=== PATIENT | female | born 1960 | race Caucasian/White ===

== ENCOUNTER 2019-09-04 10:34 | Outpatient (CLI) | payer BC, SELFPAY ==
--- NOTE | 2019-09-04 | XR_ITS ---
WS: [id number] Left foot, 3 views, 09/04/2019 Clinical Data: FOOT PAIN Comparison: None. Findings: No fractures or dislocations are seen. No bone destruction or erosion is noted. The joint spaces and soft tissues are normal. There is a small Achilles spur. XR/XR foot LT min 3V* [id number] Impression: Negative left foot.
--- NOTE | 2019-09-04 10:41 | XR_ITS ---
WS: [id number] Right foot, 3 views, 09/04/2019 Clinical Data: foot pain Comparison: None. Findings: No fractures or dislocations are seen. No bone destruction or erosion is noted. The joint spaces and soft tissues are normal. There is a small Achilles spur and a small plantar spur. XR/XR foot RT min 3V* [id number] Impression: Negative right foot.
== END 2019-09-04 10:35 | disposition home or self-care (01) ==
LOC: RAD 10:37
PROVIDERS: Family Provider Internal Medicine; Visit Provider Podiatrist Foot & Ankle Surgery
DX: M79.671 Pain in right foot (principal); M79.672 Pain in left foot
CPT/HCPCS: 73630

== ENCOUNTER 2020-10-01 15:03 | Outpatient (CLI) | payer OTHER, SELFPAY | END 2020-10-01 15:04 | disposition home or self-care (01) | LOC: SPT 15:04 | PROVIDERS: PCP Nurse Practitioner Family; Visit Provider Podiatrist Foot & Ankle Surgery | DX: Z46.89 Encounter for fitting and adjustment of other specified devices (principal); M72.2 Plantar fascial fibromatosis | CPT/HCPCS: 97760; L4397 ==

== ENCOUNTER 2020-12-31 10:45 | Observation (INO) | payer OTHER, SELFPAY ==
[2020-12-31] VITALS (9 sets, daily range): BP systolic 134–167; BP diastolic 78–106; PULSE 60–98; RESP 16–25; TEMP 36.4–36.7; O2SAT 90–97; BMI 32.8
--- NOTE | 2020-12-31 | CT_ITS ---
WS: [id number] CT HEAD NONCONTRAST HISTORY: STROKE ALERT TECHNIQUE: Contiguous axial imaging performed through the brain in 2.5 mm imaging. Bone and soft tiss ue windows. Sagittal and coronal reformats reviewed. All CT scans at [facility] use at least one of these dose optimization techniques: automated exposure control; mA and/or kV adjustment per pa tient size (includes targeted exams where dose is matched to clinical indication); or iterative recon struction. DLP: 895.01 mGy-cm. COMPARISON: None available. No acute intracranial hemorrhage, midline shift or mass effect. Very mild atrophy. There are several small lacunar infarcts within the basal ganglia. The largest may be a perivascular space along the inferior LEFT basal ganglia. No acute area of sulcal effacement. M ild chronic microvascular ischemic disease. Ventricles: Normal size with no hydrocephalus. No inferior displacement of the cerebellar tonsils. Paranasal sinuses: As visualized are clear. Mastoid air cells: Well pneumatized. Calvarium and scalp: Skull is intact with no soft tissue edema or swelling. CT/CT head wo con* [id number] IMPRESSION: 1. No acute intracranial hemorrhage or edema. 2. Bilateral, multiple small lacunar infarcts in the basal ganglia. Notified Roderick Magaña DO at 12/31/2020 10:59 AM.
--- NOTE | 2020-12-31 11:00 | ECG_ITS ---
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 Measurements Intervals Mcintosh Rate: 88 P: 33 CA: 158 QRS: 31 QRSD: 79 T: 55 QT: 368 QTc: 446 Interpretive Statements SINUS RHYTHM No previous ECG available for comparison Electronically Signed On 01-01-2021 7:31:28 CUT OFF SAWYER by Megan Clements M.D. [email or web address]
--- NOTE | 2020-12-31 11:02 | ED_ITS ---
HPI - Neuro Symptoms/Deficit General: Chief Complaint: Neuro Symptoms/Deficit Stated Complaint: STROKE ALERT/ R SIDE WEAKNESS Time Seen by Provider: 12/31/20 11:00 History of Present Illness: HPI Narrative: Ms. Ramirez is a 60-year-old lady with history of hypertension and depression who presents to the emergency department due to strokelike symptoms. Patient reports being at her baseline health and was starting to get ready feeling normal this morning when at about 930 she was standing in the bathroom had acute onset of bilateral foot numbness and weakness. She reports having difficulty walking at that time and managed to stumble towards her bed. There is no fall or head strike. She subsequently had right-sided numbness and weakness. Symptoms persisted until arrival at the emergency department. She denies similar episodes in the past. No history of neck or back injury. Overall the intensity symptoms was moderate to severe. The course is now improved with near complete resolution other than mild difference in sensory that she still reports on the right lower extremity. No other specific exacerbating relieving factors identified. Review of Systems General: Reports: 10 or more systems reviewed and unremarkable except in HPI and below PFSH ED PFSH: Medical History (Updated 01/02/21 @ 00:00 by ) Depression Heavy cigarette smoker Hypertension NSAID long-term use Surgical History History of bilateral ligation of fallopian tubes Family History Brother , At 48-49 of [place] CAD (coronary artery disease) Social History Smoking and tobacco status: current every day smoker cigarettes Packs smoked per day: 2 Alcohol intake: current Alcohol intake frequency: holidays/special occasions only Lives independently: Yes Household members: spouse Marital status: Current occupational status: employed 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 No acute distress. Eyes - PERRL, no conjunctival injection ENMT - Atraumatic external nose and ears. Moist mucous membranes NECK - supple. trachea midline CARDIOVASCULAR - regular rate and rhythm. RESPIRATORY -clear to auscultation bilaterally. ABDOMEN/GI - Nontender/Nondistended. MSK - Extremities without obvious deformity or tenderness to palpation SKIN - Warm, Dry NEURO - NIHSS 0. Course ED course: - Patient was seen and evaluated by me at bedside prior to my evaluation Dr. Christine with the neurology service per stroke activation protocol. NIHSS [address], improving to 0 upon recheck. - Patient placed on cardiac monitors, IV access obtained - Initial evaluation notable for no acute distress, nontoxic appearance. NIHSS upon my arrival 0 - Labs notable for no leukocytosis, elevated hemoglobin with unclear baseline. No acute metabolic abnormalities to explain patient's symptoms. No evidence of urinary tract infection. UDS positive for amphetamines however I think patient is extremely unlikely to have used amphetamines, more likely given pretest probability of false positive for cross-reactivity from venlafaxine though this is more typical of PCP positive. - Imaging notable for no acute stroke or severe vascular compromise - Upon serial reexamination after treatment the patient was similar without recurrence of symptoms, she still does note mild subjective sensory difference in the lower right extremity - Based on patient history, evaluation, labs, and imaging as interpreted the most likely cause of the patient's condition is strokelike episode concerning for TIA - The results of ED evaluation were discussed with the patient including plan for admission due to requirement for level of care not available if discharged to prevent significant worsening/deterioration. -Based on neurology service recommendations and ABCD2 score patient requires inpatient risk factor modification and additional evaluation - Patient was admitted without further deterioration or significant events. Vital Signs: Vital signs: Vital Signs Temperature 98.5 F 01/01/21 12:19 Pulse Rate 88 01/01/21 12:19 Respiratory Rate 14 01/01/21 12:19 Blood Pressure 138/70 01/01/21 12:19 Pulse Oximetry 98 01/01/21 12:19 MDM - Neuro Symptoms/Deficit Medical Records: Attestation: I reviewed the patient's medical records. Lab Data: Attestation: I reviewed the patient's lab results. Labs: Lab Results 12/31/20 12/31/20 12/31/20 11:06 11:06 11:06 WBC 7.2 10^3/uL 10^3/ uL (4.0-10.0) RBC 5.61 10^6/uL H 10 ^6/uL (4.1-5.3) Hgb 16.9 g/dL H g/dL (11.5-15.3) Hct 49.3 % H % (37.0-47.0) MCV 87.9 fl fl (81-99) MCH 30.1 pg pg (28.0-34.0) MCHC 34.3 g/dL g/dL (30.0-36.0) RDW 12.8 % % (12.1-15.1) Plt Count 333 10^3/cmm 10^3 /cmm (130-400) MPV 11.0 fL H fL (7.4-10.4) Neut % (Auto) 62.7 % % Lymph % (Auto) 26.3 % % [place] % (Auto) 6.5 % % Eos % (Auto) 2.8 % % Baso % (Auto) 0.7 % % Neut # (Auto) 4.52 10^3/uL 10^3 /uL (1.8-7.7) Lymph # (Auto) 1.9 10^3/uL 10^3/ uL (0.8-4.8) [place] # (Auto) 0.5 10^3/uL 10^3/ uL (0.2-0.9) Eos # (Auto) 0.2 10^3/uL 10^3/ uL (0.0-0.8) Baso # (Auto) 0.1 10^3/uL 10^3/ uL (0.0-0.1) Nucleated RBC % (a uto) 0 % % Nucleated RBCs # 0.0 /100WBC /100W BC PT 12.00 SECONDS L S ECONDS (12.1-14.9) INR 0.86 (0.8-1.2) APTT 27.6 SECONDS SECO NDS (23.9-36.7) Sodium 138 mmol/L mmol/L (136-145) Potassium 4.1 mmol/L mmol/L (3.5-5.1) Chloride 100 mmol/L mmol/L (98-107) Carbon Dioxide 24 mmol/L mmol/L (22-29) Anion Gap 18.1 (5-19) BUN 13 mg/dL mg/dL (6-20) Creatinine 0.6 mg/dL mg/dL (0.5-0.9) GFR Calculation 102.7 mL/min mL/m in (90-130) Glucose 130 mg/dL H mg/dL (65-115) POC Glucose Estimat Average Gl ucose Hemoglobin A1c Calculated Osmolal ity 288 mOsm/kg mOsm/ kg (285-295) Calcium 9.5 mg/dL mg/dL (8.5-10.5) Total Bilirubin 0.5 mg/dL mg/dL (0.15-1.2) AST 42 U/L H U/L (0-32) ALT 71 U/L H U/L (0-33) Alkaline Phosphata se 123 IU/L H IU/L (35-105) Troponin T Baselin e Troponin T 120 Min [place] Delta Troponin T Total Protein 6.9 g/dL g/dL (6.6-8.7) Albumin 4.7 g/dL g/dL (3.5-5.2) Globulin 2.2 g/dL g/dL (1.3-4.6) Triglycerides Cholesterol LDL Cholesterol, C alc Total VLDL Cholest nicolasa HDL Cholesterol Cholesterol/HDL Ra charli Urine Color Urine Appearance Urine pH Ur Specific Gravit y Urine Protein Urine Glucose (UA) Urine Ketones Urine Blood Urine Nitrate Urine Bilirubin Urine Urobilinogen Ur Leukocyte Emy ase Urine Opiates Scre en Ur Barbiturates Sc reen Ur Phencyclidine S crn Ur Amphetamines Sc reen U Benzodiazepines Scrn Urine Cocaine Scre en U Marijuana (THC) Screen 12/31/20 12/31/20 12/31/20 11:06 11:06 11:06 WBC RBC Hgb Hct MCV MCH MCHC RDW Plt Count MPV Neut % (Auto) Lymph % (Auto) [place] % (Auto) Eos % (Auto) Baso % (Auto) Neut # (Auto) Lymph # (Auto) [place] # (Auto) Eos # (Auto) Baso # (Auto) Nucleated RBC % (a uto) Nucleated RBCs # PT INR APTT Sodium Potassium Chloride Carbon Dioxide Anion Gap BUN Creatinine GFR Calculation Glucose POC Glucose Estimat Average Gl ucose 108 Hemoglobin A1c 5.4 % % (4.0-6.0) Calculated Osmolal ity Calcium Total Bilirubin AST ALT Alkaline Phosphata se Troponin T Baselin e 11 ng/L H ng/L (0-10) Troponin T 120 Min [place] Delta Troponin T Total Protein Albumin Globulin Triglycerides 108 mg/dL mg/dL (0-150) Cholesterol 209 mg/dL H mg/dL (0-200) LDL Cholesterol, C alc 128 mg/dL mg/dL (50-129) Total VLDL Cholest nicolasa 22 mg/dL mg/dL (0-30) HDL Cholesterol 59 mg/dL L mg/dL (60-100) Cholesterol/HDL Ra charli 3.54 mg/dL mg/dL (0.0-4.40) Urine Color Urine Appearance Urine pH Ur Specific Gravit y Urine Protein Urine Glucose (UA) Urine Ketones Urine Blood Urine Nitrate Urine Bilirubin Urine Urobilinogen Ur Leukocyte Emy ase Urine Opiates Scre en Ur Barbiturates Sc reen Ur Phencyclidine S crn Ur Amphetamines Sc reen U Benzodiazepines Scrn Urine Cocaine Scre en U Marijuana (THC) Screen 12/31/20 12/31/20 12/31/20 11:11 12:10 12:10 WBC RBC Hgb Hct MCV MCH MCHC RDW Plt Count MPV Neut % (Auto) Lymph % (Auto) [place] % (Auto) Eos % (Auto) Baso % (Auto) Neut # (Auto) Lymph # (Auto) [place] # (Auto) Eos # (Auto) Baso # (Auto) Nucleated RBC % (a uto) Nucleated RBCs # PT INR APTT Sodium Potassium Chloride Carbon Dioxide Anion Gap BUN Creatinine GFR Calculation Glucose POC Glucose 138 mg/dL H mg/dL (70-110) Estimat Average Gl ucose Hemoglobin A1c Calculated Osmolal ity Calcium Total Bilirubin AST ALT Alkaline Phosphata se Troponin T Baselin e Troponin T 120 Min [place] Delta Troponin T Total Protein Albumin Globulin Triglycerides Cholesterol LDL Cholesterol, C alc Total VLDL Cholest nicolasa HDL Cholesterol Cholesterol/HDL Ra charli Urine Color Yellow (Yellow) Urine Appearance Clear (CLEAR) Urine pH 7 (5-7) Ur Specific Gravit y 1.000 L (1.005-1.030) Urine Protein Neg (Negative) Urine Glucose (UA) Norm (Normal) Urine Ketones Negative (Negative) Urine Blood Neg (Negative) Urine Nitrate Negative (Negative) Urine Bilirubin Neg (Negative) Urine Urobilinogen Norm mg/dL mg/dL (Negative) Ur Leukocyte Emy ase Negative (Negative) Urine Opiates Scre en Negative ng/mL ng /mL (Negative) Ur Barbiturates Sc reen Negative ng/mL ng /mL (Negative) Ur Phencyclidine S crn Negative ng/mL ng /mL (Negative) Ur Amphetamines Sc reen Positive ng/mL H ng/mL (Negative) U Benzodiazepines Scrn Negative ng/mL ng /mL (Negative) Urine Cocaine Scre en Negative ng/mL ng /mL (Negative) U Marijuana (THC) Screen Negative ng/mL ng /mL (Negative) 12/31/20 13:06 WBC RBC Hgb Hct MCV MCH MCHC RDW Plt Count MPV Neut % (Auto) Lymph % (Auto) [place] % (Auto) Eos % (Auto) Baso % (Auto) Neut # (Auto) Lymph # (Auto) [place] # (Auto) Eos # (Auto) Baso # (Auto) Nucleated RBC % (a uto) Nucleated RBCs # PT INR APTT Sodium Potassium Chloride Carbon Dioxide Anion Gap BUN Creatinine GFR Calculation Glucose POC Glucose Estimat Average Gl ucose Hemoglobin A1c Calculated Osmolal ity Calcium Total Bilirubin AST ALT Alkaline Phosphata se Troponin T Baselin e Troponin T 120 Min [place] 10.41 ng/L H ng/L (0-10) Delta Troponin T -0.59 ABS# L ABS# (0-10) Total Protein Albumin Globulin Triglycerides Cholesterol LDL Cholesterol, C alc Total VLDL Cholest nicolasa HDL Cholesterol Cholesterol/HDL Ra charli Urine Color Urine Appearance Urine pH Ur Specific Gravit y Urine Protein Urine Glucose (UA) Urine Ketones Urine Blood Urine Nitrate Urine Bilirubin Urine Urobilinogen Ur Leukocyte Emy ase Urine Opiates Scre en Ur Barbiturates Sc reen Ur Phencyclidine S crn Ur Amphetamines Sc reen U Benzodiazepines Scrn Urine Cocaine Scre en U Marijuana (THC) Screen EKG Data^: EKG 1: Attestation: I personally reviewed and interpreted this EKG as follows: EKG interpretation date: 12/31/20 EKG interpretation time: 11:38 Interpretation: Twelve-lead EKG shows a regular rhythm at a rate of 88. PA interval 158, QRS duration 79, QTc 414. Normal axis. Interpretation: Sinus rhythm. Discharge Plan Discharge Admit Provider: Chucky Sorto Clinical Impression: TIA (transient ischemic attack) Condition: Stable Discharge Orders: Discharge Order (Routine); Ordered 01/01/21 Ordered By: Chucky Sorto Discharge Diet: Cardiac Discharge Activity: Increase activity as tolerated and As per PT/OT instructions Coding Level of Care Code ED Communication Coordinator for Chg Fwd
--- NOTE | 2020-12-31 11:06 | CT_ITS ---
WS: [id number] CT ANGIOGRAM CEREBRAL AND CAROTID ARTERIES HISTORY: stroke like symptoms-resolved TECHNIQUE: CT angiogram is performed of the carotid and cerebral arteries. During arterial injection imaging is obtained from the skull vertex to the aortic arch in 1.25 mm imaging. Coronal and sagittal reformats are submitted. Additional multi planar reformats of the carotid and cerebral arteries are submitted, MIP imaging also reviewed. NASCET criteria utilized. [facility] CT [facility] at least one of these dose optimization techniques: automated exposure control; mA and/or kV adjust ment per patient size (includes targeted exams where dose is matched to clinical indication); or iter ative reconstruction. CONTRAST: Omnipaque 350; 95 mL IV. DLP: 5192.63 mGy.cm COMPARISON: None available. Carotid Angiogram: Right carotid: Common carotid artery: Arises normally from the innominate artery. No significant plaque or stenosis. Internal carotid artery: No plaque or stenosis. External carotid artery: Patent. Left carotid: Common carotid artery: Mild intimal thickening throughout. No stenosis. Internal carotid artery: Focal soft plaque and intimal thickening involving the proximal ICA. 50% blanco nosis at the proximal ICA. External carotid artery: Patent. Right vertebral artery: Small caliber but patent. Left vertebral artery: Small amount of intimal thickening and calcification proximally. No stenosis. Subclavian arteries: No stenosis or significant abnormality. Upper thorax: Normal. Thyroid gland: 8 mm RIGHT thyroid nodule. Osseous structures: Slight reversal normal cervical lordosis centered at C5-6. CEREBRAL ANGIOGRAM: Intracranial vertebral arteries: Dominant LEFT vertebral artery. No occlusions. Basilar artery: No significant stenosis or occlusion. No aneurysm. Intracranial Internal carotid arteries: Mild atherosclerotic plaque through the cavernous portions of the intracranial carotid arteries. Slightly greater plaque distribution on the LEFT. Middle cerebral arteries: Normal. Anterior cerebral arteries and ACOM: Normal. Posterior cerebral arteries and PCOM's: Normal. Dural venous sinuses are normally enhancing. Mastoid air cells: Normal. Paranasal sinuses: Normal. Calvarium: Normal. CT/CT angio headneck* [id number] IMPRESSION: 1. LEFT proximal ICA stenosis 50% predominantly due to soft plaque. No stenosi s on the RIGHT. 2. Mild atherosclerotic plaque within the cavernous portions of the intracrani al carotid arteries.
[2020-12-31 11:16] LABS: Glucose Point of Care 138 mg/dL (70-110)
[2020-12-31 11:20] LABS: Basophils # 0.1 10^3/uL (0.0-0.1); Basophils % 0.7 %; Eosinophils # 0.2 10^3/uL (0.0-0.8); Eosinophils % 2.8 %; Hematocrit 49.3 % (37.0-47.0); Hemoglobin 16.9 g/dL (11.5-15.3); Lymphocytes # 1.9 10^3/uL (0.8-4.8); Lymphocytes % 26.3 %; Mean Corpuscular HGB Conc 34.3 g/dL (30.0-36.0); Mean Corpuscular Hemoglobin 30.1 pg (28.0-34.0); Mean Corpuscular Volume 87.9 fl (81-99); Monocytes # 0.5 10^3/uL (0.2-0.9); Monocytes % 6.5 %; Neutrophils # 4.52 10^3/uL (1.8-7.7); Neutrophils % 62.7 %; Nucleated Red Blood Cells % 0 %; Platelet Count 333 10^3/cmm (130-400); Red Blood Count 5.61 10^6/uL (4.1-5.3); Red Cell Distribution Width 12.8 % (12.1-15.1); White Blood Count 7.2 10^3/uL (4.0-10.0)
[2020-12-31 11:41] LABS: INR 0.86 (0.8-1.2)
[2020-12-31 11:42] LABS: Partial Thromboplastin Time 27.6 SECONDS (23.9-36.7)
[2020-12-31 11:43] LABS: Troponin(5th) Baseline 11 ng/L (0-10)
[2020-12-31 11:45] LABS: Alanine Aminotransferase 71 U/L (0-33); Albumin Level 4.7 g/dL (3.5-5.2); Alkaline Phosphatase 123 IU/L (35-105); Anion Gap 18.1 (5-19); Aspartate Amino Transferase 42 U/L (0-32); Blood Urea Nitrogen 13 mg/dL (6-20); Calcium 9.5 mg/dL (8.5-10.5); Carbon Dioxide 24 mmol/L (22-29); Chloride 100 mmol/L (98-107); Globulin 2.2 g/dL (1.3-4.6); Glomerular Filtration Rate 102.7 mL/min (90-130); Glucose 130 mg/dL (65-115); Osmolality Calculated 288 mOsm/kg (285-295); Potassium 4.1 mmol/L (3.5-5.1); Sodium 138 mmol/L (136-145); Total Bilirubin 0.5 mg/dL (0.15-1.2); Total Protein 6.9 g/dL (6.6-8.7)
[2020-12-31] MEDS: iohexol 350 mg/mL 100 mL Btl IV (11:53)
[2020-12-31 12:32] LABS: Add Urine Microscopic? NO; Charge for UA Resulting for Rev
--- NOTE | 2020-12-31 12:39 | XRR_ITS ---
PROCEDURE INFORMATION: Exam: XR Chest Exam date and time: 12/31/2020 12:39 PM Age: 60 years old Clinical indication: Other: Strokelike symptoms; Bilat foot numbness/weakness; Patient HX: Strokelike symptoms with bilat foot numbness and weakness; Right side numbness/weakness; Additional info: Stroke like symptoms TECHNIQUE: Imaging protocol: XR of the chest. Views: 1 view. COMPARISON: CR Chest 2 views* [id number] 07/24/2016 12:18 PM FINDINGS: Lungs: Unremarkable. No consolidation. Pleural spaces: Unremarkable. No pleural effusion. No pneumothorax. Heart/Mediastinum: Unremarkable. No cardiomegaly. Bones/joints: Unremarkable. XR/XR chest 1V portable [id number] IMPRESSION: No acute findings. Radiation Dose CTDIVOL = (mGy): DLP = (mGy-cm)
[2020-12-31 12:42] LABS: Bilirubin Urine Neg (Negative); Blood Urine Neg (Negative); Glucose Urine UA Norm (Normal); Ketones Urine Negative (Negative); Leukocyte Esterase Urine Negative (Negative); Nitrate Urine Negative (Negative); Protein Urine Neg (Negative); Urine Appearance Clear (CLEAR); Urine Color Yellow (Yellow); Urobilinogen Urine Norm (Negative); pH Urine 7 (5-7)
--- NOTE | 2020-12-31 12:42 | PM.SAN ---
Stroke Alert Activation ED Arrival Date: 12/31/20 ED Arrival Time: 11:00 ED Physican at Bedside: 11:15 Last Known Normal/at Baseline: 1-2 hours ago Other Last Known Well Infomation: I was called stat for stroke at 1019. I called the emergency department and spoke with personnel who reported EMS was in route with the patient experiencing symptoms and signs of stroke and likely a TPA candidate. Personnel in the emergency department began preparing for TPA administration. I heard the [facility] [place] and proceeded to the emergency department, arriving in CAT scan as the patient did. I reviewed her CAT scan of the head on the monitor and noticed that she had bilateral lacunar infarcts and no acute changes. Her Lukens appeared to be remote. I accompanied the patient back to the emergency department and performed NIH stroke scale. The nurses were preparing to give TPA because the patient's NIH stroke scale score was 5 based on nursing assessment as she had rolled through the door. By the time I repeated her NIH stroke scale as we were preparing to give TPA her signs and symptoms had completely resolved. She was able to stand at the bedside. There was no drift. Her sensory exam was symmetric. Eye movements were full. Based on the history I suspect posterior circulation TIA. The patient said that at 930 this morning she was getting dressed when suddenly her legs felt so weak that they would not hold her up. She staggered to the bed and was just able to get on the bed for for her legs completely gave out. Both legs felt numb and then her right side was numb. Her talked with her and he did not notice any slurring of speech or speech hesitation. She did not experience diplopia. When she arrived in [facility] via [facility] ambulance the nurse performed a rapid NIH stroke scale on the way to CAT scan and gave her 5 for right-sided weakness and numbness arm and leg. Stroke Alert Activated by: [facility] Stroke Alert Activation Time: 10:19 Stroke MD @ Bedside Time: 10:19 NIH Stroke Scale Time: 11:00 NIH stroke score NIHSS: Level Of Consciousness - 1a: 0 Level Of Consciousness Questions - 1b: Both Correct Level Of Consciousness Commands - 1c: Both Correct Best Gaze - 2: Normal Visual Watts - 3: No Visual Loss Facial Palsy - 4: Normal Motor Arm Right - 5: No Drift Motor Arm Left - 5: No Drift Motor Leg Right - 6: No Drift Motor Leg Left - 6: No Drift Limb Ataxia - 7: Absent Sensory - 8: Normal Best Language - 9: No Aphasia Dysarthia - 10: Normal Extinction And Inattention - 11: 0 Score: Total Score: 0 Stroke Alert Data/Treatment Time to CT of Head: 11:00 CT Results Time: 11:05 CT Impression: Several small old lacunar infarcts bilaterally Stroke Risk Factors: hypertension, obesity and smoker tPA Contraindication: tPA Contraindication: Treatment not indcated tPA Admin Prior to Arrival: No Patient & Family Educated on: Cause of Stroke, Risk Factors and Treament Plan Other Patient & Family Education: I talked with the patient and her about the reasons not to give TPA since her signs and symptoms have resolved. I made sure she could walk. I performed a thorough neurologic exam and talked with the patient about the plan. I talked with Dr. Burciaga, who took over the patient's care, and with Dr. Magaña who saw the patient on entrance. Standardized Stroke Orders Used: Yes Other Information: CT angiogram 1. LEFT proximal ICA stenosis 50% predominantly due to soft plaque. No stenosis on the RIGHT. 2. Mild atherosclerotic plaque within the cavernous portions of the intracranial carotid arteries. Dictated By:Vandana Munroe DOSigned By:Vandana Munroe DOSigned Date/Time:12/31/20 Critical Care Time Critical Care Time: 30 - 74 mins A&P Assessment and plan (1) TIA (transient ischemic attack): TIA, possibly posterior circulation. Her symptoms resolved at the time we were going to give her TPA. She has nonsignificant left carotid stenosis in the distribution of her weakness but surgical approach is not recommended. She probably needs to come in for observation, echocardiogram and to initiate antiplatelet therapy and antilipid therapy. Status: Acute Coding Level of Care Code Acute Radio Station Operator for Maddie Cade Diagnoses TIA (transient ischemic attack) G45.9
[2020-12-31 12:46] LABS: Amphetamines Screen Urine Positive (Negative); Barbiturates Screen Urine Negative (Negative); Benzodiazepines Screen Urine Negative (Negative); Cocaine Screen Urine Negative (Negative); Opiate Screen Urine Negative (Negative); PCP Screen Urine Negative (Negative); THC Screen Urine Negative (Negative)
[2020-12-31 13:43] LABS: Troponin 5 2HR 10.41 ng/L (0-10)
[2020-12-31 13:50] LABS: Troponin 5 2HR Delta -0.59 ABS# (0-10)
--- NOTE | 2020-12-31 14:58 | P.HP_ITS ---
Providers/Chief Complaint Admitting Physician: Chucky Sorto Primary Care Provider: ANNA Tellez Chief Complaint: STROKE ALERT/ R SIDE WEAKNESS History of Present Illness Pleasant 60-year-old lady current smoker, smoking 2 packs/day, with history of HTN, who also takes Aleve at home, family history of coronary disease with brother passing away of PR at age 48-49, having recovered from COVID-19 infection about a month ago, has been intermittently staying with her mother due to his mother's advanced age, this morning around 9:30 AM while at her mother's place noticed right side upper and lower extremity weakness, tingling, felt that she was going to fall down, so as but she could walk to the bed, reached for the phone, her states that she perhaps did not entirely sounds like her usual self on the phone when she had called him for help. No facial droop was noticed. She denied vision deficits when trying to dial the phone. Denied other symptoms. In ER she was assessed for possible CVA, CT of the head did not reveal any bleeding, revealed bilateral multiple small lacunar infarcts in basal ganglia. She was assessed by neurology as part of stroke code. Her deficits were rapidly improving, with near resolution of right-sided weakness, resolution of paresthesia. No other additional symptoms. She was not found to be candidate for TPA. CTA head and neck revealed left proximal ICA stenosis 50% predominantly due to soft plaque, no stenosis on the right. Mild atherosclerotic plaque within the cavernous portions of intracranial carotid arteries. Review of Systems Const: Denies: fever(s), chills, body aches or malaise Eyes: Denies: change in vision or eye redness ENMT: Denies: throat pain, oral sores or ear or mastoid pain Card: Denies: chest pain, edema, pre-syncope or dyspnea on exertion Resp: Denies: dyspnea, productive cough, change in phlegm color or hemoptysis GI: Denies: abdominal pain, nausea, vomiting, diarrhea, constipation, hematochezia or melena : Denies: flank pain, urinary frequency or hematuria Musc: Denies: back pain, joint swelling or joint redness Skin/Breast: Denies: rash, sores or new lesions Neuro: Reports: weakness in extremities; Denies: headache(s), numbness in extremities, dizziness, confusion or seizure- like activity Endo: Denies: polyuria or polydipsia Doyle/Lymph: Denies: easy bleeding or purpura All/Imm: Denies: urticaria, throat swelling or tongue swelling Medications/Allergies Home Medications Medication Instructions Recorded Confirmed Last Taken Type amlodipine 5 mg tablet 5 mg PO BEDTIME 09/04/19 12/31/20 12/30/20 History venlafaxine 150 mg 150 mg PO BEDTIME 09/04/19 12/31/20 12/30/20 History capsule,extended release 24 hr Night splint #1 ea 10/01/20 12/31/20 Unknown Rx naproxen sodium [Aleve] 440 mg PO BEDTIME PRN 12/31/20 12/31/20 12/30/20 History Allergies Allergy/AdvReac Type Severity Reaction Status Date / Time No Known Allergies Allergy Verified 12/31/20 12:28 PFSH Acute PFSH: Medical History (Updated 12/31/20 @ 15:07 by Chucky Sorto MD) Depression Heavy cigarette smoker Hypertension NSAID long-term use Surgical History History of bilateral ligation of fallopian tubes Family History Brother , At 48-49 of PR CAD (coronary artery disease) Social History Smoking and tobacco status: current every day smoker cigarettes Packs smoked per day: 2 Alcohol intake: current Alcohol intake frequency: holidays/special occasions only Substance/Drug Use: never Lives independently: Yes Household members: spouse Marital status: Current occupational status: employed 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 Vitals/I&O/Wt Last Vital Signs Temp 98.1 F 12/31/20 11:09 Pulse 89 12/31/20 12:42 Resp 19 H 12/31/20 12:42 BP 160/83 12/31/20 12:42 Pulse Ox 96 12/31/20 12:42 Weight last 48 hrs Weight 89.4 kg Physical Exam Narrative: EXAM NARRATIVE: Accompanied by family Const: COMMON NORMALS: no acute distress and patient oriented x3 NUTRITIONAL APPEARANCE: overweight HENMT: COMMON NORMALS: oropharynx normal Neck/C-Spine: COMMON NORMALS: no JVD Resp: COMMON NORMALS: normal respiratory effort and clear to auscultation bilaterally AUSCULTATION: clear to auscultation bilaterally Cardio: COMMON NORMALS: no JVD, regular rhythm, S1 normal heart sound present, S2 normal heart sound present and No murmurs present (Cardio) RHYTHM: regular rhythm HEART SOUNDS: S1 normal heart sound present and S2 normal heart sound present GI: COMMON NORMALS: Normal to inspection, nondistended, normoactive bowel sounds present, Soft to palpation and non-tender PALPATION: Yes Soft to palpation Extremity: COMMON NORMALS: no joint enlargement and no pedal edema Neuro: COMMON NORMALS: patient oriented x3 and moves all extremities SENSORIUM/ORIENTATION: Yes alert MENINGEAL SIGNS: Yes no meningeal signs COORDINATION/BALANCE: [id number] test normal and other (Slightly more difficulty with right side [id number]) SPEECH: speech normal SENSORY EXAM: Yes Normal double simultaneous stimulation for sensation; No sensory level loss detected MOTOR EXAM: Pronator motor function not present COORDINATION: [id number] test normal OTHER: Responding and following commands well. No trouble with horizontal tracking. Visual flores full to confrontation. Skin: COMMON NORMALS: no rashes or lesions noted GENERAL SKIN EXAM: no rashes or lesions noted Data : 12/31/20 11:06 12/31/20 11:06 A&P Assessment and plan (1) Acute CVA (cerebrovascular accident): Symptoms of right-sided weakness, right-sided paresthesia mostly resolved, but does have some residual mild coordination difficulty with right side [id number] compared to the left side. Strength, sensation symmetrical. Noted multiple prior small lacunar infarcts in basal ganglia. She denies known CVA. History of hypertension. Denies history of atrial fibrillation. Does get intermittent palpitations. Reports intermittent chest tightness. Heavy smoker. Has not been successful in quitting in the past. Reports history of hypercholesterolemia. Also reports daily NSAID use. Not a candidate for TPA. No significant obstruction noted on CTA. Aspirin, statin, monitor on telemetry, obtain TTE, monitor blood pressures. For now hold off amlodipine, permissive hypertension. PT, OT, ST evaluation. A1c, lipid profile With occasional palpitations, multiple small coronary CVA, may benefit from cardiac monitoring after discharge. Encouraged her to avoid NSAIDs. Follow-up with neurology in office. Status: Acute (2) Heavy cigarette smoker: Discussed with her importance of smoking cessation, especially with history of CAD in the family, currently CVA, other risks of cardiovascular dise ase, risk of lung disease, risk cancers. She verbalized understanding. States has not been successful so far. Continue to encourage. Nicotine replacement in case of cravings. Status: Acute (3) Angina of effort: Discussed with her concern of episodes of intermittent chest heaviness being due to possible underlying coronary disease. Again encouraged her to stop smoking. Additional assessment of cardiovascular risk factors as above. Would benefit from additional assessment by stress testing once she is out of acute episode of illness. No chest pain or pressure currently. EKG with sinus rhythm. Does report occasional palpitations. Encouraged her to avoid NSAIDs. Status: Acute Additional A&P Information Positive urine amphetamine screen: Discussed with her, she denies any amphetamine use. No history of drug use. Possibly cross reaction from venlafaxine. History of depression: Venlafaxine Attestations Medical Necessity Statement*: Place in observation for additional assessment following acute CVA Coding Level of Care Code Acute Data Analytics Architect for Maddie Cade Diagnoses Acute CVA (cerebrovascular accident) I63.9 Heavy cigarette smoker F17.210 Angina of effort I20.8
--- NOTE | 2020-12-31 15:34 | USCV_ITS ---
Lorraine Ramirez Age: 60 Gender: F : 1960 Exam Date: 12/31/2020 15:55 Ordering Phys: Chucky Sorto MD Technologist: Moan Joseph Exam Location: [facility] – [place] Indication: CVA RT SIDE BP: / HR: 93 Rhythm: Sinus Technical Quality: Adequate MEASUREMENTS (Male / Female) Normal Values 2D ECHO LV Diastolic Diameter PLAX 2.4 cm 4.2 - 5.9 / 3.9 - 5.3 cm LV Systolic Diameter PLAX 1.7 cm LV Chamber Size 3.1 cm IVS Diastolic Thickness 1.3 cm 0.6 - 1.0 / 0.6 - 0.9 cm IVS Systolic Thickness 1.4 cm LVPW Diastolic Thickness 0.9 cm 0.6 - 1.0 / 0.6 - 0.9 cm LVPW Systolic Thickness 1.5 cm RV Chamber Size 2.7 cm LVOT Diameter 2.1 cm LV Ejection Fraction 2D Teich 61.0 % LV Ejection Fraction MOD 2C 56.1 % LV Ejection Fraction 2C AL 60.1 % LA Diameter 3.4 cm LA Width 2.9 cm LA Height 2.5 cm RA Width 2.6 cm RA Height 3.0 cm Aorta at Sinotubular Diameter 2.6 cm M-MODE LV Diastolic Diameter MM 4.0 cm 4.2 - 5.9 / 3.9 - 5.3 cm LV Systolic Diameter MM 2.5 cm LV Ejection Fraction MM Teich 70.2 % IVS Diastolic Thickness MM 1.0 cm 0.6 - 1.0 / 0.6 - 0.9 cm IVS Systolic Thickness MM 1.0 cm LVPW Diastolic Thickness MM 1.3 cm 0.6 - 1.0 / 0.6 - 0.9 cm LVPW Systolic Thickness MM 1.7 cm Aortic Annulus Diameter 2.7 cm LA Ao Ratio MM 1.5 MV E Point Septal Separation 0.5 cm DOPPLER AV Peak Velocity 132.0 cm/s LVOT Peak Velocity 90.0 cm/s AV Area Cont Eq vti 2.8 cm squared AV Area Cont Eq pk 2.4 cm squared MV Area PHT 3.4 cm squared Mitral E to A Ratio 0.8 MV E' Velocity 67.0 cm/s Mitral E to LV E' Septal Ratio 11.6 TR Peak Velocity 179.2 cm/s TR Peak Gradient 12.8 mmHg TR Mean Velocity 137.4 cm/s TR Mean Gradient 8.1 mmHg TR Velocity Time Integral 41.1 cm TV Peak E Velocity 83.0 cm/s PV Peak Velocity 119.0 cm/s RV Acceleration Time 0.1 s RV Ejection Time 0.3 s RV AcT/ET 0.4 FINDINGS Left Ventricle Normal left ventricular size and systolic function, EF 61%. Mild left ventricular hypertrophy. No regional wall motion abnormalities. Grade I/IV diastolic dysfunction (abnormal relaxation filling pattern), normal to mildly elevated filling pressures. Right Ventricle The right ventricle is normal in size and function. Right Atrium The right atrium is normal in size. Left Atrium The left atrium is normal in size. Mitral Valve No gross abnormalities noted Aortic Valve No gross abnormalities noted Tricuspid Valve No gross abnormalities noted Pulmonic Valve Pulmonic valve not well visualized. Pericardium Normal pericardium without effusion. Aorta Normal ascending aorta dimension. CONCLUSIONS Normal left ventricular size and systolic function, EF 61%. Mild left ventricular hypertrophy. No regional wall motion abnormalities. Grade I/IV diastolic dysfunction (abnormal relaxation filling pattern), normal to mildly elevated filling pressures. No significant valvular abnormalities Normal cardiac chamber sizes There are no intracardiac masses. There is no pericardial effusion. No previous study is available for comparison. Dr Sima Palma MD FACC (Electronically Signed) Final Date: 31 December 2020 17:56 S
--- NOTE | 2020-12-31 15:51 | PC.NURSE ---
Patient is getting an Echo at this time.
[2020-12-31 16:19] LABS: Chol HDL Ratio 3.54 mg/dL (0.0-4.40); Cholesterol 209 mg/dL (0-200); HDL Cholesterol 59 mg/dL (60-100); LDL Cholesterol Calculated 128 mg/dL (50-129); Triglycerides 108 mg/dL (0-150); VLDL Cholestrol Calculation 22 mg/dL (0-30)
[2020-12-31 16:52] LABS: Estmated Average Glucose 108; Hemoglobin A1C 5.4 % (4.0-6.0)
[2020-12-31] MEDS: aspirin 325 mg Tablet PO (17:40)
[2020-12-31] MEDS: heparin 5,000 unit/mL INJ 1 mL 5000 UNIT SUBCUT (17:42)
[2020-12-31 18:07] LABS: Troponin 5 6HR 11.17 ng/L (0-10); Troponin 5 6HR Delta 0.17 ng/L (0-12)
[2020-12-31] MEDS: venlafaxine ER (24HR) 150 mg Capsule PO (20:47)
[2020-12-31] MEDS: atorvastatin 40 mg Tablet PO (20:47)
[2021-01-01] MEDS: heparin 5,000 unit/mL INJ 1 mL 5000 UNIT SUBCUT ×2 (01:09→07:04)
[2021-01-01] MEDS: acetaminophen 325 mg Tablet 650 MG PO (01:13)
[2021-01-01 03:29] VITALS: BP 148/83; PULSE 83; RESP 17; TEMP 36.8; O2SAT 94
[2021-01-01 05:51] LABS: Basophils % 0.6 %; Eosinophils # 0.2 10^3/uL (0.0-0.8); Eosinophils % 2.6 %; Hematocrit 45.9 % (37.0-47.0); Hemoglobin 15.5 g/dL (11.5-15.3); Lymphocytes # 1.9 10^3/uL (0.8-4.8); Lymphocytes % 27.5 %; Mean Corpuscular HGB Conc 33.8 g/dL (30.0-36.0); Mean Corpuscular Hemoglobin 29.9 pg (28.0-34.0); Mean Corpuscular Volume 88.4 fl (81-99); Mean Platelet Volume 10.8 fL (7.4-10.4); Monocytes # 0.4 10^3/uL (0.2-0.9); Monocytes % 6.3 %; Neutrophils # 4.25 10^3/uL (1.8-7.7); Neutrophils % 62.4 %; Nucleated Red Blood Cells % 0 %; Platelet Count 293 10^3/cmm (130-400); Red Blood Count 5.19 10^6/uL (4.1-5.3); Red Cell Distribution Width 12.6 % (12.1-15.1); White Blood Count 6.8 10^3/uL (4.0-10.0)
[2021-01-01 06:00] VITALS: PULSE 64
[2021-01-01 06:20] LABS: Alanine Aminotransferase 71 U/L (0-33); Albumin Level 4.2 g/dL (3.5-5.2); Alkaline Phosphatase 96 IU/L (35-105); Blood Urea Nitrogen 6 mg/dL (6-20); Calcium 9.4 mg/dL (8.5-10.5); Carbon Dioxide 25 mmol/L (22-29); Chloride 102 mmol/L (98-107); Globulin 2.6 g/dL (1.3-4.6); Glomerular Filtration Rate 126.7 mL/min (90-130); Glucose 103 mg/dL (65-115); Osmolality Calculated 282 mOsm/kg (285-295); Sodium 137 mmol/L (136-145); Thyroid Stimulating Hormone 2.09 uIU/mL (0.27-4.20); Total Bilirubin 0.5 mg/dL (0.15-1.2); Total Protein 6.8 g/dL (6.6-8.7)
[2021-01-01 06:25] LABS: Anion Gap 13.8 (5-19); Potassium 3.8 mmol/L (3.5-5.1)
[2021-01-01 06:26] LABS: Aspartate Amino Transferase 51 U/L (0-32)
[2021-01-01 08:00] VITALS: BP 138/70; PULSE 88; RESP 14; TEMP 36.4; O2SAT 98
[2021-01-01] MEDS: aspirin 325 mg Tablet PO (08:05)
--- NOTE | 2021-01-01 09:24 | PC.CHAP ---
Pastoral Care Encounter/Spiritual Assessment Type of Contact [] Declined investigator internal revenue visit [] Patient/Family/Request visit [] Outpatient visit [] Follow-up visit [] Physician referral [] Code/Alert [x] Routine visit [] Staff referral [] Actively dying [] Patient sleeping [] Family support [] [] Out of room [] Palliative care [] [] Receiving care in room [] Pre-surgical visit [] Trauma [] Long length of stay [] ICU visit [] Other: Relational/Emotional Strength [x] Patient feels connected with others/family/visitors/staff [] Distress [] Loneliness/isolation [] Abandonment Spirituality of Patient [x] Person of Ina [x] Attends Alevism of their Ina [x] Believes in Prayer [] Reads Bible or Mosque materials [] There are Spiritual issues to be addressed Organisational Psychologist Interventions [x] Prayer [x] Active listening [x] Non-anxious presence [x] Spiritual/emotional support [] Crisis/trauma care [] Spiritual counseling [] Bereavement support [] Provided bereavement packet [] Provided Bible/devotional materials [] Provided toy/stuffed animal, coloring book to patient or family member [] Provided Communion [] Anointing/[place] [] Salvation [x] Completed spiritual assessment [] Other: Impact on Illness or Injury [] Angry [] Fearful [] Anxious [] Often cries [] Exhaustion [] Unable to work [] Unable to attend taoism [] Unable to walk/stand [] Unable to read [] Unable to drive [] Unable to eat/drink [] Unable to sleep [] Unable to be with family [] Patient intubated [] Other: Summary Time inspent with patient 1
--- NOTE | 2021-01-01 10:41 | P.DS_ITS ---
Discharge Providers Date of Admission: 12/31/20 13:50 Date of Discharge: January 01, 2021 Attending Provider at Admission: Chucky Sorto Attending Provider at Discharge: Chucky Sorto Primary Care Provider: ANNA Tellez Diagnoses at Discharge Discharge Diagnosis (1) Acute CVA (cerebrovascular accident): Status: Acute (2) Heavy cigarette smoker: Status: Acute (3) Angina of effort: Status: Acute Reason for Visit Reason for Visit: STROKE ALERT/ R SIDE WEAKNESS Hospital Course Hospital Course Pleasant 60-year-old lady current smoker, smoking 2 packs/day, with history of HTN, who also takes Aleve at home, family history of coronary disease with brother passing away of [place] at age 48-49, having recovered from COVID-19 infection about a month ago, has been intermittently staying with her mother due to his mother's advanced age, while at her mother's house developed right-sided weakness, numbness, difficulty walking, perhaps some mild difficulty speaking w hen she called her on the phone, no visual deficits, was hospitalized after stroke code assessment in ER. Initial NIHSS of 5, but subsequently with rapidly resolving symptoms, with resolution of weakness on right side, numbness, with persistent mild coordination deficit with [id number] on the right side. With noted prior multiple small lacunar CVA in basal ganglia on CT head. CT angiogram head and neck with noted plaque and 50% stenosis in left internal carotid artery. She was additionally assessed by echocardiogram, monitoring hold telemetry. A1c not suggestive of diabetes. Was assessed by PT, OT, ST. Today she continues to improve. Was instructed on home exercise program. She is continued on aspirin, statin. Due to low severity CVA/high risk TIA, for the next 21 days she also is prescribed Plavix as per discussion. She is extensively counseled to quit smoking. Please assist her with this difficult task. She is asked to discontinue NSAIDs due to high risk of cardi ovascular thrombotic complications with these medications. She is asked to continue optimize other risk factors of cardiovascular disease including hypertension with close monitoring, is continued on amlodipine. Please assist her with healthy lifestyle changes. She is set up with 30-day nurse monitoring after discussion with Dr. Palma to assess for any episodes of atrial fibrillation given reports of palpitations. On presentation also noted intermittent chest heaviness with exertion which she states she has been ignoring. Reports her brother of [place] at age 49. With other risk factors she is referred also for additional assessment by stress testing. Needs to optimize risk factors as above. Nitroglycerin as prescribed. Please follow-up results of the stress test with her, consider further assessment/referral to cardiology depending on results and symptoms. On presentation urine tested positive for amphetamine, but this is thought to be possible cross reaction from one of her medications. Physical Exam Narrative: EXAM NARRATIVE: Accompanied by family Const: COMMON NORMALS: no acute distress, patient oriented x3 and alert NUTRITIONAL APPEARANCE: overweight HENMT: COMMON NORMALS: oropharynx normal Neck/C-Spine: COMMON NORMALS: no meningeal signs and no JVD Resp: COMMON NORMALS: normal respiratory effort and clear to auscultation bilaterally AUSCULTATION: clear to auscultation bilaterally Cardio: COMMON NORMALS: no JVD, regular rhythm, S1 normal heart sound present, S2 normal heart sound present and No murmurs present (Cardio) RHYTHM: regular rhythm HEART SOUNDS: S1 normal heart sound present and S2 normal heart sound present GI: COMMON NORMALS: Normal to inspection, nondistended, normoactive bowel sounds present, Soft to palpation and non-tender PALPATION: Yes Soft to palpation Extremity: COMMON NORMALS: no joint enlargement and no pedal edema Neuro: COMMON NORMALS: patient oriented x3 and moves all extremities SENSORIUM/ORIENTATION: Yes alert MENINGEAL SIGNS: Yes no meningeal signs COORDINATION/BALANCE: iwrkyx-[id number] test normal and other (Minimal residul dificulty with right side [id number]) SPEECH: speech normal SENSORY EXAM: Yes Normal double simultaneous stimulation for sensation; No sensory level loss detected MOTOR EXAM: Pronator motor function not present COORDINATION: cmhuvg-ny-[id number] test normal and other (Minimal residul dificulty with right side [id number]) OTHER: Responding and following commands well. No trouble with horizontal tracking. Visual flores full to confrontation. Skin: COMMON NORMALS: no rashes or lesions noted GENERAL SKIN EXAM: no rashes or lesions noted Discharge Data Data Completed and Pending: Completed Studies During Hospitalization Category Date Time Status CT angio headneck * [id number] Stat Cat Scan 12/31/20 11:[address] head wo con* 7 0450 Urgent Cat Scan 12/31/20 Completed XR chest 1V josiah ble [id number] Urgent Exams 12/31/20 12:39 Completed CV. echo complete * [id number] Routine Ultrasound 12/31/20 15:34 Completed Pending at discharge Category Date Time Status Complete Blood Co unt w/Auto AM LABS Lab 01/02/21 04:00 Ordered Complete Blood Co unt w/Auto AM LABS Lab 01/03/21 04:00 Ordered Comprehensive Met abolic Panel AM LA BS Lab 01/02/21 04:00 Ordered Comprehensive Met abolic Panel AM LA BS Lab 01/03/21 04:00 Ordered Labs from last 24 hours 01/01/21 01/01/21 12/31/20 04:59 04:59 17:37 WBC 6.8 RBC 5.19 Hgb 15.5 H Hct 45.9 MCV 88.4 MCH 29.9 MCHC 33.8 RDW 12.6 Plt Count 293 MPV 10.8 H Neut % (Auto) 62.4 Lymph % (Auto) 27.5 [place] % (Auto) 6.3 Eos % (Auto) 2.6 Baso % (Auto) 0.6 Neut # (Auto) 4.25 Lymph # (Auto) 1.9 [place] # (Auto) 0.4 Eos # (Auto) 0.2 Baso # (Auto) 0.0 Nucleated RBC % (a uto) 0 Nucleated RBCs # 0.0 PT INR APTT Sodium 137 Potassium 3.8 Chloride 102 Carbon Dioxide 25 Anion Gap 13.8 BUN 6 Creatinine 0.5 GFR Calculation 126.7 Glucose 103 POC Glucose Estimat Average Gl ucose Hemoglobin A1c Calculated Osmolal ity 282 L Calcium 9.4 Total Bilirubin 0.5 AST 51 H ALT 71 H Alkaline Phosphata se 96 Troponin T Baselin e Troponin T 120 Min [place] Troponin T Troponin T Hi Sens 6Hr 11.17 H Troponin T Hi Sens 6Hr Delta 0.17 Total Protein 6.8 Albumin 4.2 Globulin 2.6 Triglycerides Cholesterol LDL Cholesterol, C alc Total VLDL Cholest nicolas[place] HDL Cholesterol Cholesterol/HDL Ra charli TSH 2.09 Urine Color Urine Appearance Urine pH Ur Specific Gravit y Urine Protein Urine Glucose (UA) Urine Ketones Urine Blood Urine Nitrate Urine Bilirubin Urine Urobilinogen Ur Leukocyte Emy ase Urine Opiates Scre en Ur Barbiturates Sc reen Ur Phencyclidine S crn Ur Amphetamines Sc reen U Benzodiazepines Scrn Urine Cocaine Scre en U Marijuana (THC) Screen 12/31/20 12/31/20 12/31/20 13:06 12:10 12:10 WBC RBC Hgb Hct MCV MCH MCHC RDW Plt Count MPV Neut % (Auto) Lymph % (Auto) [place] % (Auto) Eos % (Auto) Baso % (Auto) Neut # (Auto) Lymph # (Auto) [place] # (Auto) Eos # (Auto) Baso # (Auto) Nucleated RBC % (a uto) Nucleated RBCs # PT INR APTT Sodium Potassium Chloride Carbon Dioxide Anion Gap BUN Creatinine GFR Calculation Glucose POC Glucose Estimat Average Gl ucose Hemoglobin A1c Calculated Osmolal ity Calcium Total Bilirubin AST ALT Alkaline Phosphata se Troponin T Baselin e Troponin T 120 Min [place] 10.41 H Delta Troponin T -0.59 L Troponin T Hi Sens 6Hr Troponin T Hi Sens 6Hr Delta Total Protein Albumin Globulin Triglycerides Cholesterol LDL Cholesterol, C alc Total VLDL Cholest nicolasa HDL Cholesterol Cholesterol/HDL Ra charli TSH Urine Color Yellow Urine Appearance Clear Urine pH 7 Ur Specific Gravit y 1.000 L Urine Protein Neg Urine Glucose (UA) Norm Urine Ketones Negative Urine Blood Neg Urine Nitrate Negative Urine Bilirubin Neg Urine Urobilinogen Norm Ur Leukocyte Emy ase Negative Urine Opiates Scre en Negative Ur Barbiturates Sc reen Negative Ur Phencyclidine S crn Negative Ur Amphetamines Sc reen Positive H U Benzodiazepines Scrn Negative Urine Cocaine Scre en Negative U Marijuana (THC) Screen Negative 12/31/20 12/31/20 12/31/20 11:11 11:06 11:06 WBC RBC Hgb Hct MCV MCH MCHC RDW Plt Count MPV Neut % (Auto) Lymph % (Auto) [place] % (Auto) Eos % (Auto) Baso % (Auto) Neut # (Auto) Lymph # (Auto) [place] # (Auto) Eos # (Auto) Baso # (Auto) Nucleated RBC % (a uto) Nucleated RBCs # PT INR APTT Sodium Potassium Chloride Carbon Dioxide Anion Gap BUN Creatinine GFR Calculation Glucose POC Glucose 138 H Estimat Average Gl ucose 108 Hemoglobin A1c 5.4 Calculated Osmolal ity Calcium Total Bilirubin AST ALT Alkaline Phosphata se Troponin T Baselin e Troponin T 120 Min [place] Troponin T Troponin T Hi Sens 6Hr Troponin T Hi Sens 6Hr Delta Total Protein Albumin Globulin Triglycerides 108 Cholesterol 209 H LDL Cholesterol, C alc 128 Total VLDL Cholest nicolas[place] 22 HDL Cholesterol 59 L Cholesterol/HDL Ra charli 3.54 TSH Urine Color Urine Appearance Urine pH Ur Specific Gravit y Urine Protein Urine Glucose (UA) Urine Ketones Urine Blood Urine Nitrate Urine Bilirubin Urine Urobilinogen Ur Leukocyte Emy ase Urine Opiates Scre en Ur Barbiturates Sc reen Ur Phencyclidine S crn Ur Amphetamines Sc reen U Benzodiazepines Scrn Urine Cocaine Scre en U Marijuana (THC) Screen 12/31/20 12/31/20 12/31/20 11:06 11:06 11:06 WBC RBC Hgb Hct MCV MCH MCHC RDW Plt Count MPV Neut % (Auto) Lymph % (Auto) [place] % (Auto) Eos % (Auto) Baso % (Auto) Neut # (Auto) Lymph # (Auto) [place] # (Auto) Eos # (Auto) Baso # (Auto) Nucleated RBC % (a uto) Nucleated RBCs # PT 12.00 L INR 0.86 APTT 27.6 Sodium 138 Potassium 4.1 Chloride 100 Carbon Dioxide 24 Anion Gap 18.1 BUN 13 Creatinine 0.6 GFR Calculation 102.7 Glucose 130 H POC Glucose Estimat Average Gl ucose Hemoglobin A1c Calculated Osmolal ity 288 Calcium 9.5 Total Bilirubin 0.5 AST 42 H ALT 71 H Alkaline Phosphata se 123 H Troponin T Baselin e 11 H Troponin T 120 Min [place] Troponin T Troponin T Hi Sens 6Hr Troponin T Hi Sens 6Hr Delta Total Protein 6.9 Albumin 4.7 Globulin 2.2 Triglycerides Cholesterol LDL Cholesterol, C alc Total VLDL Cholest [place] HDL Cholesterol Cholesterol/HDL Ra charli TSH Urine Color Urine Appearance Urine pH Ur Specific Gravit y Urine Protein Urine Glucose (UA) Urine Ketones Urine Blood Urine Nitrate Urine Bilirubin Urine Urobilinogen Ur Leukocyte Emy ase Urine Opiates Scre en Ur Barbiturates Sc reen Ur Phencyclidine S crn Ur Amphetamines Sc reen U Benzodiazepines Scrn Urine Cocaine Scre en U Marijuana (THC) Screen 12/31/20 11:06 WBC 7.2 RBC 5.61 H Hgb 16.9 H Hct 49.3 H MCV 87.9 MCH 30.1 MCHC 34.3 RDW 12.8 Plt Count 333 MPV 11.0 H Neut % (Auto) 62.7 Lymph % (Auto) 26.3 [place] % (Auto) 6.5 Eos % (Auto) 2.8 Baso % (Auto) 0.7 Neut # (Auto) 4.52 Lymph # (Auto) 1.9 [place] # (Auto) 0.5 Eos # (Auto) 0.2 Baso # (Auto) 0.1 Nucleated RBC % (a uto) 0 Nucleated RBCs # 0.0 PT INR APTT Sodium Potassium Chloride Carbon Dioxide Anion Gap BUN Creatinine GFR Calculation Glucose POC Glucose Estimat Average Gl ucose Hemoglobin A1c Calculated Osmolal ity Calcium Total Bilirubin AST ALT Alkaline Phosphata se Troponin T Baselin e Troponin T 120 Min [place] Troponin T Troponin T Hi Sens 6Hr Troponin T Hi Sens 6Hr [place] Total Protein Albumin Globulin Triglycerides Cholesterol LDL Cholesterol, C alc Total VLDL Cholest [place] HDL Cholesterol Cholesterol/HDL Ra charli TSH Urine Color Urine Appearance Urine pH Ur Specific Gravit y Urine Protein Urine Glucose (UA) Urine Ketones Urine Blood Urine Nitrate Urine Bilirubin Urine Urobilinogen Ur Leukocyte Emy ase Urine Opiates Scre en Ur Barbiturates Sc reen Ur Phencyclidine S crn Ur Amphetamines Sc reen U Benzodiazepines Scrn Urine Cocaine Scre en U Marijuana (THC) Screen Vitals: Last Vital Signs Temp 97.5 F L 01/01/21 08:00 Pulse 88 01/01/21 08:00 Resp 14 01/01/21 08:00 BP 138/70 01/01/21 08:00 Pulse Ox 98 01/01/21 08:00 Discharge Plan Discharge Patient Disposition: Home Condition: Stable Prescriptions: New atorvastatin 40 mg Tablet 40 mg PO BEDTIME Qty: 90 RF: 0 aspirin 81 mg capsule 81 mg PO DAILY Qty: 90 RF: 0 nitroglycerin 0.4 mg tablet, sublingual 0.4 mg sublingual Q5M PRN (Reason: chest pain) Qty: 20 RF: 0 clopidogrel 75 mg tablet 75 mg PO DAILY 21 Days Qty: 21 RF: 0 Continued amlodipine 5 mg tablet 5 mg PO BEDTIME RF: 0 venlafaxine [Effexor XR] 150 mg capsule,extended release 24hr 150 mg PO BEDTIME RF: 0 Discontinued Aleve 220 mg Tablet 440 mg PO BEDTIME PRN (Reason: Pain) RF: 0 No Action (DME) Night splint See Rx Instructions .ROUTE .MEDSUPPLY Qty: 1 RF: 0 Discharge Orders: Discharge Order (Routine); Ordered 01/01/21 Ordered By: Chucky Sorto Other Ambulatory Orders: Sestamibi Stress Test Request (Routine) Timeframe: 1 Week Facility: [facility] - Location: Cardiac Diagnostic Laboratory Ordered By: Chucky CHRISTIANSON cardiac event monitor (Routine) Timeframe: 1 Day Facility: [facility] - Location: Cardiac Diagnostic Laboratory Ordered By: Chucky Sorto Referrals: Pauly Christine MD [Physician] - 1 week Elza Black FNP [Primary Care Provider] - 4-7 days Discharge Diet: Cardiac Discharge Activity: Increase activity as tolerated and As per PT/OT instructions Patient Instructions: Nitroglycerin (By mouth), Aspirin (By mouth), Atorvastatin (By mouth), Clopidogrel (By mouth), How to Stop Smoking (GEN), Cigarette Smoking and Your Health (GEN), Ischemic Stroke (GEN), Chronic Hypertension (GEN) Activity Restrictions/Additional Instructions: Please stop smoking. Continued smoking exposes you to risk of additional stroke. You have prior strokes noted on CT of the head. Please continue to work closely with your primary doctor to help you quit smoking and optimize other risk factors of cardiovascular disease, including continued optimization of treatment of high blood pressure. Continue cluster medication, have your primary doctor monitor your cholesterol levels. Follow-up with your primary doctor regarding atherosclerotic plaque and 50% narrowing of left internal carotid artery. Please take Plavix only for 21 days in addition to aspirin, then discontinue Plavix and continue aspirin alone unless directed to do otherwise by your neurologist. Please follow-up with neurology in 1 week. Discuss the above and discuss any additional assessments that may be helpful in assessing risks of repeated stroke. Please follow-up with your primary doctor with regards to intermittent chest heaviness feeling. Follow-up with a stress test and discussed the results with your primary doctor. In case you experience the symptoms, take nitroglycerin medication, you may take it every 5 minutes up to 3 doses, but if there is no relief, please call 911. Please do not take any NSAIDs (like Aleve and other) as these may cause serious risks including increased risk of cardiovascular thrombotic events including heart attack and stroke. Discharge Attestations Time Spent in Discharge Care*: greater than 30 min Quality Metrics Clinical Quality Measures During this hospital stay, did patient experience: Stroke Contraindication to Antithrombotic: Antithrombotic prescribed Contraindication to Anticoagulation: Overlap treatment not indicated Contraindication to Statin: Statin prescribed Contraindication to tPA: Treatment not indicated Coding Level of Care Code Acute g [facility] note Diagnoses Acute CVA (cerebrovascular accident) I63.9 Heavy cigarette smoker F17.210 Angina of effort I20.8
--- NOTE | 2021-01-01 12:00 | PC.NURSE ---
IV removed intact. Patient tolerated well. Patient is A&Ox3. Respirations even and non-labored on room air. Reviewed discharge instructions with patient and spouse at this time. Patient verbalized understanding of Stroke education, Follow up appointments and hw to take new medications. Patient was wheel chaired to private car.
[2021-01-01 12:19] VITALS: BP 138/70; PULSE 88; RESP 14; TEMP 36.9; O2SAT 98
--- NOTE | 2021-01-01 12:38 | PC.OT ---
OT EVAL NOT COMPLETED PATIENT WAS DISCHARGED BEFORE EVALUATION COULD BE COMPLETED.
--- NOTE | 2021-01-23 15:30 | PC.SOCIAL ---
spoke with patient and updated her that her stress test would be 12-13 check in time of 0900 with test beginning at 1100, also that centralized scheduling would be mailing all information needed and prep for the test. check writer salesperson's number given to patient for any concerns or if she doesn't receive the information in the mail. pt verbalizes understanding and denies any questions or concerns.
--- NOTE | 2021-01-30 09:49 | PC.SOCIAL ---
pt called scenario writer and didn't receive paperwork in the mail for instructions on willy scan. scenario writer called centralized scheduling for the list of items pt needs to do prior to scan. scenario writer called and went over with patient. pt wrote down list and verbalized understanding.
== END 2021-01-01 12:00 | disposition home or self-care (01) ==
LOC: ER 13:49 → MEDSURG 14:39
PROVIDERS: Admitting Provider Internal Medicine; Emergency Provider Emergency Medicine; PCP Nurse Practitioner Family; Visit Provider Internal Medicine
DX: I63.9 Cerebral infarction, unspecified (principal); R29.702 NIHSS score 2; I20.8 Other forms of angina pectoris; I10 Essential (primary) hypertension; F32.A Depression, unspecified; F17.210 Nicotine dependence, cigarettes, uncomplicated; Z79.1 Long term (current) use of non-steroidal anti-inflammatories (NSAID); Z82.49 Family history of ischemic heart disease and other diseases of the circulatory system
CPT/HCPCS: 36415; 36416; 70450; 70496; 70498; 71045; 80053; 80061; 80306; 81003; 82962; 83036; 84443; 84484; 85025; 85610; 85730; 92523; 92610; 93005; 93306; 96360; 96372; 97161; 99285; G0378; J1644; Q9967

== ENCOUNTER 2021-02-03 08:42 | Outpatient (CLI) | payer OTHER, SELFPAY ==
[2021-02-03 08:59] VITALS: BMI 32.4
--- NOTE | 2021-02-03 09:03 | NMCV_ITS ---
NM nissa perf SPECT r/s* [id number] Lorraine Ramirez Age: 60 Gender: F : 1960 Exam Date: 02/03/2021 09:45 Ordering Phys: Chucky Sorto MD Technologist: RENETTA Browne Exam Location: [facility] Indications: Angina STRESS TEST [facility] IMAGE PROTOCOL Rest/Stress 1 Lexiscan Day Radiopharmaceutical Dose (mCi) Administration Site Administered by Rest: Tc-99m 10.6 IV RENETTA Browne Sestamibi Stress:Tc-99m 32.5 IV RENETTA Browne Sestamibi Rest: 03-Feb-2021 60 Discovery 630 Stress: 03-Feb-2021 45 Discovery 630 0.4mg Lexiscan. Images obtained in supine and prone position. SPECT RESULTS Technical Quality: Good Raw Data Analysis: Normal Image Corrections: No attenuation or motion correction applied Summed Stress Score: 0 Summed Rest Score: 3 Summed Difference Score: 0 PERFUSION FINDINGS Small area of distal inferior reduced tracer uptake noted on the rest images which improved significantly over stress images suggestive of artifact. FUNCTIONAL RESULTS (calculated via Gated SPECT) Stress Image LV EF (%): 77 Stress EDV (mL):69 TID: 1.38 Stress ESV (mL):16 Rest Image LV EF (%): 77 FUNCTIONAL FINDINGS: There is normal left ventricular systolic function. IMPRESSIONS Myocardial perfusion imaging is normal.TID ratio is elevated which could be secondary to left ventricular hypertrophy/subendocardial ischemia. EKG segment will be documented separately. Radha Chahal MD (Electronically Signed) Final Date: 03 February 2021 19:39 S
--- NOTE | 2021-02-03 09:03 | ECG_ITS ---
[facility] Test Date: 2021-02-03 Pat Name: Lorraine Ramirez Department: Room: Gender: Female Technology Strategist: Alisha CullenRaffi : 1960 Requested By: Chucky Sorto Order Number: [id number] Eber MD: Sima Palma M.D. Interpretive Statements NAME OF STUDY: LEXISCAN SESTAMIBI STRESS TEST INDICATION: Chest Pain,/SEND RESULTS TO [facility] ANN PROCEDURE: At the baseline, the EKG revealed normal sinus rhythm with normal ST Ts. the baseline blood pressure was 154/90 mm Hg with a heart rate of 85 beats/min. Lexiscan was infused over a period of 20 seconds. A total of 0.4 milligrams of Lexiscan was infused. The stress phase was continued for a total of 5 minutes. Heart rate at the end of the stress phase was 95 with a blood pressure 151/81. The EKG at the peak infusion revealed no significant changes. Sestamibi was injected 20 seconds after the Lexiscan infusion. Blood pressure at the end of the recovery phase was 157/81 with a heart rate of 95 per minute. CONCLUSION: 1. No significant EKG changes with the LexiScan infusion 2. No LexiScan induced chest pain or cardiac arrhythmia 3. Normal blood pressure and heart rate response 4. Sestamibi/sestamibi perfusion scan pending; see separate report. Electronically Signed On 02-07-2021 1:41:14 PLASTIC FIXTURE BUILDER by Sima Palma M.D. [email or web address]
[2021-02-03] MEDS: regadenoson 0.4 Mg/5 ml Syringe IVP (10:45)
[2021-02-03 10:51] VITALS: BP 157/81; PULSE 94
== END 2021-02-03 08:43 | disposition home or self-care (01) ==
PROVIDERS: PCP Nurse Practitioner Family; Visit Provider Internal Medicine
DX: I20.8 Other forms of angina pectoris (principal); F17.210 Nicotine dependence, cigarettes, uncomplicated; R07.9 Chest pain, unspecified
CPT/HCPCS: 78452; 93017; A9500; J2785

== ENCOUNTER → 2021-02-10 10:34 | Outpatient (BNVA) | payer OTHER, SELFPAY | PROVIDERS: PCP Nurse Practitioner Family; Visit Provider Internal Medicine Cardiovascular Disease | DX: Z01.818 Encounter for other preprocedural examination (principal); R94.39 Abnormal result of other cardiovascular function study; Z20.822 Contact with and (suspected) exposure to COVID-19 | CPT/HCPCS: 80048; 85025; 85610; 86850; 86900; 87635 ==

== ENCOUNTER 2021-02-13 07:38 | Day surgery (SDC) | payer OTHER, SELFPAY ==
[2021-02-13] VITALS (13 sets, daily range): BP systolic 118–160; BP diastolic 71–105; PULSE 76–99; RESP 17–20; TEMP 36.3; O2SAT 91–97
--- NOTE | 2021-02-13 07:30 | XACV_ITS ---
Ht: 165 cm Wt: 90 kg BSA: 2.06 m2 Gender: Female : 1960 Any Known Allergies: No known allergies Exam Priority: Routine Procedure(s): Procedure Description: Diagnostic procedure Procedure Description: Left Heart Catheterization Procedure Description: Left ventriculography Procedure Description: Coronary Angiography Louie CORONADO; Diagnostic Cath Status: Elective Diagnostic Findings * Coronary angiography shows right dominance. * The left main is a medium caliber vessel with no significant stenotic lesions. * The left hand descending artery is a medium caliber vessel which appears to wrap around the LV apex minimally. The mid LAD was found to have around 30 to 40% diffuse tubular narrowing. The distal LAD was found to have minimal intimal irregularities. The diagonal branches were found to be relatedly small caliber vessels with no significant stenotic lesions.. * The circumflex artery is a medium caliber nondominant vessel. It gives off a high obtuse marginal branch(intermedius artery). This vessel was found to have diffuse irregular narrowing of 30 to 40% proximally. No other significant stenotic lesions were noted. * The right coronary artery is a medium caliber dominant vessel which gives of the PDA branch very proximally, right after the sinus napoleon branch. This PDA branch was found to have 40 to 50% diffuse irregular narrowing. No significant stenotic lesions were noted. The PLV branch was found to be relatively large caliber vessel with minimal intimal irregularities. Conclusions 1. This is a 60-year-old white female with history of hypertension, dyslipidemia, carotid artery disease and recent CVA, is presenting with complaints of increasing chest pain and shortness of breath. She had a myocardial perfusion imaging which revealed elevated transient ischemic dilatation ratio. She also has a strong family history of premature atherosclerotic heart disease. In view of the ongoing symptoms, multiple risk factors, in order to further evaluate her coronary status, a cardiac catheterization was recommended. Patient underwent left heart catheterization with left and right coronary angiogram and LV angiogram today. The findings are as follows.. 2. Mild to moderate diffuse coronary artery disease involving all the 3 vessels. Normal LV ejection fraction 55%. Elevated LVEDP of 19 mmHg. Based on the angiographic findings, it was opted to treat her medically. Recommendations * Continue current medical management and risk factor modification. Diagnostic RX Recommendation: medical therapy and/or counseling LV EDP: 19 mmHg Ventriculography Ejection Fraction: 55.0 % Left Ventriculography Findings: * The LV gram was performed in the HARRIS projection. The LV cavity appeared to be normal size. There is no significant mitral valve prolapse or mitral regurgitation. No filling defects were noted. The overall LV ejection fraction was 55%. LVEDP was 19 mmHg prior to the LV angiogram. After the LV angiogram, the LVEDP was found to be 22 mmHg. Pressures Phase:Rest AO : 137 / 77 ( 97 ) @ 6:58:00 AM 160 / 77 ( 115 ) @ 7:14:00 AM 162 / 75 ( 113 ) @ 7:14:00 AM LV : 159 / 7 / 19 @ 7:13:00 AM 153 / -3 / 22 @ 7:14:00 AM 153 / -7 / 20 @ 7:14:00 AM Valves Phase:DefaultPhase AV : 0.0 @ 9:20:09 AM AV Mean Gradient: 0.0 @ 9:20:09 AM Clinical Evaluation EBL: 5mL-10mL Procedural Details Procedure Consent Obtained. Pre-Procedure Time Out. Identified patient by full name and date of as verbalized by the patient/guarantor. Does the consent match the physician's order: Yes. Accurate & Complete Informed Consent: Yes. Inpatient/Outpatient History & Physical on Chart: Yes. If H&P is completed, is and addenduem needed: No; If yes, is the addendum complete: N/A. Visualize and Verify Site with Patient/Guarantor: N/A. Relevant Radiology Images available: N/A. Pre-op teaching completed and patient verbalized understanding. The risks, benefits, and alternatives of sedation and/or procedure were discussed by physician. The patient agrees to continue. Procedure started. [facility] Clinical Fraility Score: 4: Vulnerable. 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 Chest Pain Symptom Assessment: Atypical Angina. Cardiovascular Instability: No. Correct patient, site and procedure confirmed by cath team. PERRLA. Strong, equal hand turning sander tender bilaterally. Lungs clear x 5 lobes. IV Site on Arrival: 18 gauge in the left wrist. IV Fluids: 0.9% NaCl at KVO. 0 mL infused prior to [employer]. Pre Procedural Pulses: bilateral radial was 3+. Oxygen started at 2liters/min via nasal canula. right groin was prepped with chloroprep then draped in the usual sterile fashion. right radial was prepped with chloroprep then draped in the usual sterile fashion. Baseline sample Acquired. HR: 89 BPM. Physician arrived. Equipment: 6F - Radial. Cardiac Cath Pack. ACIST Manifold Kit Model BT 2000. Heparinized Saline (2 units/mL), 1000 mL bag. Physician scrubbed in. Immediate Pre-Procedure Time Out. Correct Patient: Yes; Correct Procedure: Yes; Correct Site: Yes; Correct Patient Position: Yes; Correct Supplies: Yes; Dried Flammable Prep: Yes; Blood Products Available: N/A;. Lidocaine 1% infiltrated to the right radial. Arterial access obtained. A 5 burundian Andrzej catheter in over wire. Multiple views taken of left coronary artery. Catheter redirected to the RCA. Catheter removed over the exchange wire. A 5 burundian JR4 catheter in over wire. Multiple views taken of right coronary artery. Catheter removed over the exchange wire. Called Dr Almonte to come view images. A 5 burundian Angled Pig catheter in over wire. EDP Sample taken: LV 159/7,19; HR: 99 BPM; SpO2: 94%. LV gram performed in HARRIS @ 10 mL/second for a total of 30 mL. EDP Sample taken: LV 153/-4,22; HR: 99 BPM; SpO2: 94%. Pullback taken: LV 153/-7,20; AO 160/77(115); Mean: 0mmHg, Peak to Peak: 0mmHg, SEP: 8sec/min; HR: 99 BPM; SpO2: 92%. Catheter removed over the exchange wire. Physician scrubbed out. A TR Band was successful obtaining hemostatsis at the Right Radial artery insertion site. TR band placed. Hemostasis obtained. Post Procedure: Pulses reassessed and unchanged. PERRLA. Strong, equal hand turning sander tender bilaterally. No VTE prophylaxis required. Contrast type used: Omnipaque 300 mg/mL, 150 mL bottle. Post-op diagnosis: moderate CAD, high EDP. Complications: none. Medication's Wasted: Lidocaine 1% = 18 mL. Medication's Wasted: Nitro = 49.8 mg. Medication's Wasted: Heparin = 1000 units. Total IV fluids: 50 mL. Estimated blood loss: 5mL-10mL. Responsiveness - Normal response to verbal stimuli; alert and oriented, PERRLA. Airway - Unaffected, no intervention required; spontaneous ventilation. Circulation: W/N/L, pulses unchanged. Nausea/Vomiting: No. Procedure completed. Patient transferred by wheelchair to 1st floor. Vital chart was stopped. Access Site Site: Right Radial artery Sheath Size: 6 Fr Hemostasis Method: TR Band Hemostasis Success: Successful Procedure Medications Start: 8:52 AM Stop: 8:52 AM Medication: Versed Amount: 1 mg Route: I.V. Start: 8:52 AM Stop: 8:52 AM Medication: Fentanyl Amount: 50 mcg Route: I.V. Start: 8:55 AM Stop: 8:55 AM Medication: Verapamil Amount: 5 mg Route: I.A. Start: 8:56 AM Stop: 8:56 AM Medication: Nitrogylcerin Amount: 200 mcg Route: I.A. Start: 8:56 AM Stop: 8:56 AM Medication: Zofran (ondansetron) Amount: 4 mg Route: I.V. Start: 9:03 AM Stop: 9:03 AM Medication: Heparin Amount: 5000 units Route: I.V. Start: 9:10 AM Stop: 9:10 AM Medication: Versed Amount: 1 mg Route: I.V. Start: 9:10 AM Stop: 9:10 AM Medication: Fentanyl Amount: 50 mcg Route: I.V. I, the attending physician, have reviewed and verified all procedure medications. Yes, all medications given per verbal order History/Risk Factors Hypertension: Yes Dyslipidemia: Yes Peripheral Arterial Disease (PAD): No Myocardial Infarction (UT): No Obesity: No Renal Disease: No Prior Interventions PCI: No CABG: No Valve Surgery: No Report Signatures Finalized by Dr Sima Palma MD [facility] on 02/13/2021 08:36 PM
--- NOTE | 2021-02-13 08:34 | W.PM.OPSUD ---
Surgery/Procedure H&P Update DATE OF PROCEDURE: February 13, 2021 DATE H&P PERFORMED: 02/06/21 H&P UPDATE INFORMATION: I have reviewed H&P completed within last 30 days, I have examined patient prior to procedure and No changes to prior documentation PREOP DIAGNOSIS: ASHD PRIMARY INDICATION FOR PROCEDURE: Worsening chest pain/ Abnormal MPI PLANNED PROCEDURE: Operation Date: 02/13/21 08:30 Proposed Procedures p Cardiac Catheterization(Left) - Sima Palma MD PATIENT REASSESSED PRIOR TO SEDATION, WITH NO CHANGE NOTED: Yes PHYSICAL EXAM: alert, oriented x 3, clear to auscultation bilaterally and regular rate & rhythm AIRWAY EVAL/ANESTHESIA PLAN: normal airway, see other exam findings, ASA III, Monitored Anesthesia, Local Anesthesia, Risks, benefits & alternatives of sedation and/or procedure discussed and Patient agrees to continue as planned
--- NOTE | 2021-02-13 15:05 | PC.NURSE ---
Pt TR Band removed at approximately 1502. Pt had no swelling hematoma or bleeding noted. Pt tolerated well. Pt had no c/o pain or discomfort at the present time. No needs voiced. Call light in reach.
--- NOTE | 2021-02-13 19:07 | PC.NURSE ---
Pt arrived to room 111-2 from [employer] at approximately 0950. Pt has TR Band on right wrist no swelling hematoma or bleeding noted. Pt arrived with bruise proximal to the TR Band. Pt had no c/o pain or discomfort at the present time. No Needs voiced. Call light in reach. Will cont to monitor.
== END 2021-02-13 18:23 | disposition home or self-care (01) ==
LOC: CCL 07:39 → CSU 10:07
PROVIDERS: PCP Nurse Practitioner Family; Visit Provider Internal Medicine Cardiovascular Disease
DX: I25.10 Atherosclerotic heart disease of native coronary artery without angina pectoris (principal); I10 Essential (primary) hypertension; E78.5 Hyperlipidemia, unspecified; Z86.73 Personal history of transient ischemic attack (TIA), and cerebral infarction without residual deficits
CPT/HCPCS: 93452; C1769; C1887; C1894; J1644; J2250; J2405; J3010; J3490; J7030; Q9967

== ENCOUNTER 2021-06-23 21:09 | Emergency (ER) | payer OTHER, SELFPAY ==
[2021-06-23 21:10] VITALS: BP 180/104; PULSE 84; RESP 24; TEMP 36.7; O2SAT 98; BMI 33.3
--- NOTE | 2021-06-23 21:31 | XRR_ITS ---
PROCEDURE INFORMATION: Exam: XR Chest Exam date and time: 06/23/2021 9:52 PM Age: 61 years old Clinical indication: Chest wall pain; Additional info: Cp TECHNIQUE: Imaging protocol: XR of the chest. Views: 1 view. COMPARISON: CR XR chest 1V portable [id number] 12/31/2020 12:49 PM FINDINGS: Lungs: Unremarkable. No consolidation. Pleural spaces: Unremarkable. No pleural effusion. No pneumothorax. Heart/Mediastinum: Unremarkable. No cardiomegaly. Bones/joints: Unremarkable. XR/XR chest 1V portable [id number] IMPRESSION: No acute findings.
--- NOTE | 2021-06-23 21:32 | ECG_ITS ---
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 Measurements Intervals [place] Rate: 85 P: 56 ID: 153 QRS: 18 QRSD: 78 T: 53 QT: 346 QTc: 412 Interpretive Statements SINUS RHYTHM Compared to ECG 12/31/2020 11:35:22 No significant changes Electronically Signed On 06-24-2021 20:53:01 CDT by Gentry Almonte M.D. [id number]
[2021-06-23] MEDS: aspirin 81 mg Chew Tablet 324 MG PO (22:37)
--- NOTE | 2021-06-23 22:44 | W.ED.CHESTPA ---
HPI - Chest Pain General: Chief Complaint: Chest Pain Stated Complaint: cp Time Seen by Provider: 06/23/21 22:00 Source: patient Mode of arrival: ambulatory Limitations: no limitations History of Present Illness: 61-year-old female who states she been having chest pain over the last day. States its been going up her neck and into her chest been intermittent in nature. States is worse today. Denies any shortness of breath states she took a nitro did help her pain she has a history of stroke no history of heart disease she does have high blood pressure high cholesterol and is a smoker Associated symptoms: Deny abdominal pain, dyspnea, fever(s), nausea or vomiting Review of Systems Const: Denies: fever(s), chills, body aches or change in appetite Eyes: Denies: blurry vision or eye discomfort ENMT: Denies: throat pain or dental pain Card: Reports: chest pain Resp: Denies: dyspnea GI: Denies: abdominal pain, nausea, vomiting or diarrhea : Denies: dysuria Musc: Denies: neck pain or back pain Skin/Breast: Denies: rash Neuro: Denies: headache(s) Psych: Denies: depression Doyle/Lymph: Denies: easy bruising All/Imm: Denies: urticaria PFSH ED PFSH: Medical History CAD (coronary artery disease) Depression Heavy cigarette smoker Hypertension NSAID long-term use Surgical History History of bilateral ligation of fallopian tubes Family History Brother , At 48-49 of [place] CAD (coronary artery disease) at 52 NV Substance abuse Mother CAD (coronary artery disease), Onset Age: 60 Lung disease Father Cancer Hypertension Family/Other Diabetes Denies family history of Clotting disorder Dementia Chronic kidney disease (CKD) Suicide Anesthesia complication Bleeding disorder Stroke Social History Smoking and tobacco status: current every day smoker cigarettes Packs smoked per day: 2 Alcohol intake: current Alcohol intake frequency: holidays/special occasions only Lives independently: Yes Household members: spouse Marital status: Current occupational status: employed 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 Physical Exam Const: COMMON NORMALS: no acute distress, patient oriented x3 and healthy appearing HENMT: COMMON NORMALS: normocephalic and atraumatic HEAD & SCALP: normocephalic and atraumatic Eye: COMMON NORMALS: Equal, round and reactive pupils present and EOMs intact bilaterally PUPIL: Yes Equal, round and reactive pupils present Neck/C-Spine: COMMON NORMALS: full ROM and supple Chest: COMMONS NORMALS: normal inspection of the chest and normal palpation of entire chest wall Resp: COMMON NORMALS: normal respiratory effort, No retractions, No use of accessory muscles and clear to auscultation bilaterally AUSCULTATION: clear to auscultation bilaterally Cardio: COMMON NORMALS: regular rate, regular rhythm and No murmurs present (Cardio) RATE: regular rate RHYTHM: regular rhythm GI: COMMON NORMALS: Normal to inspection, nondistended, normoactive bowel sounds present, Soft to palpation, non-tender and no masses PALPATION: Yes Soft to palpation Extremity: COMMON NORMALS: normal to inspection and full ROM Neuro: COMMON NORMALS: patient oriented x3, moves all extremities and no focal motor deficits Psych: COMMON NORMALS: mental status grossly normal, Normal thought process present and cooperative THOUGHT PROCESS: Normal thought process present Skin: COMMON NORMALS: no rashes or lesions noted and no wounds GENERAL SKIN EXAM: no rashes or lesions noted Course Vital Signs: Vital signs: Vital Signs Temperature 98.0 F 06/23/21 21:10 Pulse Rate 77 06/24/21 01:00 Respiratory Rate 18 06/24/21 01:00 Blood Pressure 148/93 06/24/21 01:00 Pulse Oximetry 98 06/24/21 01:00 [facility] - Chest Pain Medical Decision Making Patient presents here with chest pain she feels improved she did have a cath done earlier this year she would like to go home I feel she is stable for discharge she is to 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 Lab Data : 06/23/21 22:29 06/23/21 22:29 Radiology Impressions Chest X-Ray 06/23/21 21:31 IMPRESSION: No acute findings. Laboratory Results WBC 8.3 10^3/uL (4.0-10.0) 06/23/21 22:29 RBC 5.38 10^6/uL (4.1-5.3) H 06/23/21: Hgb 16.0 g/dL (11.5-15.3) H 06/23/21: Hct 46.7 % (37.0-47.0) 06/23/21: MCV 86.8 fl (81-99) 06/23/21: MCH 29.7 pg (28.0-34.0) 06/23/21: MCHC 34.3 g/dL (30.0-36.0) 06/23/21: RDW 12.6 % (12.1-15.1) 06/23/21 Plt Count 282 10^3/cmm (130-400) 06/23/21 MPV 10.1 fL (7.4-10.4) 06/23/21: Neut % (Auto) 65.0 % 06/23/21: Lymph % (Auto) 24.8 % 06/23/21: Darke % (Auto) 7.0 % 06/23/21: Eos % (Auto) 1.9 % 06/23/21: Baso % (Auto) 0.6 % 06/23/21 Neut # (Auto) 5.38 10^3/uL (1.8-7.7) 06/23/21: Lymph # (Auto) 2.1 10^3/uL (0.8-4.8) 06/23/21 Darke # (Auto) 0.6 10^3/uL (0.2-0.9) 06/23/21 Eos # (Auto) 0.2 10^3/uL (0.0-0.8) 06/23/21 Baso # (Auto) 0.1 10^3/uL (0.0-0.1) 06/23/21 Nucleated RBC % (auto) 0 % 06/23/21 Nucleated RBCs # 0.0 /100WBC 06/23/21 Sodium 136 mmol/L (136-145) 05/02/22 22:29 Potassium 4.1 mmol/L (3.5-5.1) 06/23/21 22: Chloride 101 mmol/L (98-107) 06/23/21 22: Carbon Dioxide 23 mmol/L (22-29) 06/23/21: Anion Gap 16.1 (5-19) 06/23/21 22: BUN 14 mg/dL (6-20) 06/23/21: Creatinine 0.9 mg/dL (0.5-0.9) 06/23/21: GFR Calculation 64.1 mL/min (90-130) L 06/23/21: Glucose 102 mg/dL (65-115) 06/23/21: Calculated Osmolality 283 mOsm/kg (285-295) L 06/23/21: Calcium 9.2 mg/dL (8.5-10.5) 06/23/21: Total Bilirubin 0.3 mg/dL (0.15-1.2) 06/23/21: AST 19 U/L (0-32) 06/23/21: ALT 34 U/L (0-33) H 06/23/21: Alkaline Phosphatase 128 IU/L (35-105) H 06/23/21 22: Troponin T Baseline 10 ng/L (0-10) 06/23/21: Troponin T 120 Minute 9.64 ng/L (0-10) 06/24/21 00:10 Delta Troponin T -0.36 ABS# (0-10) L 06/24/21 00:10 Total Protein 7.0 g/dL (6.6-8.7) 06/23/21: Albumin 4.9 g/dL (3.5-5.2) 06/23/21: Globulin 2.1 g/dL (1.3-4.6) 06/23/21: EKG Data EKG 1: I personally reviewed and interpreted this EKG as follows: EKG interpretation date: 06/23/21 EKG interpretation time: 21:14 Interpretation: nsr hr [address] or t wave abnormalities qrs 78 qtc 388 Discharge Plan Discharge Patient Disposition: Home Clinical Impression: Chest pain Qualifiers: Chest pain type: unspecified Qualified Code(s): R07.9 - Chest pain, unspecified Condition: Stable Prescriptions: No Action folic acid 1 mg tablet PO 0RF cyanocobalamin (vitamin B-12) 1,000 mcg capsule 1,000 mcg PO DAILY 0RF amlodipine 5 mg tablet 5 mg PO BEDTIME 0RF venlafaxine [Effexor XR] 150 mg capsule,extended release 24hr 150 mg PO BEDTIME 0RF (DME) Night splint See Rx Instructions .ROUTE .MEDSUPPLY Qty: 1 0RF Rx Instructions: As directed bupropion HCl 200 mg tablet sustained-release 12 hr 200 mg PO BID 0RF magnesium oxide 200 mg magnesium tablet 400 mg PO DAILY 0RF clopidogrel 75 mg tablet 75 mg PO DAILY 0RF metoprolol tartrate 25 mg tablet 25 mg PO BID 30 Days Qty: 60 5RF aspirin 81 mg capsule 81 mg PO DAILY Qty: 90 0RF atorvastatin 40 mg Tablet 40 mg PO BEDTIME Qty: 90 0RF nitroglycerin 0.4 mg tablet, sublingual 0.4 mg sublingual Q5M PRN (Reason: chest pain) Qty: 20 0RF Rx Instructions: do not exceed 3 doses per episode Discharge Orders: Discharge ED (Routine); Ordered 06/24/21 Ordered By: Bobby Rios Referrals: Elza Black FNP [Primary Care Provider] - Discharge Diet: Advance as tolerated Discharge Activity: Resume usual activity Patient Instructions: Chest Pain (ED) Coding Level of Care Code ED Chassis Mechanic for Maddie Fwjanie Exam Comprehensive
[2021-06-23 22:47] LABS: Basophils # 0.1 10^3/uL (0.0-0.1); Basophils % 0.6 %; Eosinophils # 0.2 10^3/uL (0.0-0.8); Eosinophils % 1.9 %; Hematocrit 46.7 % (37.0-47.0); Lymphocytes # 2.1 10^3/uL (0.8-4.8); Lymphocytes % 24.8 %; Mean Corpuscular HGB Conc 34.3 g/dL (30.0-36.0); Mean Corpuscular Hemoglobin 29.7 pg (28.0-34.0); Mean Corpuscular Volume 86.8 fl (81-99); Mean Platelet Volume 10.1 fL (7.4-10.4); Monocytes # 0.6 10^3/uL (0.2-0.9); Neutrophils # 5.38 10^3/uL (1.8-7.7); Nucleated Red Blood Cells % 0 %; Platelet Count 282 10^3/cmm (130-400); Red Blood Count 5.38 10^6/uL (4.1-5.3); Red Cell Distribution Width 12.6 % (12.1-15.1); White Blood Count 8.3 10^3/uL (4.0-10.0)
[2021-06-23 23:14] LABS: Alanine Aminotransferase 34 U/L (0-33); Albumin Level 4.9 g/dL (3.5-5.2); Alkaline Phosphatase 128 IU/L (35-105); Anion Gap 16.1 (5-19); Aspartate Amino Transferase 19 U/L (0-32); Blood Urea Nitrogen 14 mg/dL (6-20); Calcium 9.2 mg/dL (8.5-10.5); Carbon Dioxide 23 mmol/L (22-29); Chloride 101 mmol/L (98-107); Creatinine Clr Calc Pharmacy 74.8927; Globulin 2.1 g/dL (1.3-4.6); Glomerular Filtration Rate 64.1 mL/min (90-130); Glucose 102 mg/dL (65-115); Osmolality Calculated 283 mOsm/kg (285-295); Potassium 4.1 mmol/L (3.5-5.1); Sodium 136 mmol/L (136-145); Total Bilirubin 0.3 mg/dL (0.15-1.2)
[2021-06-23 23:32] LABS: Troponin(5th) Baseline 10 ng/L (0-10)
--- NOTE | 2021-06-23 23:32 | ECG_ITS ---
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 Measurements Intervals [place] Rate: 73 P: 51 IA: 151 QRS: 18 QRSD: 82 T: 55 QT: 382 QTc: 422 Interpretive Statements SINUS RHYTHM Compared to ECG 06/23/2021 21:14:29 No significant changes Electronically Signed On 06-24-2021 20:56:04 CDT by Gentry Almonte M.D. [id number]
[2021-06-23 23:42] VITALS: BP 167/97; PULSE 76; RESP 16; O2SAT 98
[2021-06-24 00:38] LABS: Troponin 5 2HR 9.64 ng/L (0-10)
[2021-06-24 00:45] VITALS: BP 180/110; PULSE 83; RESP 19; O2SAT 98
[2021-06-24] MEDS: labetalol 5 mg/mL SDV 20mL 10 MG IVP (00:48)
[2021-06-24 01:00] VITALS: BP 148/93; PULSE 77; RESP 18; O2SAT 98
[2021-06-24 01:03] LABS: Troponin 5 2HR Delta -0.36 ABS# (0-10)
== END 2021-06-24 01:12 | disposition home or self-care (01) ==
PROVIDERS: Emergency Provider Emergency Medicine; PCP Nurse Practitioner Family
DX: R07.9 Chest pain, unspecified (principal); F17.210 Nicotine dependence, cigarettes, uncomplicated; Z79.02 Long term (current) use of antithrombotics/antiplatelets
CPT/HCPCS: 71045; 80053; 84484; 85025; 93005; 96374; 99285; J3490

== ENCOUNTER 2021-06-26 16:19 | Outpatient (CLI) | payer OTHER, SELFPAY ==
--- NOTE | 2021-06-26 16:45 | MR_ITS ---
WS: [id number] MRI RIGHT FOOT without CONTRAST. COMPARISON: Radiograph 09/04/2019 History: History of plantar fasciitis and heel pain. Multiplanar, multisequence imaging is performed without contrast. There is a small amount of edema surrounding the plantar fascia at the attachment to the calcaneus. T here is a very small calcaneal spur with adjacent edema. No retraction or full-thickness tear is iden tified. There is some very mild distortion and thickening with displacement of the medial band which may be due to scarring and fibrosis. There is a very small amount of marrow edema involving the plantar surface of the calcaneus. Otherwis e the calcaneus and the talus are negative. No osteochondral lesions at the talus. The Achilles tendo n is normal. Tendons and tendon sheaths are normal. MR/MR foot RT wo con* [id number] IMPRESSION: 1. Mild acute plantar fasciitis. 2. Mild thickening and distortion of the medial band of the plantar fascia sug gesting fibrosis and healing from an old injury. 3. Spurring small calcaneal spur.
== END 2021-06-26 16:20 | disposition home or self-care (01) ==
PROVIDERS: PCP Nurse Practitioner Family; Visit Provider Podiatrist Foot & Ankle Surgery
DX: M72.2 Plantar fascial fibromatosis (principal); M77.31 Calcaneal spur, right foot
CPT/HCPCS: 73718

== ENCOUNTER → 2021-08-26 16:40 | Outpatient (BNVA) | payer OTHER, SELFPAY | PROVIDERS: PCP Nurse Practitioner Family; Visit Provider Podiatrist Foot & Ankle Surgery | DX: L02.91 Cutaneous abscess, unspecified (principal) | CPT/HCPCS: 87070; 87075; 87205 ==

== ENCOUNTER 2021-09-15 21:10 | Inpatient (IN) | payer OTHER, SELFPAY ==
[2021-09-15 21:22] VITALS: BP 135/77; PULSE 127; RESP 17; TEMP 37.2; O2SAT 97; BMI 32.4
[2021-09-15 22:59] LABS: Basophils % 0.2 %; Eosinophils # 0.1 10^3/uL (0.0-0.8); Eosinophils % 0.4 %; Hematocrit 47.8 % (37.0-47.0); Lymphocytes # 0.9 10^3/uL (0.8-4.8); Lymphocytes % 5.2 %; Mean Corpuscular HGB Conc 33.5 g/dL (30.0-36.0); Mean Corpuscular Hemoglobin 29.3 pg (28.0-34.0); Mean Corpuscular Volume 87.5 fl (81-99); Mean Platelet Volume 10.4 fL (7.4-10.4); Monocytes # 0.9 10^3/uL (0.2-0.9); Monocytes % 5.5 %; Neutrophils # 14.85 10^3/uL (1.8-7.7); Neutrophils % 88.2 %; Nucleated Red Blood Cells % 0 %; Platelet Count 277 10^3/cmm (130-400); Red Blood Count 5.46 10^6/uL (4.1-5.3); Red Cell Distribution Width 12.5 % (12.1-15.1); White Blood Count 16.9 10^3/uL (4.0-10.0)
[2021-09-15] MEDS: sodium chloride 0.9% 1,000 ML 999 ML IV (23:00)
--- NOTE | 2021-09-15 23:12 | ED_ITS ---
HPI - General Adult General: Chief complaint: General Medical Stated complaint: Fever/High HR/N/D Time Seen by Provider: 09/15/21 22:36 Source: patient Mode of arrival: ambulatory Limitations: no limitations History of Present Illness: 61-year-old female states that she had a infection after surgery states she has been on multiple rounds of antibiotics she finished her last antibiotic roughly 5 to 6 days ago. States that since then she has developed a yeast infection along with diarrhea. States her diarrhea has been severe over the last 2 days was actually improved slightly tonight. She has had some abdominal cramping denies any worsening improving factors she has had some nausea denies any vomiting. Associated symptoms: Reports rash; Deny chest pain, dyspnea or headache(s) Review of Systems Const: Denies: fever(s), chills, body aches or change in appetite Eyes: Denies: blurry vision or eye discomfort ENMT: Denies: throat pain or dental pain Card: Denies: chest pain Resp: Denies: dyspnea GI: Reports: diarrhea : Denies: dysuria Musc: Denies: neck pain or back pain Skin/Breast: Reports: rash Neuro: Denies: headache(s) Psych: Denies: depression Doyle/Lymph: Denies: easy bruising All/Imm: Denies: urticaria PFSH ED PFSH: Medical History CAD (coronary artery disease) Depression Heavy cigarette smoker Hypertension NSAID long-term use Surgical History History of bilateral ligation of fallopian tubes Family History Brother , At 48-49 of [place] CAD (coronary artery disease) at 52 [place] Substance abuse Mother CAD (coronary artery disease), Onset Age: 60 Lung disease Father Cancer Hypertension Family/Other Diabetes Denies family history of Clotting disorder Dementia Chronic kidney disease (CKD) Suicide Anesthesia complication Bleeding disorder Stroke Social History Smoking and tobacco status: current every day smoker cigarettes Packs smoked per day: 2 Alcohol intake: current Alcohol intake frequency: holidays/special occasions only Lives independently: Yes Household members: spouse Marital status: Current occupational status: employed 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 Physical Exam Const: COMMON NORMALS: no acute distress, patient oriented x3 and healthy appearing HENMT: COMMON NORMALS: normocephalic and atraumatic HEAD & SCALP: normocephalic and atraumatic Eye: COMMON NORMALS: Equal, round and reactive pupils present and EOMs intact bilaterally PUPIL: Yes Equal, round and reactive pupils present Neck/C-Spine: COMMON NORMALS: full ROM and supple Chest: COMMONS NORMALS: normal inspection of the chest and normal palpation of entire chest wall Resp: COMMON NORMALS: normal respiratory effort, No retractions, No use of accessory muscles and clear to auscultation bilaterally AUSCULTATION: clear to auscultation bilaterally Cardio: COMMON NORMALS: regular rate, regular rhythm and No murmurs present (Cardio) RATE: regular rate RHYTHM: regular rhythm GI: COMMON NORMALS: Normal to inspection, nondistended, normoactive bowel sounds present, Soft to palpation, non-tender and no masses PALPATION: Yes Soft to palpation Extremity: COMMON NORMALS: normal to inspection and full ROM Neuro: COMMON NORMALS: patient oriented x3, moves all extremities and no focal motor deficits Psych: COMMON NORMALS: mental status grossly normal, Normal thought process present and cooperative THOUGHT PROCESS: Normal thought process present Skin: COMMON NORMALS: no rashes or lesions noted and no wounds GENERAL SKIN EXAM: no rashes or lesions noted Course Vital Signs: Vital signs: Vital Signs Temperature 98.9 F 09/15/21 21:22 Pulse Rate 127 H 09/15/21 21:22 Respiratory Rate 17 09/15/21 21:22 Blood Pressure 135/77 09/15/21 21:22 Pulse Oximetry 97 09/15/21 21:22 [facility] - General Adult Medical Decision Making Patient presents for diarrhea did test positive for C. difficile she has an elevated white count along some dehydration spoke to hospitalist will admit for observation. Patient given vancomycin p.o. here Lab Data : 09/15/21 22:52 09/15/21 22:52 Laboratory Results WBC 16.9 10^3/uL (4.0-10.0) H 09/15/21 22:52 RBC 5.46 10^6/uL (4.1-5.3) H 09/15/21 22:52 Hgb 16.0 g/dL (11.5-15.3) H 09/15/21 22:52 Hct 47.8 % (37.0-47.0) H 09/15/21 22:52 MCV 87.5 fl (81-99) 09/15/21 22:52 MCH 29.3 pg (28.0-34.0) 09/15/21 22:52 MCHC 33.5 g/dL (30.0-36.0) 09/15/21 22:52 RDW 12.5 % (12.1-15.1) 09/15/21 22:52 Plt Count 277 10^3/cmm (130-400) 09/15/21:52 MPV 10.4 fL (7.4-10.4) 09/15/21 22:52 Neut % (Auto) 88.2 % 09/15/21:52 Lymph % (Auto) 5.2 % 09/15/21 22:52 [place] % (Auto) 5.5 % 09/15/21:52 Eos % (Auto) 0.4 % 09/15/21 22:52 Baso % (Auto) 0.2 % 09/15/21:52 Neut # (Auto) 14.85 10^3/uL (1.8-7.7) H 09/15/21:52 Lymph # (Auto) 0.9 10^3/uL (0.8-4.8) 09/15/21 22:52 [place] # (Auto) 0.9 10^3/uL (0.2-0.9) 09/15/21 22:52 Eos # (Auto) 0.1 10^3/uL (0.0-0.8) 09/15/21 22:52 Baso # (Auto) 0.0 10^3/uL (0.0-0.1) 09/15/21:52 Nucleated RBC % (auto) 0 % 09/15/21: Nucleated RBCs # 0.0 /100WBC 09/15/21:52 Sodium 135 mmol/L (136-145) L 09/15/21 22:52 Potassium 3.8 mmol/L (3.5-5.1) 09/15/21 22:52 Chloride 99 mmol/L (98-107) 09/15/21 22:52 Carbon Dioxide 22 mmol/L (22-29) 09/15/21 22:52 Anion Gap 17.8 (5-19) 09/15/21 22:52 BUN 8 mg/dL (6-20) 09/15/21 22:52 Creatinine 0.7 mg/dL (0.5-0.9) 09/15/21 22:52 GFR Calculation 85.6 mL/min (90-130) L 09/15/21 22:52 Glucose 121 mg/dL (65-115) H 09/15/21 22:52 Calculated Osmolality 280 mOsm/kg (285-295) L 09/15/21 22:52 Calcium 9.9 mg/dL (8.5-10.5) 09/15/21 22:52 Total Bilirubin 1.0 mg/dL (0.15-1.2) 09/15/21 22:52 AST 16 U/L (0-32) 09/15/21 22:52 ALT 30 U/L (0-33) 09/15/21 22:52 Alkaline Phosphatase 119 IU/L (35-105) H 09/15/21 22:52 Total Protein 7.3 g/dL (6.6-8.7) 09/15/21 22:52 Albumin 4.8 g/dL (3.5-5.2) 09/15/21 22:52 Globulin 2.5 g/dL (1.3-4.6) 09/15/21 22:52 Discharge Plan Discharge Patient Disposition: Placed in Observation Admit Provider: Rosie Robledo Clinical Impression: Clostridium difficile colitis Condition: Stable Coding Level of Care Code ED Oracle Reports Developer for Chg Fwd Exam Comprehensive
[2021-09-15 23:25] LABS: Alanine Aminotransferase 30 U/L (0-33); Albumin Level 4.8 g/dL (3.5-5.2); Alkaline Phosphatase 119 IU/L (35-105); Anion Gap 17.8 (5-19); Aspartate Amino Transferase 16 U/L (0-32); Blood Urea Nitrogen 8 mg/dL (6-20); Calcium 9.9 mg/dL (8.5-10.5); Carbon Dioxide 22 mmol/L (22-29); Chloride 99 mmol/L (98-107); Globulin 2.5 g/dL (1.3-4.6); Glomerular Filtration Rate 85.6 mL/min (90-130); Glucose 121 mg/dL (65-115); Osmolality Calculated 280 mOsm/kg (285-295); Potassium 3.8 mmol/L (3.5-5.1); Sodium 135 mmol/L (136-145); Total Protein 7.3 g/dL (6.6-8.7)
[2021-09-16] VITALS (8 sets, daily range): BP systolic 108–130; BP diastolic 52–79; PULSE 65–106; RESP 16–18; TEMP 36.2–37.3; O2SAT 92–97
[2021-09-16] MEDS: fluconazole 100 mg Tablet 150 MG PO (00:22)
--- NOTE | 2021-09-16 00:49 | XRR_ITS ---
PROCEDURE INFORMATION: Exam: XR Abdomen Exam date and time: 09/16/2021 1:00 AM Age: 61 years old Clinical indication: Abdominal pain; Other: Diarrhea TECHNIQUE: Imaging protocol: Radiologic exam of the abdomen. Views: Frontal supine view of the abdomen. 1 View. COMPARISON: CR XR chest 1V portable [id number] 06/23/2021 9:52 PM FINDINGS: Gastrointestinal tract: There is a non-obstructive bowel gas pattern. There is no abnormal dilatation of bowel loops. There is no pneumatosis or mass effect. There is no organomegaly. Intraperitoneal space: No definite free air on the supine view exam. Bones/joints: There are no acute osseous abnormalities noted. Soft tissues: No radiopaque foreign body or abnormal opacity. The exam is limited due to the patient's body habitus. XR/XR KUB [id number] IMPRESSION: Unremarkable radiographic evaluation of the abdomen.
[2021-09-16] MEDS: acetaminophen 325 mg Tablet 650 MG PO (01:15)
--- NOTE | 2021-09-16 03:13 | PC.NURSE ---
Unable to verify/update home med rec at this time. Will need to contact patient's doctor in AM.
--- NOTE | 2021-09-16 04:05 | CTR_ITS ---
PROCEDURE INFORMATION: Exam: CT Abdomen And Pelvis Without Contrast Exam date and time: 09/16/2021 5:27 AM Age: 61 years old Clinical indication: Other: Evaluate for colitis, cdiff +, lower abdominal pain TECHNIQUE: Imaging protocol: Computed tomography of the abdomen and pelvis without contrast. Radiation optimization: All CT scans at this facility use at least one of these dose optimization techniques: automated exposure control; mA and/or kV adjustment per patient size (includes targeted exams where dose is matched to clinical indication); or iterative reconstruction. COMPARISON: CR (ABDOMEN, ) 09/16/2021 1:00 AM RADIATION DOSE METRICS: Total DLP (mGy-cm): 1215.03 FINDINGS: Lungs: The visualized portions of the lung bases are normal. Liver: The non-contrast enhanced liver appears unremarkable. Gallbladder and bile ducts: No calcified stones. No biliary ductal dilatation. Pancreas: The non-contrast enhanced pancreas appears grossly unremarkable. No ductal dilation. Spleen: The non-contrast enhanced spleen appears unremarkable. No splenomegaly. Adrenal glands: Unremarkable non-contrast CT appearance of the adrenals. No definte masses. Kidneys and ureters: No contour deforming masses seen on the non-contrast CT. No calcifications. No hydronephrosis or ureterectasis. Stomach and bowel: The stomach is not well distended, limiting assessment. Small hiatal hernia is seen. The noncontrast opacified small bowel loops appear unremarkable. The noncontrast opacified loops of colon show some scattered descending and sigmoid colonic diverticula, without CT evidence of diverticulitis. There is poor distension of the cecum with mild wall prominence. Mild segmental colitis cannot be excluded. The lack of orally administered contrast material limits assessment. Appendix: No CT evidence of appendicitis. Intraperitoneal space: No free air. No significant fluid collection. There are numerous benign phleboliths in the pelvis. Vasculature: No abdominal aortic aneurysm. Lymph nodes: No enlarged lymph nodes. Urinary bladder: Unremarkable as visualized. Reproductive: Enlarged heterogeneous attenuation uterus is seen. Sonography may be performed for complete assessment to exclude mass. Bones/joints: Bilateral L5 pars interarticularis defects are seen with 4 mm anterolisthesis of L5 on S1. Severe L5-S1 degenerative disc disease changes are seen with associated moderate endplate degenerative changes. Soft tissues: Small umbilical hernia is seen, containing peritoneal fat. Other findings: The PROCEDURE INFORMATION: CT/CT abdomen pelvis wo con [id number] IMPRESSION: 1. Poor distension of the cecum with mild wall prominence. Mild segmental colitis cannot be excluded. Some scattered descending and sigmoid colonic diverticula, without CT evidence of diverticulitis. The lack of orally administered contrast material limits assessment. 2. Small hiatal hernia. 3. Enlarged heterogeneous attenuation uterus seen. Sonography may be performed for complete assessment to exclude mass. 4. Bilateral L5 pars interarticularis defects with 4 mm anterolisthesis of L5 on S1. Severe L5-S1 degenerative disc disease changes are seen with associated moderate endplate degenerative changes.
--- NOTE | 2021-09-16 04:11 | P.HP_ITS ---
Providers/Chief Complaint Admitting Physician: Rosie Robledo MD Primary Care Provider: ANNA Tellez Chief Complaint: Fever/High HR/N/D History of Present Illness Lorraine Ramirez is a 61 year old female who recently had an infected foot wound for which she underwent treatment, and had 2 rounds of antibiotics with Cipro, Augmentin, clindamycin, metronidazole, completed course last week with resolution of her foot wound. She is presenting today with complaints of 10-12 episodes of diarrhea, lower abdominal pain and nausea with poor appetite. Also complains of chills, has not tested fever at home. In the ER found to have leukocytosis, tachycardia, signs of dehydration and stool positive for C. difficile. Review of Systems General: Reports: 10 or more systems reviewed and unremarkable except in HPI and below Const: Denies: fever(s), chills or body aches Eyes: Denies: change in vision, blurry vision or photophobia ENMT: Reports: hoarseness; Denies: throat pain, enlarged tonsils, odynophagia or nasal congestion Card: Denies: chest pain, palpitations, irregular heart rhythm, edema, swelling of feet/ankles, lightheadedness, pre-syncope, dyspnea on exertion or orthopnea Resp: Denies: dyspnea, productive cough, non-productive cough, wheezing, stridor, pain on inspiration, change in phlegm color, hemoptysis or chest congestion GI: Denies: abdominal pain, nausea, vomiting, hematemesis, coffee ground emesi s, dysphagia, heartburn, diarrhea, constipation, GI cramping, change in stool character, hematochezia or melena : Denies: flank pain, difficulty voiding, dysuria, urinary frequency, urinary urgency, urinary hesitancy or hematuria Musc: Denies: neck pain, back pain, extremity pain, joint swelling, joint warmth or deformity Neuro: Denies: headache(s), numbness in extremities, weakness in extremities, sensory changes, difficulty walking, frequent falls, dizziness, vertigo, behavioral changes, Slurred speech present or seizure-like activity Psych: Denies: anxiety, depression, suicidal ideation or homicidal ideation Endo: Denies: polyuria, polydipsia, tired all the time, cold intolerance or hot flashes Doyle/Lymph: Denies: easy bruising or easy bleeding Medications/Allergies Home Medications Medication Instructions Recorded Confirmed Last Taken Type amlodipine 5 mg tablet 5 mg PO BEDTIME 09/04/19 09/09/21 02/12/21 History venlafaxine 150 mg 150 mg PO BEDTIME 09/04/19 09/09/21 12/30/20 History capsule,extended release 24 hr (Effexor XR) Night splint #1 ea 10/01/20 09/09/21 Unknown Rx aspirin 81 mg capsule 81 mg PO DAILY #90 cap 01/01/21 09/09/21 02/12/21 Rx atorvastatin 40 mg tablet 40 mg PO BEDTIME #90 tab 01/01/21 09/09/21 02/12/21 Rx nitroglycerin 0.4 mg sublingual 0.4 mg SUBLINGUAL Q5M PRN #20 tab 01/01/21 Unknown Rx tablet bupropion HCl 200 mg tablet,12 hr 200 mg PO BID tab 02/06/21 09/09/21 02/12/21 History sustained-release clopidogrel 75 mg tablet 75 mg PO DAILY tab 02/06/21 09/09/21 02/12/21 History magnesium oxide 400 mg PO DAILY tab 02/06/21 09/09/21 02/12/21 History metoprolol tartrate 25 mg tablet 25 mg PO BID 30 Days #60 tab 02/06/21 09/09/21 02/12/21 Rx cyanocobalamin (vitamin B-12) 1,000 mcg PO DAILY 05/27/21 09/09/21 Unknown History 1,000 mcg capsule folic acid 1 mg tablet ea PO 05/27/21 09/09/21 Unknown History hydrocodone 10 mg-acetaminophen 1 tab PO Q6H PRN 7 Days #20 tab 07/12/21 09/09/21 Unknown Rx 325 mg tablet amoxicillin 875 mg-potassium 1 tab PO BID 7 Days #14 tab 09/03/21 09/09/21 Unknown Rx clavulanate 125 mg tablet levofloxacin 750 mg tablet 750 mg PO DAILY 7 Days #7 tab 09/03/21 09/09/21 Unknown Rx metronidazole 500 mg tablet 500 mg PO BID 7 Days #14 tab 09/03/21 09/09/21 Unknown Rx fluconazole 150 mg tablet 150 mg PO Q72H 9 Days #3 tab 09/15/21 Unknown Rx Allergies Allergy/AdvReac Type Severity Reaction Status Date / Time No Known Allergies Allergy Verified 09/09/21 15:20 PFSH Acute PFSH: Medical History CAD (coronary artery disease) Depression Heavy cigarette smoker Hypertension NSAID long-term use Surgical History History of bilateral ligation of fallopian tubes Family History Brother , At 48-49 of [place] CAD (coronary artery disease) at 52 [place] Substance abuse Mother CAD (coronary artery disease), Onset Age: 60 Lung disease Father Cancer Hypertension Family/Other Diabetes Denies family history of Clotting disorder Dementia Chronic kidney disease (CKD) Suicide Anesthesia complication Bleeding disorder Stroke Social History Smoking and tobacco status: current every day smoker cigarettes Packs smoked per day: 2 Alcohol intake: current Alcohol intake frequency: holidays/special occasions only Lives independently: Yes Household members: spouse Marital status: Current occupational status: employed 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 Vitals/I&O/Wt Last Vital Signs Temp 98.9 F 09/15/21 21:22 Pulse 106 H 09/16/21 01:48 Resp 16 09/16/21 01:28 BP 124/77 09/16/21 02:47 Pulse Ox 92 09/16/21 01:48 09/15/21 09/15/21 09/16/21 14:59 22:59 06:59 Intake Total 1000 / 1000 Balance 1000 / 1000 Weight last 48 hrs Weight 88.451 kg Physical Exam Narrative: General: No acute distress, AO x3 HEENT: PERRLA, pupils bilaterally equal and reactive, pallors not present Chest: Normal vesicular breath sounds, no added sounds, equal good air entry bilaterally CVS: S1-S2 regular, no murmurs, no tachycardia, no gallops, no rubs Abdomen: Soft, tender to palpation right lower and left lower quadrants no organomegaly, bowel sounds present Neuro: No focal deficits, no facial deformity, AO x3, power 5/5 in all limbs Data : 09/15/21 22:52 09/15/21 22:52 Other Labs: Laboratory Results WBC 16.9 10^3/uL (4.0-10.0) H 09/15/21 22:52 RBC 5.46 10^6/uL (4.1-5.3) H 09/15/21 22:52 Hgb 16.0 g/dL (11.5-15.3) H 09/15/21 22:52 Hct 47.8 % (37.0-47.0) H 09/15/21 22:52 MCV 87.5 fl (81-99) 09/15/21 22:52 MCH 29.3 pg (28.0-34.0) 09/15/21 22:52 MCHC 33.5 g/dL (30.0-36.0) 09/15/21 22:52 RDW 12.5 % (12.1-15.1) 09/15/21 22:52 Plt Count 277 10^3/cmm (130-400) 09/15/21 22:52 MPV 10.4 fL (7.4-10.4) 09/15/21 22:52 Neut % (Auto) 88.2 % 09/15/21 22:52 Lymph % (Auto) 5.2 % 09/15/21 22:52 [place] % (Auto) 5.5 % 09/15/21 22:52 Eos % (Auto) 0.4 % 09/15/21 22:52 Baso % (Auto) 0.2 % 09/15/21:52 Neut # (Auto) 14.85 10^3/uL (1.8-7.7) H 09/15/21 22:52 Lymph # (Auto) 0.9 10^3/uL (0.8-4.8) 09/15/21 22:52 [place] # (Auto) 0.9 10^3/uL (0.2-0.9) 09/15/21 22:52 Eos # (Auto) 0.1 10^3/uL (0.0-0.8) 09/15/21 22:52 Baso # (Auto) 0.0 10^3/uL (0.0-0.1) 09/15/21 22:52 Nucleated RBC % (auto) 0 % 09/15/21:52 Nucleated RBCs # 0.0 /100WBC 07/25/22 22:52 Sodium 135 mmol/L (136-145) L 09/15/21 22:52 Potassium 3.8 mmol/L (3.5-5.1) 09/15/21 22:52 Chloride 99 mmol/L (98-107) 09/15/21 22:52 Carbon Dioxide 22 mmol/L (22-29) 09/15/21 22:52 Anion Gap 17.8 (5-19) 09/15/21 22:52 BUN 8 mg/dL (6-20) 09/15/21 22:52 Creatinine 0.7 mg/dL (0.5-0.9) 09/15/21 22:52 GFR Calculation 85.6 mL/min (90-130) L 09/15/21 22:52 Glucose 121 mg/dL (65-115) H 09/15/21 22:52 Calculated Osmolality 280 mOsm/kg (285-295) L 09/15/21 22:52 Calcium 9.9 mg/dL (8.5-10.5) 09/15/21 22:52 Total Bilirubin 1.0 mg/dL (0.15-1.2) 09/15/21 22:52 AST 16 U/L (0-32) 09/15/21 22:52 ALT 30 U/L (0-33) 09/15/21 22:52 Alkaline Phosphatase 119 IU/L (35-105) H 09/15/21 22:52 Total Protein 7.3 g/dL (6.6-8.7) 09/15/21 22:52 Albumin 4.8 g/dL (3.5-5.2) 09/15/21 22:52 Globulin 2.5 g/dL (1.3-4.6) 09/15/21 22:52 Micro: Microbiology 09/15/21 22:45 C.difficile Toxin B Gene (PCR) - Final Stool Routine Collection A&P Assessment and plan (1) Clostridium difficile colitis: Recent antibiotic use now presenting with diarrhea and stool positive for C. difficile concerning for an C. difficile colitis. Start vancomycin p.o. 125 mg 4 times daily IVF normal saline at 75 cc an hour patient appears to be clinically dehydrated. Foot ulcer is healed over, no further need for antibiotic treatment for the same. Check CT abdomen pelvis given complaints of lower abdominal pain fever chills to a certain extent of colitis. Complains of acute on toilet paper after wiping, suspect this may be related to skin breakdown from multiple episodes of diarrhea, hemoglobin is stable, will monitor closely. Status: Acute Attestations Medical Necessity Statement*: Anticipate greater than 2 midnight admission for management of C. difficile colitis, IV hydration, monitor for GI bleed. Coding Level of Care Code Acute Recovery Engineer for Maddie Cade Diagnoses Clostridium difficile colitis A04.72
[2021-09-16] MEDS: dextrose 5%-sod chloride 0.9% 1,000 ML 75 ML IV ×2 (05:02→17:59)
[2021-09-16] MEDS: ondansetron 2 mg/ML SDV 2 mL 4 MG IVP (08:10)
[2021-09-16] MEDS: metoprolol tartrate 25 mg Tablet PO ×2 (08:40→17:59)
[2021-09-16] MEDS: aspirin 81 mg EC Tablet PO (08:40)
[2021-09-16] MEDS: buPROPion SR (12 HR) 100 mg Tablet 200 MG PO ×2 (08:40→17:58)
[2021-09-16] MEDS: pantoprazole DR 40 mg Tablet PO (08:41)
[2021-09-16] MEDS: clopidogrel 75 mg Tablet PO (08:41)
--- NOTE | 2021-09-16 10:36 | PC.CHAP ---
Pastoral Care Encounter/Spiritual Assessment Type of Contact [] Declined all around patternmaker visit [] Patient/Family/Request visit [] Outpatient visit [] Follow-up visit [] Physician referral [] Code/Alert [x] Routine visit [] Staff referral [] Actively dying [] Patient sleeping [] Family support [] [] Out of room [] Palliative care [] [] Receiving care in room [] Pre-surgical visit [] Trauma [] Long length of stay [] ICU visit [x] Other: covid Relational/Emotional Strength [] Patient feels connected with others/family/visitors/staff [] Distress [] Loneliness/isolation [] Abandonment Spirituality of Patient [] Person of Ina [] Attends Alevism of their Ina [] Believes in Prayer [] Reads Bible or Congregational materials [] There are Spiritual issues to be addressed Art Class Model Interventions [] Prayer [] Active listening [] Non-anxious presence [] Spiritual/emotional support [] Crisis/trauma care [] Spiritual counseling [] Bereavement support [] Provided bereavement packet [] Provided Bible/devotional materials [] Provided toy/stuffed animal, coloring book to patient or family member [] Provided Communion [] Anointing/[place] [] Salvation [x] Completed spiritual assessment [] Other: Impact on Illness or Injury [] Angry [] Fearful [] Anxious [] Often cries [] Exhaustion [] Unable to work [] Unable to attend scientology [] Unable to walk/stand [] Unable to read [] Unable to drive [] Unable to eat/drink [] Unable to sleep [] Unable to be with family [] Patient intubated [] Other: Summary Time spent with patient
--- NOTE | 2021-09-16 16:24 | P.PN_ITS ---
Subjective Subjective: Patient was seen this morning she tells me that she feels better, but continues to have diarrhea, some abdominal pain, but overall improved Vitals/I&O/Wt Last Vital Signs Temp 97.5 F L 09/16/21 12:00 Pulse 83 09/16/21 12:00 Resp 16 09/16/21 12:00 BP 114/57 09/16/21 12:00 Pulse Ox 95 09/16/21 12:00 09/16/21 09/16/21 09/16/21 06:59 14:59 22:59 Intake Total 1000 / 1000 240 / 240 Balance 1000 / 1000 240 / 240 Weight last 48 hrs Weight 88.451 kg Physical Exam Const: COMMON NORMALS: no acute distress and patient oriented x3 Neck/C-Spine: COMMON NORMALS: no JVD Resp: COMMON NORMALS: normal respiratory effort, No retractions, No use of accessory muscles and clear to auscultation bilaterally AUSCULTATION: clear to auscultation bilaterally Cardio: COMMON NORMALS: no JVD, regular rate, regular rhythm, S1 normal heart sound present and S2 normal heart sound present RATE: regular rate RHYTHM: regular rhythm HEART SOUNDS: S1 normal heart sound present and S2 normal heart sound present GI: COMMON NORMALS: Normal to inspection, nondistended, normoactive bowel soun ds present, Soft to palpation, non-tender and no bruits PALPATION: Yes Soft to palpation Extremity: COMMON NORMALS: no pedal edema Neuro: COMMON NORMALS: patient oriented x3 Psych: COMMON NORMALS: mental status grossly normal Data : 09/15/21 22:52 09/15/21 22:52 Micro: Microbiology 09/15/21 22:45 Enteric Pathogens (PCR) - Final Stool Routine Collection C.difficile Toxin B Gene (PCR) - Final A&P Assessment and plan (1) Clostridium difficile colitis: Recent antibiotic use now presenting with diarrhea and stool positive for C. difficile concerning for an C. difficile colitis. Start vancomycin p.o. 125 mg 4 times daily IVF normal saline at 75 cc an hour patient appears to be clinically dehydrated. Foot ulcer is healed over, no further need for antibiotic treatment for the same. Check CT abdomen pelvis given complaints of lower abdominal pain fever chills to a certain extent of colitis. 1. Poor distension of the cecum with mild wall prominence. Mild segmental colitis cannot be excluded. Some scattered descending and sigmoid colonic diverticula, without CT evidence of diverticulitis. The lack of orally administered contrast material limits assessment. 2. Small hiatal hernia. 3. Enlarged heterogeneous attenuation uterus seen. Sonography may be performed for complete assessment to exclude mass. 4. Bilateral L5 pars interarticularis defects with 4 mm anterolisthesis of L5 on S1. Severe L5-S1 degenerative disc disease changes are seen with associated moderate endplate degenerative changes. For uterine density, enlargement, needs to follow-up with gynecology Complains of acute on toilet paper after wiping, suspect this may be related to skin breakdown from multiple episodes of diarrhea, hemoglobin is stable, will monitor closely. Status: Acute Attestations Medical Necessity Statement*: Patient requires hospitalization for C. difficile colitis Coding Level of Care Code Acute Gas Charger for Maddie Cade Diagnoses Clostridium difficile colitis A04.72
--- NOTE | 2021-09-16 19:02 | PC.NURSE ---
Bedside Report given to Wilma Henriquez at this time.
[2021-09-16] MEDS: amlodipine 5 mg Tablet PO (19:37)
[2021-09-16] MEDS: atorvastatin 40 mg Tablet PO (19:37)
[2021-09-16] MEDS: venlafaxine ER (24HR) 150 mg Capsule PO (19:37)
[2021-09-17] VITALS: BP 103/62; PULSE 76; RESP 16; TEMP 36.9; O2SAT 96
[2021-09-17 04:00] VITALS: BP 117/71; PULSE 68; RESP 16; TEMP 36.2; O2SAT 94
[2021-09-17] MEDS: dextrose 5%-sod chloride 0.9% 1,000 ML 75 ML IV (05:29)
--- NOTE | 2021-09-17 07:10 | PC.NURSE ---
Report received from ALINA Richards.
[2021-09-17 08:00] VITALS: BP 125/74; PULSE 74; RESP 15; TEMP 36.7; O2SAT 94
[2021-09-17] MEDS: clopidogrel 75 mg Tablet PO (08:23)
[2021-09-17] MEDS: pantoprazole DR 40 mg Tablet PO (08:23)
[2021-09-17] MEDS: aspirin 81 mg EC Tablet PO (08:23)
[2021-09-17] MEDS: buPROPion SR (12 HR) 100 mg Tablet 200 MG PO (08:24)
[2021-09-17] MEDS: metoprolol tartrate 25 mg Tablet PO (08:29)
[2021-09-17 08:56] LABS: Basophils % 0.6 %; Eosinophils # 0.1 10^3/uL (0.0-0.8); Eosinophils % 1.8 %; Hematocrit 42.3 % (37.0-47.0); Hemoglobin 13.3 g/dL (11.5-15.3); Lymphocytes # 1.6 10^3/uL (0.8-4.8); Lymphocytes % 21.8 %; Mean Corpuscular HGB Conc 31.4 g/dL (30.0-36.0); Mean Corpuscular Hemoglobin 29.3 pg (28.0-34.0); Mean Corpuscular Volume 93.2 fl (81-99); Mean Platelet Volume 10.4 fL (7.4-10.4); Monocytes # 0.5 10^3/uL (0.2-0.9); Monocytes % 6.7 %; Neutrophils # 4.94 10^3/uL (1.8-7.7); Neutrophils % 68.4 %; Nucleated Red Blood Cells % 0 %; Platelet Count 225 10^3/cmm (130-400); Red Blood Count 4.54 10^6/uL (4.1-5.3); Red Cell Distribution Width 12.7 % (12.1-15.1); White Blood Count 7.2 10^3/uL (4.0-10.0)
[2021-09-17 09:21] LABS: Alanine Aminotransferase 25 U/L (0-33); Albumin Level 3.6 g/dL (3.5-5.2); Alkaline Phosphatase 81 IU/L (35-105); Anion Gap 15.7 (5-19); Aspartate Amino Transferase 25 U/L (0-32); Blood Urea Nitrogen 3 mg/dL (6-20); Calcium 8.8 mg/dL (8.5-10.5); Carbon Dioxide 21 mmol/L (22-29); Chloride 106 mmol/L (98-107); Globulin 2.5 g/dL (1.3-4.6); Glomerular Filtration Rate 85.6 mL/min (90-130); Glucose 131 mg/dL (65-115); Osmolality Calculated 286 mOsm/kg (285-295); Potassium 3.7 mmol/L (3.5-5.1); Sodium 139 mmol/L (136-145); Total Bilirubin 0.4 mg/dL (0.15-1.2); Total Protein 6.1 g/dL (6.6-8.7)
[2021-09-17 11:56] VITALS: BP 115/69; PULSE 72; RESP 15; TEMP 36.6; O2SAT 96
--- NOTE | 2021-09-17 12:22 | PM.DCS ---
Discharge Providers Date of Admission: 09/16/21 07:38 Date of Discharge: September 17, 2021 Attending Provider at Admission: Rosie Robledo MD Attending Provider at Discharge: Silas Cannon MD Primary Care Provider: ANNA Tellez Diagnoses at Discharge Discharge Diagnosis (1) Clostridium difficile colitis: Status: Acute Reason for Visit Reason for Visit: Fever/High HR/N/D Hospital Course Hospital Course This is a 61-year-old female who was recently on antibiotics for infected wound, who presents to [facility] for diarrhea Patient was admitted to [facility] for C. difficile colitis, received IV fluids, p.o. vancomycin, CT scan showed mild colitis, patient clinically improved. Discharged with instructions to slowly advance diet, continue p.o. hydration, and oral vancomycin Patient was found to have a enlarged heterogeneous attenuation uterus, needs to follow-up with gynecology as outpatient Physical Exam Const: COMMON NORMALS: no acute distress and patient oriented x3 Resp: COMMON NORMALS: normal respiratory effort, No retractions, No use of accessory muscles and clear to auscultation bilaterally AUSCULTATION: clear to auscultation bilaterally Cardio: COMMON NORMALS: regular rate, regular rhythm, S1 normal heart sound present and S2 normal heart sound present RATE: regular rate RHYTHM: regular rhythm HEART SOUNDS: S1 normal heart sound present and S2 normal heart sound present GI: COMMON NORMALS: Normal to inspection, nondistended, normoactive bowel sounds present, Soft to palpation and non-tender PALPATION: Yes Soft to palpation Extremity: COMMON NORMALS: no pedal edema Neuro: COMMON NORMALS: patient oriented x3 Psych: COMMON NORMALS: mental status grossly normal Discharge Data Studies Completed and Pending Completed Studies During Hospitalization Category Date Time Status CT abdomen pelvis con [id number] Routine Cat Scan 09/16/21 04:05 Completed XR KUB [id number] Stat Exams 09/16/21 00:49 Completed Radiology Impressions KUB X-Ray 09/16/21 00:49 IMPRESSION: Unremarkable radiographic evaluation of the abdomen. Abdomen/Pelvis CT 09/16/21 04:05 IMPRESSION: 1. Poor distension of the cecum with mild wall prominence. Mild segmental colitis cannot be excluded. Some scattered descending and sigmoid colonic diverticula, without CT evidence of diverticulitis. The lack of orally administered contrast material limits assessment. 2. Small hiatal hernia. 3. Enlarged heterogeneous attenuation uterus seen. Sonography may be performed for complete assessment to exclude mass. 4. Bilateral L5 pars interarticularis defects with 4 mm anterolisthesis of L5 on S1. Severe L5-S1 degenerative disc disease changes are seen with associated moderate endplate degenerative changes. Laboratory Results WBC 7.2 10^3/uL (4.0-10.0) 09/17/21 08:34 RBC 4.54 10^6/uL (4.1-5.3) 09/17/21 08:34 Hgb 13.3 g/dL (11.5-15.3) 09/17/21 08:34 Hct 42.3 % (37.0-47.0) 09/17/21 08:34 MCV 93.2 fl (81-99) 09/17/21 08:34 MCH 29.3 pg (28.0-34.0) 09/17/21 08:34 MCHC 31.4 g/dL (30.0-36.0) 09/17/21 08:34 RDW 12.7 % (12.1-15.1) 09/17/21 08:34 Plt Count 225 10^3/cmm (130-400) 09/17/21 08:34 MPV 10.4 fL (7.4-10.4) 09/17/21 08:34 Neut % (Auto) 68.4 % 09/17/21 08:34 Lymph % (Auto) 21.8 % 09/17/21 08:34 [place] % (Auto) 6.7 % 09/17/21 08:34 Eos % (Auto) 1.8 % 09/17/21 08:34 Baso % (Auto) 0.6 % 09/17/21 08:34 Neut # (Auto) 4.94 10^3/uL (1.8-7.7) 09/17/21 08:34 Lymph # (Auto) 1.6 10^3/uL (0.8-4.8) 09/17/21 08:34 [place] # (Auto) 0.5 10^3/uL (0.2-0.9) 09/17/21 08:34 Eos # (Auto) 0.1 10^3/uL (0.0-0.8) 09/17/21 08:34 Baso # (Auto) 0.0 10^3/uL (0.0-0.1) 09/17/21 08:34 Nucleated RBC % (auto) 0 % 09/17/21 08:34 Nucleated RBCs # 0.0 /100WBC 09/17/21 08:34 Sodium 139 mmol/L (136-145) 09/17/21 08:34 Potassium 3.7 mmol/L (3.5-5.1) 09/17/21 08:34 Chloride 106 mmol/L (98-107) 09/17/21 08:34 Carbon Dioxide 21 mmol/L (22-29) L 09/17/21 08:34 Anion Gap 15.7 (5-19) 09/17/21 08:34 BUN 3 mg/dL (6-20) L 09/17/21 08:34 Creatinine 0.7 mg/dL (0.5-0.9) 09/17/21 08:34 GFR Calculation 85.6 mL/min (90-130) L 09/17/21 08:34 Glucose 131 mg/dL (65-115) H 09/17/21 08:34 Calculated Osmolality 286 mOsm/kg (285-295) 09/17/21 08:34 Calcium 8.8 mg/dL (8.5-10.5) 09/17/21 08:34 Total Bilirubin 0.4 mg/dL (0.15-1.2) 09/17/21 08:34 AST 25 U/L (0-32) 09/17/21 08:34 ALT 25 U/L (0-33) 09/17/21 08:34 Alkaline Phosphatase 81 IU/L (35-105) 09/17/21 08:34 Total Protein 6.1 g/dL (6.6-8.7) L 09/17/21 08:34 Albumin 3.6 g/dL (3.5-5.2) 09/17/21 08:34 Globulin 2.5 g/dL (1.3-4.6) 09/17/21 08:34 Vitals Last Vital Signs Temp 97.9 F 09/17/21 11:56 Pulse 72 09/17/21 11:56 Resp 15 09/17/21 11:56 BP 115/69 09/17/21 11:56 Pulse Ox 96 09/17/21 11:56 O2 Del Method 09/17/21 11:56 Discharge Plan Discharge Patient Disposition: Home Condition: Stable Prescriptions: New vancomycin 125 mg capsule 125 mg PO Q6H 9 Days Qty: 36 0RF Continued folic acid 1 mg tablet 1 mg PO DAILY cyanocobalamin (vitamin B-12) 1,000 mcg capsule 1,000 mcg PO DAILY amlodipine 5 mg tablet 5 mg PO BEDTIME venlafaxine [Effexor XR] 150 mg capsule,extended release 24hr 150 mg PO BEDTIME (DME) Night splint See Rx Instructions .ROUTE .MEDSUPPLY Qty: 1 0RF Rx Instructions: As directed bupropion HCl 200 mg tablet sustained-release 12 hr 200 mg PO BID magnesium oxide 200 mg magnesium tablet 400 mg PO DAILY clopidogrel 75 mg tablet 75 mg PO DAILY metoprolol tartrate 25 mg tablet 25 mg PO BID 30 Days Qty: 60 5RF aspirin 81 mg capsule 81 mg PO DAILY Qty: 90 0RF atorvastatin 40 mg Tablet 40 mg PO BEDTIME Qty: 90 0RF nitroglycerin 0.4 mg tablet, sublingual 0.4 mg sublingual Q5M PRN (Reason: chest pain) Qty: 20 0RF Rx Instructions: do not exceed 3 doses per episode Discharge Orders: Discharge Order (Routine); Ordered 09/17/21 Ordered By: Silas Cannon Referrals: Elza Black FNP [Primary Care Provider] - Discharge Diet: Clear Liquid Discharge Activity: Resume usual activity Patient Instructions: Opioid Safety Activity Restrictions/Additional Instructions: - Please slowly advance diet -Please disinfect all surfaces for C. difficile colitis -Take antibiotics as prescribed -Follow-up with primary care provider in 1 week Discharge Attestations Time Spent in Discharge Care*: less than 30 min Quality Metrics Clinical Quality Measures [ No reported AMI, CVA or VTE this stay] Coding Level of Care Code Acute Chg FW DC note Diagnoses Clostridium difficile colitis A04.72
== END 2021-09-17 14:01 | disposition home or self-care (01) | DRG 373 ==
LOC: ER 23:12 → MEDSURG 09-16 01:33
PROVIDERS: Admitting Provider Student in an Organized Health Care Education/Training Program; Emergency Provider Emergency Medicine; PCP Nurse Practitioner Family; Visit Provider Family Medicine
DX: A04.72 Enterocolitis due to Clostridium difficile, not specified as recurrent (principal); E86.0 Dehydration; I25.10 Atherosclerotic heart disease of native coronary artery without angina pectoris; F32.A Depression, unspecified; F17.210 Nicotine dependence, cigarettes, uncomplicated; I10 Essential (primary) hypertension; Z79.1 Long term (current) use of non-steroidal anti-inflammatories (NSAID); Z79.82 Long term (current) use of aspirin; N85.2 Hypertrophy of uterus
CPT/HCPCS: 74018; 74176; 80053; 85025; 87493; 87506; 99285; J2405; J3370; J7030

== ENCOUNTER → 2021-10-09 11:08 | Outpatient (BNVA) | payer OTHER, SELFPAY | PROVIDERS: PCP Nurse Practitioner Family; Visit Provider Nurse Practitioner Women's Health | DX: N90.89 Other specified noninflammatory disorders of vulva and perineum (principal) | CPT/HCPCS: 88305 ==

== ENCOUNTER → 2021-10-13 10:45 | Outpatient (BNVA) | payer OTHER, SELFPAY | PROVIDERS: PCP Nurse Practitioner Family; Visit Provider Nurse Practitioner Women's Health | DX: N85.9 Noninflammatory disorder of uterus, unspecified (principal) | CPT/HCPCS: 76830 ==

== ENCOUNTER → 2022-01-19 15:53 | Outpatient (BNVA) | payer OTHER, SELFPAY | PROVIDERS: PCP Nurse Practitioner Family; Visit Provider Obstetrics & Gynecology | DX: N85.9 Noninflammatory disorder of uterus, unspecified (principal) | CPT/HCPCS: 76830 ==

== ENCOUNTER 2022-02-03 10:58 | Inpatient (IN) | payer OTHER, SELFPAY ==
[2022-02-02 13:21] VITALS: BMI 33.3
--- NOTE | 2022-02-02 13:50 | ANES.PREANE2 ---
Pre-Anesthetic Assessment Height/Weight: Height 1.65 m Weight 90.718 kg Preop Diagnosis: ASHD Operation Date: 02/03/22 08:10 Proposed Procedures p Total abdominal hysterectomy, bilateral salpingo-oophorectomy 08287,R19.00(Not Applicable) - Celeste Lyle MD s Salpingo-Oophorectomy (Vaginal)(Bilateral) - Celeste Lyle MD Familial anesthetic complications: NOne Social Tobacco and No alcohol Exam alert, oriented x 3, clear to auscultation bilaterally and regular rate & rhythm Airway Mallampati: Class III Dentition: full Pulmonary None reported CV/HEM Coronary Artery Disease and Hypertension Neuropsych Cerebrovascular Accident (last year - residual memory deficits and some issues with balance) Anesthetic Plan ASA status: 3 Anesthesia: General Risk of > 500 ml blood loss (7ml/kg in children): No Medications/Allergies Home Medications Medication Instructions Recorded Confirmed Last Taken Type amlodipine 5 mg tablet 5 mg PO BEDTIME 09/04/19 02/02/22 02/02/22 10:00 History venlafaxine 150 mg 150 mg PO BEDTIME rx last filled 09/04/19 02/02/22 02/02/22 10:00 History capsule,extended release 24 hr 11/14/20 30d/s (Effexor XR) Night splint #1 ea 10/01/20 01/29/22 Unknown Rx aspirin 81 mg capsule 81 mg PO DAILY #90 caps 01/01/21 02/02/22 01/29/22 Rx atorvastatin 40 mg tablet 40 mg PO BEDTIME #90 tabs 01/01/21 02/02/22 02/02/22 10:00 Rx nitroglycerin 0.4 mg sublingual 0.4 mg sublingual Q5M PRN chest 01/01/21 02/02/22 Unknown Rx tablet pain #20 tabs bupropion HCl 200 mg tablet,12 hr 200 mg PO BID 02/06/21 02/02/22 02/12/21 History sustained-release clopidogrel 75 mg tablet 75 mg PO DAILY 02/06/21 02/02/22 01/29/22 History magnesium oxide 400 mg PO DAILY 02/06/21 02/02/22 02/02/22 10:00 History cyanocobalamin (vitamin B-12) 1,000 mcg PO DAILY 04/07/1302/02/22 02/02/22 10:00 History 1,000 mcg capsule folic acid 1 mg tablet 1 mg PO DAILY 05/27/21 02/02/22 02/02/22 10:00 History clobetasol 0.05 % topical ointment 1 applic topical BID #45 grams 10/23/21 02/02/22 Unknown Rx metoprolol tartrate 25 mg tablet 25 mg PO BID #180 tabs 11/24/21 02/02/22 02/02/22 10:00 Rx Allergies Allergy/AdvReac Type Severity Reaction Status Date / Time No Known Allergies Allergy Verified 02/02/22 13:17 PFS Anesthesia Medical History CAD (coronary artery disease) Depression Heavy cigarette smoker Hypertension Insomnia No pertinent past medical history neghx: dm,thyroid,dvt/pe PCP: Elza Black Non-pressure chronic ulcer of right heel and midfoot with fat layer exposed NSAID long-term use Stroke (~12/2020) Managed on Plavix; some memory loss 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
[2022-02-02 13:52] LABS: Basophils % 0.5 %; Eosinophils # 0.1 10^3/uL (0.0-0.8); Eosinophils % 1.2 %; Hematocrit 44.9 % (37.0-47.0); Hemoglobin 15.3 g/dL (11.5-15.3); Lymphocytes # 1.7 10^3/uL (0.8-4.8); Lymphocytes % 19.6 %; Mean Corpuscular HGB Conc 34.1 g/dL (30.0-36.0); Mean Corpuscular Hemoglobin 29.4 pg (28.0-34.0); Mean Corpuscular Volume 86.2 fl (81-99); Mean Platelet Volume 10.1 fL (7.4-10.4); Monocytes # 0.5 10^3/uL (0.2-0.9); Monocytes % 5.7 %; Neutrophils % 72.3 %; Nucleated Red Blood Cells % 0 %; Platelet Count 266 10^3/cmm (130-400); Red Blood Count 5.21 10^6/uL (4.1-5.3); Red Cell Distribution Width 12.9 % (12.1-15.1); White Blood Count 8.6 10^3/uL (4.0-10.0)
[2022-02-02 14:08] LABS: Anion Gap 16.8 (5-19); Blood Urea Nitrogen 10 mg/dL (6-20); Calcium 9.8 mg/dL (8.5-10.5); Carbon Dioxide 22 mmol/L (22-29); Chloride 100 mmol/L (98-107); Glomerular Filtration Rate 85.6 mL/min (90-130); Glucose 156 mg/dL (65-115); Osmolality Calculated 282 mOsm/kg (285-295); Potassium 3.8 mmol/L (3.5-5.1); Sodium 135 mmol/L (136-145)
[2022-02-03] VITALS (24 sets, daily range): BP systolic 103–170; BP diastolic 73–109; PULSE 76–108; RESP 12–23; TEMP 36.1–37.2; O2SAT 89–97
[2022-02-03] MEDS: CELEcoxib 200 mg Capsule 400 MG PO (07:10)
[2022-02-03] MEDS: acetaminophen 1,000 MG/100 ML PIGGYBACK 400 MG IV (07:10)
[2022-02-03] MEDS: sodium chloride 0.9% 1,000 ML 30 ML IV (07:10)
[2022-02-03] MEDS: scopolamine 1.5 Patch 1 PATCH TRANSDERMA (07:11)
[2022-02-03] MEDS: gabapentin 300 mg Capsule PO (07:11)
[2022-02-03] MEDS: phenazopyridine 100 mg Tablet 200 MG PO ×3 (07:11→21:08)
--- NOTE | 2022-02-03 07:11 | P.ANESUD_ITS ---
Pre-Anesthetic Update Pre-Anesthetic Assessment: Date of Surgery/Procedure: 02/03/22 Preop Elenita gnosis: pelvic mass Proposed Procedure: Operation Date: 02/03/22 08:10 Proposed Procedures p Total abdominal hysterectomy, bilateral salpingo-oophorectomy 93678,R19.00(Not Applicable) - Celeste Lyle MD s Salpingo-Oophorectomy (Vaginal)(Bilateral) - Celeste Lyle MD Any changes to Pre-Anesthetic Assessment?: No Last Intake: Intake Last Liquid Date 02/02/22 Last Liquid Time 22:00 Last Solid Date 02/02/22 Last Solid Time 22:00 Labs Last 48hrs: Short CBC 02/02/22 Range/Units 13:35 WBC 8.6 (4.0-10.0) 10^3/ uL Hgb 15.3 (11.5-15.3) g/dL Hct 44.9 (37.0-47.0) % MCV 86.2 (81-99) fl Plt Count 266 (130-400) 10^3/c mm Neut % (Auto) 72.3 % Neut # (Auto) 6.20 (1.8-7.7) 10^3/u L BMP 02/02/22 13:35 Sodium 135 L Potassium 3.8 Chloride 100 Carbon Dioxide 22 BUN 10 Creatinine 0.7 Glucose 156 H Calcium 9.8 Blood Bank 02/02/22 13:35 Blood Type O Positive Rho(D) Type Positive Antibody Screen Negative Vitals: Temperature 97.0 F L 02/03/22 06:44 Temperature Source Temporal Artery S can 02/03/22 06:44 Pulse Rate 76 02/03/22 06:44 Respiratory Rate 17 02/03/22 06:44 Blood Pressure 170/102 02/03/22 06:44 Blood Pressure Cheryle n 124 02/03/22 06:44 Pulse Oximetry 97 02/03/22 06:44 Oxygen Delivery Me thod 02/03/22 06:47 Exam: Pre-Anes Outpt Exam: alert, oriented x 3, clear to auscultation bilaterally and regular rate & rhythm Cardiac Studies: Echocardiogram 12/31/20 Sestamibi Stress Test (Cardiology) 02/03 Cardiac Event Monitor 01/03/21
--- NOTE | 2022-02-03 08:16 | W.PM.OPSUD ---
Surgery/Procedure H&P Update DATE OF PROCEDURE: February 03, 2022 DATE H&P PERFORMED: 01/29/22 H&P UPDATE INFORMATION: I have reviewed H&P completed within last 30 days, I have examined patient prior to procedure and No changes to prior documentation PREOP DIAGNOSIS: pelvic mass PLANNED PROCEDURE: Operation Date: 02/03/22 08:10 Proposed Procedures p Total abdominal hysterectomy, bilateral salpingo-oophorectomy 95107,R19.00(Not Applicable) - Celeste Lyle MD s Salpingo-Oophorectomy (Vaginal)(Bilateral) - Celeste Lyle MD Related Problem List Diagnoses (1) Pelvic mass:
[2022-02-03] MEDS: ceFAZolin 2,000 MG in sodium chloride 0.9% (plus) 50 ML 100 MG IV ×3 (08:33→23:59)
[2022-02-03] MEDS: vasopressin 20 unit/mL INJ INJECTION (09:44)
--- NOTE | 2022-02-03 11:00 | P.OP_ITS ---
Operative Report Date of procedure: February 03, 2022 Pre-op diagnosis: Preop Diagnosis pelvic mass Post-op diagnosis: same Post-op findings: 12 week sized uterus with large fibroid present Procedure done: ANTHONY, BSO, myomectomy Specimens removed/disposition: uterus, tubes and ovaries to pathology Surgeon: Celeste Lyle Anesthesia: General Estimated blood loss (mL): 275 IV fluids (mL): 1,200 Urine output (mL): 250 Complications: none Condition: stable Disposition: PACU Procedure: The patient was taken to the operating room where general anesthesia was administered and found to be adequate. She was prepped and draped in the normal sterile fashion in the dorsal supine position. A gill catheter was placed. A Pfannenstiel skin incision was made and carried down to the underlying layer of fascia. The fascia was nicked in the midline and extended laterally with the Dee scissors. The fascia was then tented up and the rectus muscles dissected off sharply. The rectus muscles were in the midline and the abdomen entered bluntly with the digit. This peritoneal incision was extended superio rly and inferiorly with good visualization of the bladder. The O'Mekhi- O'Caballero retractor was placed and the bowel packed away. The uterus was very enlarged and it was difficult to see past it to the pelvis. The round ligament was suture-ligated and opened. This was performed bilaterally. A window was made medial to the infundibulopelvic ligament and inferior to the fallopian tube and ovary. The infundibulopelvic ligament was clamped cut and suture-ligated bilaterally. At this point, I couldn't go any further due to poor visualization. 5 ml of dilute pitressin was injected into the uterus. The uterine serosa was opened and the fibroid shelled out. The base was clamped and suture ligated. There was good visualization available now. The bladder flap was created sharply with the metzenbaum scissors and the bladder reflected caudally. The uterine arteries and cardinal ligaments were then clamped cut and suture-ligated down to the angle of the vagina. The vaginal cuff was clamped and cut and the specimen was removed. The vaginal cuff was closed with 0 Vicryl incorporating the uterosacral ligaments into the lateral aspects of the vaginal cuff. There was excellent hemostasis. The pelvis was irrigated. The O'Mekhi- O'Caballero retractor as well as the packing was removed. The peritoneum was closed with 3-0 Monocryl in a running fashion. The fascia was closed with 0 Vicryl in a running fashion with 2 separate sutures overlapping in the midline. The skin was closed with absorbable joe. The patient tolerated the procedure well. Sponge lap and needle counts were correct x2. She was taken to the recovery room in stable condition.
[2022-02-03] MEDS: ipratropium-albuterol 3 mL Neb INHALATION (11:15)
--- NOTE | 2022-02-03 11:29 | SUR.PHASEI ---
1106 PT TO PACU 5 WITH ORAL AIR[address] IN PLACE, GOOD RESP EFFORT NOTED PT WITH BILAT RHONCHI AND EXP WHEEZES TO UPPER LOBES WITH DIMINISHED BASES BILATERALLY , Rashard HARRIS BUTTON PUNCHER AT BEDSIDE AND ORDERS RECIEVED FOR DUONEB RESP TX NOW IN PACU SEE ORDERS PLACED ,PT MONITOR SR WITH NO ECTOPY, MASK AT 8L O2 88-89 % WITH GOOD RESP EFFORT NOTED ABDOMEN SOFT WITH DRESSING SILVALON D/I KAY TO DEPENDANT DRAINAGE ORANGE URINE NOTED TO TUBING AND BAG, STATLOCK TO RT INNER THIGH, BILAT SCDS ON PT , IV TO RT HAND WITH NS 600ML UP AT KVO RATE PER GRAVITY, ID BRACELET TO LT WRIST PT ID'D WITH 2 IDENTIFIERS . 1115 DUO NEB TX STARTED ORDERED PT REMAINS UNRESPONSIVE WITH ORAL AIRWAY IN PLACE, PT SATS UP TO 90-91% WITH TX. VSS.
--- NOTE | 2022-02-03 11:38 | SUR.PHASEI ---
1130 PT LUNG SOUND MUCH IMPROVED CLEAR WITH GOOD AIRMOVEMENT TO UPPER LOBES BILAT, SOME DIMINISHED TO LOWER LOBES BILAT, SATS NOW 93% NO DISTRESS NOTED PT DOES NOT AWAKE TO VOICE OR TOUCH BUT DOES MOVE TO TOUCH. VSS
--- NOTE | 2022-02-03 11:49 | SUR.PHASEI ---
1145 PT AWAKES TO TOUCH, PT ORAL AIRWAY OUT, PT ORIENTED X 3 , DENIES NAUSEA AND COLD STATES PAIN IS ( JUST A LITTLE BIT) PT QUICKLY BACK TO SLEEP PT PLACED ON 4LNC FOR COMFORT SATS 89-90 WITH NO DISTRESS NOTED HOB AT 30 DEGREES MONITOR SR WITH NO ECTOPY NOTED. PT TAKING OCCASIONAL ICE CHIPS
--- NOTE | 2022-02-03 12:06 | SUR.PHASEI ---
PT FAMILY UP DATED PT AWAKE ALERT AND STABLE , SLEEPS MOSTLY, FAMILY TO GET LUNCH AND WILL MEET PT IN OB DEPT. PT TAKING OCCASIONAL ICE CHIPS WITHOUT DIFFICULTY, SATS NOW 96% ON 4LNC.
--- NOTE | 2022-02-03 12:09 | SUR.PHASEI ---
DR BRICE AT BEDSIDE TALKING WITH PT , PT ASKING PERTINENT QUESTIONS ABOUT HER SURGURY, VSS.
--- NOTE | 2022-02-03 12:40 | SUR.PHASEI ---
PT AWAKE ALERT TALKATIVE, SMILING, VSS ABDOMEN UNCHANGED HANDOFF AT BEDSIDE TO LEYLA FULLER.
[2022-02-03] MEDS: HYDROcodone-acetaminophen 5-325 mg Tablet PO ×3 (12:58→23:59)
[2022-02-03] MEDS: ketorolac 30 mg/mL INJ IVP ×2 (12:58→19:21)
--- NOTE | 2022-02-03 13:28 | ANE.PACU2 ---
Inpatient post-anesthesia follow up: Airway intact: Yes Vital signs: Temperature 98.6 F Pulse Rate 96 Respiratory Rate 22 Blood Pressure 161/91 Pulse Oximetry 96 Oxygen Delivery Me thod Nasal Cannula Oxygen Flow Rate 4 Fraction of Inspir ed Oxygen Hydration adequate: Yes Nausea and vomiting: No Pain level: 1 Mental status: Baseline
[2022-02-03] MEDS: sodium chloride 0.9% 500 ML IV (16:47)
[2022-02-03] MEDS: dextrose 5%-lactated ringers 1,000 ML 125 ML IV (16:47)
[2022-02-03] MEDS: venlafaxine ER (24HR) 150 mg Capsule PO (21:08)
[2022-02-03] MEDS: atorvastatin 40 mg Tablet PO (21:08)
[2022-02-03] MEDS: metoprolol tartrate 25 mg Tablet PO (21:08)
[2022-02-03] MEDS: buPROPion SR (12 HR) 100 mg Tablet 200 MG PO (21:08)
[2022-02-03] MEDS: amlodipine 5 mg Tablet PO (21:08)
[2022-02-03] MEDS: docusate sodium 100 mg Capsule PO (21:08)
[2022-02-03] MEDS: lanolin oint 7 gm 1 APPLIC TOPICAL (21:39)
[2022-02-03] MEDS: calcium carbonate 500 mg Chew Tablet 1000 MG PO (22:16)
[2022-02-04] MEDS: ketorolac 30 mg/mL INJ IVP (01:01)
[2022-02-04] MEDS: alum-mag-hydroxide-sime 30 mL UDC PO ×3 (01:01→19:33)
[2022-02-04] MEDS: dextrose 5%-lactated ringers 1,000 ML 125 ML IV (02:29)
[2022-02-04 04:58] LABS: Hematocrit 36.2 % (37.0-47.0); Hemoglobin 12.1 g/dL (11.5-15.3); Mean Corpuscular HGB Conc 33.4 g/dL (30.0-36.0); Mean Corpuscular Hemoglobin 29.7 pg (28.0-34.0); Mean Corpuscular Volume 88.7 fl (81-99); Platelet Count 254 10^3/cmm (130-400); Red Blood Count 4.08 10^6/uL (4.1-5.3); Red Cell Distribution Width 13.2 % (12.1-15.1); White Blood Count 13.3 10^3/uL (4.0-10.0)
[2022-02-04 05:39] VITALS: BP 143/76; PULSE 84; RESP 16; TEMP 36.6; O2SAT 92
[2022-02-04] MEDS: HYDROcodone-acetaminophen 5-325 mg Tablet PO ×3 (06:17→20:24)
[2022-02-04 08:30] VITALS: BP 147/82; PULSE 83; RESP 17; TEMP 36.8; O2SAT 95
[2022-02-04] MEDS: phenazopyridine 100 mg Tablet 200 MG PO ×2 (08:31→20:25)
[2022-02-04] MEDS: aspirin 81 mg EC Tablet PO (08:32)
[2022-02-04] MEDS: clopidogrel 75 mg Tablet PO (08:32)
[2022-02-04] MEDS: buPROPion SR (12 HR) 100 mg Tablet 200 MG PO ×2 (08:32→20:25)
[2022-02-04] MEDS: metoprolol tartrate 25 mg Tablet PO ×2 (08:32→19:33)
[2022-02-04] MEDS: docusate sodium 100 mg Capsule PO ×2 (08:32→19:33)
--- NOTE | 2022-02-04 09:03 | PM.PN ---
Vitals/I&O/Wt Last Vital Signs Temp 97.9 F 02/04/22 05:39 Pulse 84 02/04/22 05:39 Resp 16 02/04/22 05:39 BP 143/76 02/04/22 05:39 Pulse Ox 92 02/04/22 05:39 O2 Del Method 02/04/22 05:39 O2 Flow Rate 1 02/03/22 17:30 02/03/22 02/04/22 02/04/22 22:59 06:59 14:59 Intake Total 2050 / 2400 1279.166 / 3679.166 Output Total 850 / 1625 1150 / 2775 Balance 1200 / 775 129.166 / 904.166 Weight last 48 hrs Weight 200 lb Physical Exam Narrative: The patient is doing well this morning. She has had her catheter removed. She hasn't been up walking yet. SCD's are on. She is tolerating a regular diet. She has a nicotine patch. Pain is well controlled on oral meds. Patient reports no vaginal bleeding Const: COMMON NORMALS: no acute distress, patient oriented x3, no limitations, alert and well nourished Resp: COMMON NORMALS: normal respiratory effort EFFORT & INSPECTION: Yes able to speak in complete sentences GI: COMMON NORMALS: Soft to palpation and non-tender PALPATION: Yes Soft to palpation Extremity: COMMON NORMALS: no calf tenderness Neuro: COMMON NORMALS: patient oriented x3 SENSORIUM/ORIENTATION: Yes alert Skin: WOUNDS: Yes surgical site (site is covered with silver dressing. No blood present) Urinary Catheter Management: [place]: Cath Placed During This Visit: yes, but has since been removed by the nurse Reason for Continuing Indwelling Catheter: Decision to DC Catheter Urinary Catheter Date of Insertion: 02/03/22 Urinary Catheter Time of Insertion: 08:54 Date Urinary Catheter Removed: 02/04/22 Time Urinary Catheter Discontinued: 04:45 Data 02/04/22 04:47 02/02/22 13:35 A&P Assessment and plan (1) Pelvic mass: The patient is doing well silver dressing for wound to hopefully avoid infection complication plavix and ASA have been restarted this morning and SCD's are on plan for discharge tomorrow Attestations Medical Necessity Statement*: The patient will be her 2 midnights Coding Level of Care Code Acute Cad Draftsman for Chg Fwd Diagnoses Pelvic mass R19.00
[2022-02-04] MEDS: ibuprofen 800 mg tablet PO ×2 (14:25→22:23)
[2022-02-04 16:00] VITALS: BP 120/72; PULSE 83; RESP 17; TEMP 37.3; O2SAT 92
[2022-02-04] MEDS: calcium carbonate 500 mg Chew Tablet 1000 MG PO (19:32)
[2022-02-04] MEDS: atorvastatin 40 mg Tablet PO (20:24)
[2022-02-04] MEDS: amlodipine 5 mg Tablet PO (20:24)
[2022-02-04] MEDS: venlafaxine ER (24HR) 150 mg Capsule PO (20:25)
[2022-02-04 21:41] VITALS: BP 135/89; PULSE 78; RESP 16; TEMP 37.4
[2022-02-05 04:10] VITALS: BP 110/71; PULSE 86; RESP 16; TEMP 37.4
--- NOTE | 2022-02-05 06:59 | P.DS_ITS ---
Discharge Providers Date of Admission: 02/03/22 10:58 Date of Discharge: February 05, 2022 Attending Provider at Admission: Celeste Lyle MD Attending Provider at Discharge: Celeste Lyle MD Primary Care Provider: ANNA Tellez Diagnoses at Discharge Discharge Diagnosis (1) Pelvic mass: Status: Acute Reason for Visit Reason for Visit: 73557, R19.00 Hospital Course Hospital Course The patient was admitted for surgery. She did well postoperatively and was ready for discharge on postop day #2 Physical Exam Narrative: The patient is doing well this morning. She has no concerns. Pain is well controlled. Tolerating a regular diet. ambulating without difficulty. Const: COMMON NORMALS: no acute distress, patient oriented x3, no limitations, healthy appearing, alert and well nourished GENERAL APPEARANCE: cooperative, comfortable, well kempt and well developed ORIENTATION/CONSCIOUSNESS: Yes awake, Yes oriented to person, Yes oriented to place and Yes oriented to time Resp: COMMON NORMALS: normal respiratory effort EFFORT & INSPECTION: Yes able to speak in complete sentences GI: COMMON NORMALS: Soft to palpation and non-tender PALPATION: Yes Soft to palpation Extremity: COMMON NORMALS: no calf tenderness Neuro: COMMON NORMALS: patient oriented x3 SENSORIUM/ORIENTATION: Yes alert, Yes oriented to person, Yes oriented to place and Yes oriented to time Psych: COMMON NORMALS: mental status grossly normal, Normal thought process present, cooperative, normal affect and speech normal APPEARANCE: Yes well kempt SPEECH: Yes normal speech THOUGHT PROCESS: Normal thought process present Skin: WOUNDS: Yes surgical site (clean/dry/covered) Urinary Catheter Management: [place]: Cath Placed During This Visit: yes, but has since been removed by the nurse Reason for Continuing Indwelling Catheter: Decision to DC Catheter Urinary Catheter Date of Insertion: 02/03/22 Urinary Catheter Time of Insertion: 08:54 Date Urinary Catheter Removed: 02/04/22 Time Urinary Catheter Discontinued: 04:45 Discharge Data Studies Completed and Pending Pending at discharge Category Date Time Status ES surgery / GI images Routine Exams 02/03/22 09:06 Ordered Urine Culture Routine Lab 02/03/22 09:25 Results Pathology: Surgical [PTH] Routine Pth 02/03/22 10:57 Received Laboratory Results WBC 13.3 10^3/uL (4.0-10.0) H 02/04/22 04:47 RBC 4.08 10^6/uL (4.1-5.3) L 02/04/22 04:47 Hgb 12.1 g/dL (11.5-15.3) 02/04/22 04:47 Hct 36.2 % (37.0-47.0) L 02/04/22 04:47 MCV 88.7 fl (81-99) 02/04/22 04:47 MCH 29.7 pg (28.0-34.0) 02/04/22 04:47 MCHC 33.4 g/dL (30.0-36.0) 02/04/22 04:47 RDW 13.2 % (12.1-15.1) 02/04/22 04:47 Plt Count 254 10^3/cmm (130-400) 02/04/22 04:47 MPV 10.0 fL (7.4-10.4) 02/04/22 04:47 Neut % (Auto) 72.3 % 02/02/22 13:35 Lymph % (Auto) 19.6 % 02/02/22 13:35 [place] % (Auto) 5.7 % 02/02/22 13:35 Eos % (Auto) 1.2 % 02/02/22 13:35 Baso % (Auto) 0.5 % 02/02/22 13:35 Neut # (Auto) 6.20 10^3/uL (1.8-7.7) 02/02/22 13:35 Lymph # (Auto) 1.7 10^3/uL (0.8-4.8) 02/02/22 13:35 [place] # (Auto) 0.5 10^3/uL (0.2-0.9) 02/02/22 13:35 Eos # (Auto) 0.1 10^3/uL (0.0-0.8) 02/02/22 13:35 Baso # (Auto) 0.0 10^3/uL (0.0-0.1) 02/02/22 13:35 Nucleated RBC % (auto) 0 % 02/02/22 13:35 Nucleated RBCs # 0.0 /100WBC 02/02/22 13:35 Sodium 135 mmol/L (136-145) L 02/02/22 13:35 Potassium 3.8 mmol/L (3.5-5.1) 02/02/22 13:35 Chloride 100 mmol/L (98-107) 02/02/22 13:35 Carbon Dioxide 22 mmol/L (22-29) 02/02/22 13:35 Anion Gap 16.8 (5-19) 02/02/22 13:35 BUN 10 mg/dL (6-20) 02/02/22 13:35 Creatinine 0.7 mg/dL (0.5-0.9) 02/02/22 13:35 GFR Calculation 85.6 mL/min (90-130) L 02/02/22 13:35 Glucose 156 mg/dL (65-115) H 02/02/22 13:35 Calculated Osmolality 282 mOsm/kg (285-295) L 02/02/22 13:35 Calcium 9.8 mg/dL (8.5-10.5) 02/02/22 13:35 Blood Type O Positive 02/02/22 13:35 Rho(D) Type Positive 02/02/22 13:35 Antibody Screen Negative 02/02/22 13:35 Vitals Last Vital Signs Temp 99.4 F 02/05/22 04:10 Pulse 86 02/05/22 04:10 Resp 16 02/05/22 04:10 BP 110/71 02/05/22 04:10 Pulse Ox 92 02/04/22 16:00 O2 Del Method 02/04/22 16:00 O2 Flow Rate 1 02/03/22 17:30 Discharge Plan Discharge Patient Disposition: Home Condition: Stable Prescriptions: New ibuprofen 800 mg Tablet 800 mg PO Q8H Qty: 30 0RF hydrocodone-acetaminophen 5-325 mg Tablet 1 tab PO Q4H PRN (Reason: Moderate To Severe Pain) Qty: 30 0RF docusate sodium 100 mg Capsule 100 mg PO BID Qty: 60 0RF Continued folic acid 1 mg tablet 1 mg PO DAILY cyanocobalamin (vitamin B-12) 1,000 mcg capsule 1,000 mcg PO DAILY amlodipine 5 mg tablet 5 mg PO BEDTIME venlafaxine [Effexor XR] 150 mg capsule,extended release 24hr 150 mg PO BEDTIME (DME) Night splint See Rx Instructions .ROUTE .MEDSUPPLY Qty: 1 0RF Rx Instructions: As directed bupropion HCl 200 mg tablet sustained-release 12 hr 200 mg PO BID magnesium oxide 200 mg magnesium tablet 400 mg PO DAILY clopidogrel 75 mg tablet 75 mg PO DAILY clobetasol 0.05 % ointment 1 applic topical BID Qty: 45 0RF Rx Instructions: apply to affeced area bid x 2 weeks then as directed metoprolol tartrate 25 mg tablet 25 mg PO BID Qty: 180 3RF aspirin 81 mg capsule 81 mg PO DAILY Qty: 90 0RF atorvastatin 40 mg Tablet 40 mg PO BEDTIME Qty: 90 0RF nitroglycerin 0.4 mg tablet, sublingual 0.4 mg sublingual Q5M PRN (Reason: chest pain) Qty: 20 0RF Rx Instructions: do not exceed 3 doses per episode Discharge Orders: Discharge Order (Routine); Ordered 02/05/22 Ordered By: Celeste Lyle Patient Instructions: Opioid Safety Discharge Attestations Time Spent in Discharge Care*: less than 30 min Quality Metrics Clinical Quality Measures [ No reported AMI, CVA or VTE this stay] Coding Level of Care Code Acute Chg FW DC note Diagnoses Pelvic mass R19.00
[2022-02-05] MEDS: docusate sodium 100 mg Capsule PO (08:13)
[2022-02-05] MEDS: HYDROcodone-acetaminophen 5-325 mg Tablet PO (08:13)
[2022-02-05] MEDS: ibuprofen 800 mg tablet PO (08:13)
[2022-02-05 08:15] VITALS: BP 150/80; PULSE 97; RESP 17; TEMP 37.2; O2SAT 97
[2022-02-05 08:30] VITALS: BP 150/80; PULSE 97; RESP 17; TEMP 37.2; O2SAT 97
== END 2022-02-05 08:30 | disposition home or self-care (01) | DRG 743 ==
LOC: OBGYN 02-04 00:48
PROVIDERS: Admitting Provider Obstetrics & Gynecology; PCP Nurse Practitioner Family; Visit Provider Obstetrics & Gynecology
PROC: 0UT90ZZ Resection of Uterus, Open Approach (ICD-10-PCS; CPT 58150; principal; 2022-02-03 08:10)
PROC: 0UT90ZZ Resection of Uterus, Open Approach (ICD-10-PCS; CPT 58720; 2022-02-03 08:10)
DX: D25.9 Leiomyoma of uterus, unspecified (principal); Z79.02 Long term (current) use of antithrombotics/antiplatelets; Z79.82 Long term (current) use of aspirin; I25.10 Atherosclerotic heart disease of native coronary artery without angina pectoris; F32.A Depression, unspecified; F17.210 Nicotine dependence, cigarettes, uncomplicated; I10 Essential (primary) hypertension; I69.311 Memory deficit following cerebral infarction
CPT/HCPCS: 36415; 51702; 80048; 85025; 85027; 86850; 86900; 87086; 88307; 90471; 90686; 96374; 96376; J0131; J0690; J1100; J1170; J1200; J1885; J2250; J2370; J2405; J2704; J2710; J3010; J3490; J7030; J7040; J7121

== ENCOUNTER 2022-03-19 10:34 | Emergency (ER) | payer OTHER, SELFPAY ==
[2022-03-19 10:36] VITALS: BP 138/94; PULSE 81; RESP 16; TEMP 36.3; O2SAT 98; BMI 31.1
[2022-03-19 11:05] VITALS: BP 126/84; BP 134/77; BP 139/87; PULSE 75; PULSE 81; PULSE 90
--- NOTE | 2022-03-19 11:05 | CT_ITS ---
WS: [id number] CT HEAD TECHNIQUE: Noncontrast CT of the head obtained from the skullbase to the vertex. CLINICAL INFORMATION: dizzyness, fall COMPARISON: None. DLP: 989.[address] scans at [facility] use at least one of these dose optimization techniques: automated e xposure control; mA and/or kV adjustment per patient size (includes targeted exams where dose is matc hed to clinical indication); or iterative reconstruction. FINDINGS: No evidence of intracranial hemorrhage or mass effect. Ventricular system and basal cisterns are [place] nt. Mild small vessel changes with mild parenchymal volume loss. Chronic lacunar infarcts in the bila teral basal ganglia similar to previous. Intracranial vascular calcification. No extra-axial fluid co llections. No evidence of mass or mass effect. Paranasal sinuses and mastoid air cells are well aerated. .Normal visualized soft tissues. CT/CT head wo con* [id number] IMPRESSION: 1. No evidence of intracranial hemorrhage or mass effect. 2. Mild small vessel changes with mild parenchymal volume loss. 3. Small chronic lacunar infarcts in the LEFT greater than RIGHT basal ganglia unchanged compared to previous. 4. No acute intracranial findings.
--- NOTE | 2022-03-19 11:11 | ECG_ITS ---
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 Measurements Intervals [place] Rate: 76 P: 38 MT: 159 QRS: 16 QRSD: 84 T: 52 QT: 380 QTc: 428 Interpretive Statements SINUS RHYTHM Compared to ECG 06/23/2021 23:39:14 No significant changes Electronically Signed On 03-19-2022 15:59:08 RHYTHMIC GYMNASTICS COACH by Megan Clements M.D. [email or web address]
--- NOTE | 2022-03-19 11:20 | W.ED.DIZZY ---
HPI - Dizziness General: Chief Complaint: Dizziness Stated Complaint: Dizziness for 3 days Time Seen by Provider: 03/19/22 11:04 Source: patient Mode of arrival: ambulatory History of Present Illness: HPI Narrative: 61-year-old female who presents to the emergency room with complaint of intermittent dizziness. She had some dizziness for the last 3 days she does not have any time she presents here and her gait is steady. Yesterday she was dizzy and if that she fell. She gets vertiginous-like symptoms. She has had a headache for the last few days as well. Some sinus congestion no fever sweats or chills she is on blood thinners. MD elicited complaint: dizziness Pertinent past history: other (History CVA) Onset (ago): day(s) (3) Severity: mild Description: sense of movement History of similar symptoms: Yes Exacerbating factors: nothing Relieving factors: nothing Associated symptoms: Denies change in hearing, chest pain, chills, cough, diaphoresis, ear discharge, ear pressure, fevers/chills, headache(s), malaise, nausea, nasal congestion, palpitations, rash, short of breath, syncope, tinnitus, vomiting or weakness Associated neuro symptoms: Deny confusion, difficulty speaking, dysphagia, diplopia, extremity weakness, facial numbness, facial weakness, gait changes, numbness in extremities or visual changes Review of Systems Const: Denies: fever(s), chills, malaise or diaphoresis ENMT: Denies: ear discharge, change in hearing, tinnitus or nasal congestion Card: Denies: chest pain, palpitations or syncope Resp: Denies: dyspnea, productive cough or non-productive cough GI: Denies: abdominal pain, nausea, vomiting or dysphagia : Denies: flank pain, difficulty voiding, dysuria, urinary frequency or urinary urgency Skin/Breast: Denies: rash or pruritus Neuro: Denies: headache(s), numbness in extremities or confusion PFSH ED PFSH: Medical History CAD (coronary artery disease) Depression Heavy cigarette smoker Hypertension Insomnia No pertinent past medical history neghx: dm,thyroid,dvt/pe PCP: Elza Black Non-pressure chronic ulcer of right heel and midfoot with fat layer exposed NSAID long-term use Pelvic mass Stroke (~12/2020) Managed on Plavix; some memory loss 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 Surgical History H/O: hysterectomy (~2021) History of endometrial ablation (~2003) Hx of colonoscopy (~2014) Hx of tubal ligation (~1996) Family History Father Hypertension Heart disease Brother Heart disease Mother Thyroid disease Denies family history of Colon cancer Ovarian cancer Diabetes Hypercholesteremia Breast cancer Uterine cancer Stroke Social History Smoking and tobacco status: current every day smoker Physical Exam Const: GENERAL APPEARANCE: cooperative and comfortable HENMT: COMMON NORMALS: normocephalic, atraumatic, hearing grossly normal bilaterally, external ears normal, EAC's normal, TM's normal bilaterally, Normal nasal mucous membranes and turbinates present, moist oral mucous membranes and oropharynx normal HEAD & SCALP: normocephalic and atraumatic NOSE: Normal nasal mucous membranes and turbinates present EXTERNAL EAR: Yes external ears normal EXTERNAL AUDITORY CANAL: EAC's normal TYMPANIC MEMBRANE: TM's normal bilaterally Eye: COMMON NORMALS: Equal, round and reactive pupils present, EOMs intact bilaterally, conjunctivae normal and no scleral icterus CONJUNCTIVA: Yes conjunctivae normal PUPIL: Yes Equal, round and reactive pupils present Neck/C-Spine: COMMON NORMALS: full ROM, no lymphadenopathy, supple and no JVD Resp: COMMON NORMALS: normal respiratory effort, No retractions, No use of accessory muscles and clear to auscultation bilaterally AUSCULTATION: clear to auscultation bilaterally Cardio: COMMON NORMALS: no JVD, regular rate, regular rhythm and No murmurs present (Cardio) RATE: regular rate RHYTHM: regular rhythm GI: COMMON NORMALS: Soft to palpation and No hepatosplenomegaly present AUSCULTATION: Yes normoactive bowel sounds PALPATION: Yes Soft to palpation, No Tenderness to palpation present (GI), No Guarding due to palpation present (GI) and Yes No hepatosplenomegaly present Extremity: COMMON NORMALS: normal to inspection, capillary refill normal, no clubbing, cyanosis or edema, no calf tenderness and no pedal edema Skin: COMMON NORMALS: no rashes or lesions noted GENERAL SKIN EXAM: no rashes or lesions noted Course Vital Signs: Vital signs: Vital Signs Temperature 97.4 F L 03/19/22 10:36 Pulse Rate 77 03/19/22 12:30 Respiratory Rate 16 03/19/22 10:36 Blood Pressure 132/72 03/19/22 12:30 Pulse Oximetry 98 03/19/22 12:30 Oxygen Delivery Me thod 03/19/22 11:40 MDM - Dizziness Medical Decision Making Head CT negative. No score 0. We will discharge patient home continue same medications give meclizine for labyrinthitis follow-up with primary care if not improving or worsens. Medical Records I reviewed the patient's medical records. Lab Data I reviewed the patient's lab results. 03/19/22 11:30 03/19/22 11:[address] 03/19/22 11:05 IMPRESSION: 1. No evidence of intracranial hemorrhage or mass effect. 2. Mild small vessel changes with mild parenchymal volume loss. 3. Small chronic lacunar infarcts in the LEFT greater than RIGHT basal ganglia unchanged compared to previous. 4. No acute intracranial findings. Laboratory Results WBC 8.2 10^3/uL (4.0-10.0) 03/19/22 11:30 RBC 5.14 10^6/uL (4.1-5.3) 03/19/22 11:30 Hgb 14.6 g/dL (11.5-15.3) 03/19/22 11:30 Hct 44.4 % (37.0-47.0) 03/19/22 11:30 MCV 86.4 fl (81-99) 03/19/22 11:30 MCH 28.4 pg (28.0-34.0) 03/19/22 11:30 MCHC 32.9 g/dL (30.0-36.0) 03/19/22 11:30 RDW 12.5 % (12.1-15.1) 03/19/22 11:30 Plt Count 301 10^3/cmm (130-400) 03/19/22 11:30 MPV 10.2 fL (7.4-10.4) 03/19/22 11:30 Neut % (Auto) 65.5 % 03/19/22 11:30 Lymph % (Auto) 22.8 % 03/19/22 11:30 [place] % (Auto) 6.6 % 03/19/22 11:30 Eos % (Auto) 3.2 % 03/19/22 11:30 Baso % (Auto) 0.9 % 03/19/22 11:30 Neut # (Auto) 5.38 10^3/uL (1.8-7.7) 03/19/22 11:30 Lymph # (Auto) 1.9 10^3/uL (0.8-4.8) 03/19/22 11:30 [place] # (Auto) 0.5 10^3/uL (0.2-0.9) 03/19/22 11:30 Eos # (Auto) 0.3 10^3/uL (0.0-0.8) 03/19/22 11:30 Baso # (Auto) 0.1 10^3/uL (0.0-0.1) 03/19/22 11:30 Nucleated RBC % (auto) 0 % 03/19/22 11:30 Nucleated RBCs # 0.0 /100WBC 03/19/22 11:30 Sodium 138 mmol/L (136-145) 03/19/22 11:30 Potassium 4.0 mmol/L (3.5-5.1) 03/19/22 11:30 Chloride 102 mmol/L (98-107) 03/19/22 11:30 Carbon Dioxide 24 mmol/L (22-29) 03/19/22 11:30 Anion Gap 16.0 (5-19) 03/19/22 11:30 BUN 11 mg/dL (6-20) 03/19/22 11:30 Creatinine 0.7 mg/dL (0.5-0.9) 03/19/22 11:30 GFR Calculation 85.6 mL/min (90-130) L 03/19/22 11:30 Glucose 132 mg/dL (65-115) H 03/19/22 11:30 Calculated Osmolality 287 mOsm/kg (285-295) 03/19/22 11:30 Calcium 10.1 mg/dL (8.5-10.5) 03/19/22 11:30 Discharge Plan Discharge Patient Disposition: Home Clinical Impression: Labyrinthitis Condition: Stable Prescriptions: New meclizine 25 mg tablet 25 mg PO QID PRN (Reason: dizziness) Qty: 30 0RF No Action folic acid 1 mg tablet 1 mg PO DAILY cyanocobalamin (vitamin B-12) 1,000 mcg capsule 1,000 mcg PO DAILY amlodipine 5 mg tablet 5 mg PO BEDTIME venlafaxine [Effexor XR] 150 mg capsule,extended release 24hr 150 mg PO BEDTIME (DME) Night splint See Rx Instructions .ROUTE .MEDSUPPLY Qty: 1 0RF Rx Instructions: As directed bupropion HCl 200 mg tablet sustained-release 12 hr 200 mg PO BID magnesium oxide 200 mg magnesium tablet 400 mg PO DAILY clopidogrel 75 mg tablet 75 mg PO DAILY clobetasol 0.05 % ointment 1 applic topical BID Qty: 45 0RF Rx Instructions: apply to affeced area bid x 2 weeks then as directed metoprolol tartrate 25 mg tablet 25 mg PO BID Qty: 180 3RF aspirin 81 mg capsule 81 mg PO DAILY Qty: 90 0RF atorvastatin 40 mg Tablet 40 mg PO BEDTIME Qty: 90 0RF nitroglycerin 0.4 mg tablet, sublingual 0.4 mg sublingual Q5M PRN (Reason: chest pain) Qty: 20 0RF Rx Instructions: do not exceed 3 doses per episode ibuprofen 800 mg Tablet 800 mg PO Q8H Qty: 30 0RF hydrocodone-acetaminophen 5-325 mg Tablet 1 tab PO Q4H PRN (Reason: Moderate To Severe Pain) Qty: 30 0RF docusate sodium 100 mg Capsule 100 mg PO BID Qty: 60 0RF Discharge Orders: Discharge ED (Routine); Ordered 03/19/22 Ordered By: Roderick Magaña Referrals: Elza Black FNP [Primary Care Provider] - Discharge Diet: Usual diet Discharge Activity: Increase activity as tolerated Activity Restrictions/Additional Instructions: You were seen for dizziness head CT was negative exam is normal at this time will discharge home with meclizine to use as needed for labyrinthitis symptoms if worsen or persist return Coding Level of Care Code ED [employer] Operator for Maddie Fwd Exam Comprehensive
[2022-03-19 11:39] LABS: Basophils # 0.1 10^3/uL (0.0-0.1); Basophils % 0.9 %; Eosinophils # 0.3 10^3/uL (0.0-0.8); Eosinophils % 3.2 %; Hematocrit 44.4 % (37.0-47.0); Hemoglobin 14.6 g/dL (11.5-15.3); Lymphocytes # 1.9 10^3/uL (0.8-4.8); Lymphocytes % 22.8 %; Mean Corpuscular HGB Conc 32.9 g/dL (30.0-36.0); Mean Corpuscular Hemoglobin 28.4 pg (28.0-34.0); Mean Corpuscular Volume 86.4 fl (81-99); Mean Platelet Volume 10.2 fL (7.4-10.4); Monocytes # 0.5 10^3/uL (0.2-0.9); Monocytes % 6.6 %; Neutrophils # 5.38 10^3/uL (1.8-7.7); Neutrophils % 65.5 %; Nucleated Red Blood Cells % 0 %; Platelet Count 301 10^3/cmm (130-400); Red Blood Count 5.14 10^6/uL (4.1-5.3); Red Cell Distribution Width 12.5 % (12.1-15.1); White Blood Count 8.2 10^3/uL (4.0-10.0)
[2022-03-19 11:40] VITALS: BP 141/78; PULSE 84; O2SAT 97
[2022-03-19 11:59] LABS: Blood Urea Nitrogen 11 mg/dL (6-20); Calcium 10.1 mg/dL (8.5-10.5); Carbon Dioxide 24 mmol/L (22-29); Chloride 102 mmol/L (98-107); Glomerular Filtration Rate 85.6 mL/min (90-130); Glucose 132 mg/dL (65-115); Osmolality Calculated 287 mOsm/kg (285-295); Sodium 138 mmol/L (136-145)
[2022-03-19 12:30] VITALS: BP 132/72; PULSE 77; O2SAT 98
== END 2022-03-19 12:30 | disposition home or self-care (01) ==
PROVIDERS: Emergency Provider Family Medicine; PCP Nurse Practitioner Family
DX: H83.09 Labyrinthitis, unspecified ear (principal); Z79.82 Long term (current) use of aspirin; Z79.02 Long term (current) use of antithrombotics/antiplatelets; I25.10 Atherosclerotic heart disease of native coronary artery without angina pectoris; I10 Essential (primary) hypertension; Z86.73 Personal history of transient ischemic attack (TIA), and cerebral infarction without residual deficits; F17.210 Nicotine dependence, cigarettes, uncomplicated
CPT/HCPCS: 36415; 70450; 80048; 85025; 93005; 99285

== ENCOUNTER 2022-07-06 11:35 | Outpatient (RCR) | payer OTHER, SELFPAY | END 2022-07-13 23:59 | disposition home or self-care (01) | LOC: SPT 11:35 | PROVIDERS: PCP Nurse Practitioner Family; Visit Provider Nurse Practitioner Family | DX: R42 Dizziness and giddiness (principal); Z87.820 Personal history of traumatic brain injury | CPT/HCPCS: 95992; 97161 ==

== ENCOUNTER 2022-07-31 20:55 | Emergency (ER) | payer OTHER, SELFPAY ==
[2022-07-31 21:08] VITALS: BP 147/83; PULSE 105; RESP 16; TEMP 36.5; O2SAT 98
--- NOTE | 2022-07-31 21:39 | ED_ITS ---
HPI - Extremity Problem General: Chief complaint: Extremity Injury, Lower Stated complaint: Injury Rt Knww Time Seen by Provider: 07/31/22 21:00 History of Present Illness: Patient is a 62-year-old female comes to the ED with pain to right lower extremity. Patient is currently on Plavix. Patient says approximately a week ago she had a fall and the anterior aspect of her pugh hit a door causing a small cut. Denies any head trauma or loss of consciousness. Over the past several days patient then had some swelling in right lower leg and ecchymosis. She has bruising all over her right lower leg, but she has been able to ambulate on right leg without any pain or difficulty since injury. Over the past couple days she started developing some more redness and warmth and pain around the area she had a small cut. Denies any purulent drainage. Denies any fevers or any red streaking up the leg. Associated symptoms: Deny chest pain, fever(s) or rash Review of Systems Const: Denies: fever(s), chills or fatigue Eyes: Denies: change in vision or eye discomfort ENMT: Denies: throat pain, odynophagia, nasal discharge or nasal congestion Card: Denies: chest pain, palpitations, edema, swelling of feet/ankles, dyspnea on exertion or orthopnea Resp: Denies: dyspnea, productive cough or non-productive cough GI: Denies: abdominal pain, nausea, vomiting, diarrhea, constipation or hematochezia : Denies: flank pain, dysuria or hematuria Musc: Denies: neck pain, back pain or extremity swelling Skin/Breast: Reports: new lesions (Cut on right pugh.); Denies: rash Neuro: Denies: headache(s), numbness in extremities or weakness in extremities PFS ED PFSH: Medical History CAD (coronary artery disease) Depression Heavy cigarette smoker Hypertension Insomnia No pertinent past medical history neghx: dm,thyroid,dvt/pe PCP: Elza Black Non-pressure chronic ulcer of right heel and midfoot with fat layer exposed NSAID long-term use Pelvic mass Stroke (~12/2020) Managed on Plavix; some memory loss 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 Surgical History H/O: hysterectomy (~2021) History of endometrial ablation (~2003) Hx of colonoscopy (~2014) Hx of tubal ligation (~1996) Family History Father Hypertension Heart disease Brother Heart disease Mother Thyroid disease Denies family history of Colon cancer Ovarian cancer Diabetes Hypercholesteremia Breast cancer Uterine cancer Stroke Social History Smoking and tobacco status: current every day smoker Substance/Drug Use: never Physical Exam Const: COMMON NORMALS: no acute distress, patient oriented x3, healthy appearing and alert HENMT: COMMON NORMALS: normocephalic HEAD & SCALP: normocephalic MOUTH: Normal oral and palatal mucosa present THROAT: posterior oropharynx normal and uvula midline Neck/C-Spine: COMMON NORMALS: supple GENERAL: Yes normal visual inspection Resp: COMMON NORMALS: normal respiratory effort, No retractions, No use of accessory muscles and clear to auscultation bilaterally AUSCULTATION: clear to auscultation bilaterally Cardio: COMMON NORMALS: regular rate, regular rhythm, S1 normal heart sound present, S2 normal heart sound present, No gallops present (Cardio), No clicks present (Cardio), No murmurs present (Cardio) and Peripheral pulses 2+ throughout RATE: regular rate RHYTHM: regular rhythm HEART SOUNDS: S1 normal heart sound present and S2 normal heart sound present PERIPHERAL PULSES: Peripheral pulses 2+ throughout GI: COMMON NORMALS: Normal to inspection, nondistended, normoactive bowel sounds present, Soft to palpation, non-tender and no masses PALPATION: Yes Soft to palpation : COMMON NORMALS: Yes no CVA tenderness BLADDER/KIDNEY EXAM: Yes no CVA tenderness Back/Pelvis: COMMON NORMALS: no CVA tenderness Extremity: NARRATIVE EXTREMITY EXAM: Right lower extremity?no signs of any compartment syndrome noted and patient has no tenderness to to palpation of foot or ankle just distal from injury site. Patient does have a hematoma with some extensive ecchymosis throughout right lower leg. Patient also has a small cut wound that has formed a scab with some surrounding erythema and warmth suggestive of possible developing cellulitis. No bleeding or purulent drainage seen. Neuro: COMMON NORMALS: patient oriented x3 SENSORIUM/ORIENTATION: Yes alert GAIT: Yes Normal gait present Skin: GENERAL SKIN EXAM: dry skin Course Vital Signs: Vital signs: Vital Signs Temperature 97.7 F 07/31/22 21:08 Pulse Rate 105 H 07/31/22 21:08 Respiratory Rate 16 07/31/22 21:08 Blood Pressure 147/83 07/31/22 21:08 Pulse Oximetry 98 07/31/22 21:08 Oxygen Delivery Me thod Room Air 07/31/22 21:08 MDM - Extremity (Nontraumatic) Medical Decision Making Patient is a 62-year-old female comes to the ED with pain to right lower extremity. Patient is currently on Plavix. Patient says approximately a week ago she had a fall and the anterior aspect of her pugh hit a door causing a small cut. Denies any head trauma or loss of consciousness. Over the past several days patient then had some swelling in right lower leg and ecchymosis. She has bruising all over her right lower leg, but she has been able to ambulate on right leg without any pain or difficulty since injury. Over the past couple days she started developing some more redness and warmth and pain around the area she had a small cut. Denies any purulent drainage. Denies any fevers or any red streaking up the leg. Vital stable. Right lower extremity?no signs of any compartment syndrome noted and patient has no tenderness to to palpation of foot or ankle just distal from injury site. Patient does have a hematoma with some extensive ecchymosis throughout right lower leg. Patient also has a small cut wound that has formed a scab with some surrounding erythema and warmth suggestive of possible developing cellulitis. No bleeding or purulent drainage seen. Patient was stable for discharge home and diagnosed with cellulitis and hematoma right lower leg. Patient was discharged home with a prescription for cephalexin. Told to follow-up with PCP in the next week for reevaluation. Return to ED precautions given. Patient understood and agreed with plan. Discharge Plan Discharge Patient Disposition: Home Clinical Impression: Hematoma of right lower leg Cellulitis Qualifiers: Site of cellulitis: extremity Site of cellulitis of extremity: lower extremity Laterality: right Qualified Code(s): L03.115 - Cellulitis of right lower limb Condition: Stable Prescriptions: New cephalexin 500 mg capsule 500 mg PO Q6H 7 Days Qty: 28 0RF No Action folic acid 1 mg tablet 1 mg PO DAILY cyanocobalamin (vitamin B-12) 1,000 mcg capsule 1,000 mcg PO DAILY amlodipine 5 mg tablet 5 mg PO BEDTIME venlafaxine [Effexor XR] 150 mg capsule,extended release 24hr 150 mg PO BEDTIME (DME) Night splint See Rx Instructions .ROUTE .MEDSUPPLY Qty: 1 0RF Rx Instructions: As directed bupropion HCl 200 mg tablet sustained-release 12 hr 200 mg PO BID magnesium oxide 200 mg magnesium tablet 400 mg PO DAILY clopidogrel 75 mg tablet 75 mg PO DAILY clobetasol 0.05 % ointment 1 applic topical BID Qty: 45 0RF Rx Instructions: apply to affeced area bid x 2 weeks then as directed metoprolol tartrate 25 mg tablet 25 mg PO BID Qty: 180 3RF aspirin 81 mg capsule 81 mg PO DAILY Qty: 90 0RF atorvastatin 40 mg Tablet 40 mg PO BEDTIME Qty: 90 0RF nitroglycerin 0.4 mg tablet, sublingual 0.4 mg sublingual Q5M PRN (Reason: chest pain) Qty: 20 0RF Rx Instructions: do not exceed 3 doses per episode meclizine 25 mg tablet 25 mg PO QID PRN (Reason: dizziness) Qty: 30 0RF ibuprofen 800 mg Tablet 800 mg PO Q8H Qty: 30 0RF hydrocodone-acetaminophen 5-325 mg Tablet 1 tab PO Q4H PRN (Reason: Moderate To Severe Pain) Qty: 30 0RF docusate sodium 100 mg Capsule 100 mg PO BID Qty: 60 0RF Discharge Orders: Discharge ED (Routine); Ordered 07/31/22 Ordered By: Javier Oh Referrals: Elza Black FNP [Primary Care Provider] - Discharge Diet: Regular Discharge Activity: Increase activity as tolerated Activity Restrictions/Additional Instructions: Follow-up with medical provider as directed in the next 5 to 7 days for reevaluation. Take medications as prescribed. Return to the ER or your medical provider if condition worsens. Please read and understand discharge instructions. Thank you for choosing [facility] for your healthcare needs today. Please realize this is an emergency room and that we are providing you with a medical screening exam and this may not be complete and all inclusive of all the testing and or work up that you may need to determine your ailment or severity of your illness. It is very important that you follow up as instructed or that you return to the Emergency Department should you have concerns or if your condition changes or worsens in any way. Coding Level of Care Code ED Solderer Electronic for Maddie Cade
== END 2022-07-31 21:51 | disposition home or self-care (01) ==
PROVIDERS: Emergency Provider Physician Assistant; PCP Nurse Practitioner Family
DX: L03.115 Cellulitis of right lower limb (principal)
CPT/HCPCS: 99283

== ENCOUNTER 2024-07-07 07:53 | Outpatient (CLI) | payer OTHER, SELFPAY ==
[2024-07-07] MEDS: iohexol 350 mg/mL 500 mL Btl (per mL) IV (08:15)
--- NOTE | 2024-07-07 09:00 | CT_ITS ---
WS: [id number] CT ANGIOGRAM CEREBRAL AND CAROTID ARTERIES HISTORY: I63.9 - Cerebral infarction, unspecified TECHNIQUE: CT angiogram is performed of the carotid and cerebral arteries. During arterial injection imaging is obtained from the skull vertex to the aortic arch in 1.25 mm imaging. Coronal and sagittal reformats are submitted. Additional multi planar reformats of the carotid and cerebral arteries are submitted, MIP imaging also reviewed. NASCET criteria utilized. All CT scans at [facility] use at least one of these dose optimization techniques: automated exposure control; mA and/or kV adjustment per patient size (includes targeted exams where dose is matched to clinical indication); or iterative reconstruction. CONTRAST: Omnipaque 350; 100 mL IV. DLP: 1250.80 mGy.cm COMPARISON: 03/19/[address] head: Bilateral symmetric cerebral atrophy. Numerous small lacunar infarcts in the basal ganglia. Perivascular space on the LEFT. Small lacunar infarct LEFT hager radiata. Carotid Angiogram: Right carotid: Common carotid artery: Arises normally from the innominate artery. No significant plaque or stenosis. Internal carotid artery: Small amount of plaque and intimal thickening at the bifurcation. No stenosis. External carotid artery: Patent. Left carotid: Common carotid artery: Arises normally from the aorta. No significant plaque or stenosis. Internal carotid artery: Intimal thickening and calcified plaque at the bifurcation. No stenosis. The amount of soft plaque at the LEFT bifurcation is decreased while the calcified plaque has increased. The central lumen is actually slightly increased in size since the prior study. External carotid artery: Patent. Right vertebral artery: Small caliber but patent Left vertebral artery: Normally arises from the subclavian. Slightly dominant. Patent. Subclavian arteries: No stenosis or significant abnormality. Upper thorax: Normal. Thyroid gland: Peripherally enhancing 12 mm RIGHT thyroid nodule. There is a smaller nodule in the LEFT thyroid. Osseous structures: Unremarkable. CEREBRAL ANGIOGRAM: Intracranial vertebral arteries: Patent. LEFT vertebral artery slightly dominant. Basilar artery: No significant stenosis or occlusion. No aneurysm. Intracranial Internal carotid arteries: Increasing calcified plaque through the cavernous sinuses. No 6 high-grade stenosis or aneurysm. Middle cerebral arteries: Normal. Anterior cerebral arteries and ACOM: Normal. Posterior cerebral arteries and PCOM's: Normal. Dural venous sinuses are normally enhancing. Mastoid air cells: Normal. Paranasal sinuses: Tiny amount of debris layering in the LEFT maxillary sinus. Calvarium: Normal. CT/CT angio headneck* [id number] IMPRESSION: 1. No high-grade cervical carotid artery stenosis. Increasing calcified plaque at the cervical carotid bifurcations. Remodeling of plaque in the LEFT cervica l carotid artery. Stenosis less than 50%. 2. No occlusions or aneurysms in the [place] of [place]. 3. Moderate plaque cavernous carotid arteries, stenosis less than 50%.
[2024-07-07 09:17] LABS: Blood Urea Nitrogen 7 mg/dL (8-23); Glomerular Filtration Rate 84.8 mL/min (90-130)
== END 2024-07-07 07:54 | disposition home or self-care (01) ==
PROVIDERS: PCP Nurse Practitioner Family; Visit Provider Psychiatry & Neurology Neurology
DX: I63.9 Cerebral infarction, unspecified (principal); I65.23 Occlusion and stenosis of bilateral carotid arteries
CPT/HCPCS: 70496; 70498; 82565; 84520

== ENCOUNTER 2024-08-07 15:06 | Outpatient (CLI) | payer OTHER, SELFPAY ==
--- NOTE | 2024-08-07 15:09 | MR_ITS ---
WS: [id number] MRI CERVICAL SPINE NONCONTRAST HISTORY: R HAND PARESTHESIA COMPARISON: None available. Technique: Multiplanar, multisequence noncontrast imaging of the cervical spine. Mild degenerative curvature cervical spine. 2 mm retrolisthesis of C5. Disc spaces are mildly narrowed and desiccated, most significant at C5-6 and C6-7. No acute fractures. Signal within the cervical cord is normal. Visualized posterior fossa is unremarkable. Craniocervical junction, C1 and C2 relationship, odontoid process and soft tissues are normal. C2-C3: Normal. C3-C4: Mild bilateral facet arthritis. Very tiny central disc protrusion. No stenosis. C4-C5: Mild disc bulging with a central disc protrusion. Bilateral foraminal osteophytes and mild facet arthritis. Mild central and bilateral foraminal stenosis. C5-C6: Diffuse annular disc bulging with osteophytic ridging and facet arthritis. There is mild disc osteophyte contact on the ventral thecal sac. Moderate central with moderate to severe bilateral foraminal stenosis and mild facet arthritis. Foraminal narrowing due to combination of disc osteophyte di sease. C6-C7: Diffuse annular disc bulging with bilateral foraminal disc osteophytes, LEFT greater than RIGHT. Bilateral mild facet arthritis. C7-T1: Normal. T1-2: Small central disc protrusion. Paraspinal soft tissue are normal. MR/MR cervical spin wo con* [id number] IMPRESSION: 1. Mild degenerative scoliosis cervical spine and facet arthropathy. 2. C5-6: Moderate central with moderate to severe bilateral foraminal stenosis due to combination of disc and osteophyte disease. Slightly larger osteophyte on the RIGHT. 3. C6-7: Mild central stenosis with bilateral moderate foraminal stenosis LEFT greater than RIGHT. Larger disc osteophyte complex in the LEFT foramen. 4. Mild facet joint arthritis from C3-4 through C6-7. 5. Very small central disc protrusion at T1-2. 6. C4-5: Mild central and bilateral foraminal stenosis due to disc osteophyte disease.
== END 2024-08-07 15:07 | disposition home or self-care (01) ==
PROVIDERS: PCP Nurse Practitioner Family; Visit Provider Physician Assistant
DX: M48.02 Spinal stenosis, cervical region (principal); M25.78 Osteophyte, vertebrae; M47.812 Spondylosis without myelopathy or radiculopathy, cervical region; M50.921 Unspecified cervical disc disorder at C4-C5 level; M50.922 Unspecified cervical disc disorder at C5-C6 level; M41.52 Other secondary scoliosis, cervical region; M51.24 Other intervertebral disc displacement, thoracic region
CPT/HCPCS: 72141

== ENCOUNTER 2024-08-15 13:24 | Outpatient (CLI) | payer OTHER, SELFPAY ==
--- NOTE | 2024-08-15 13:45 | MR_ITS ---
WS: [id number] MRI HEAD WITH CONTRAST TECHNIQUE: Sagittal T1, T2 axial, T2 axial FLAIR, axial susceptibility weighted imaging, axial diffusion weighted images, and coronal T2 images were obtained. Pre and post-T1 axial and post T1 coronal images. ADC and FSPGR images. CLINICAL INFORMATION: I99.8 - Other disorder of circulatory system COMPARISON: CT 03/19/2022 FINDINGS: No evidence of restricted diffusion to suggest acute ischemia. Ventricular system and basal cisterns are patent. Moderate small vessel changes. Moderate parenchymal volume loss. Small vessel changes in the papo. Chronic lacunar infarcts in the periventricular white matter and hager radiata. Normal posterior fossa. Normal vascular flow voids at the skull base. No extra- axial fluid collections. Mild mucosal thickening in the paranasal sinuses. Mastoid air cells are well aerated. No hemosiderin on the susceptibility weighted images. Normal optic chiasm and pituitary infundibulum. No abnormal gadolinium enhancement. MR/MR head wo/w con [id number] IMPRESSION: 1. No evidence of restricted diffusion to suggest acute ischemia. 2. Moderate small vessel changes with moderate parenchymal volume loss. 3. Chronic lacunar infarcts in the hager radiata and periventricular white ma tter. 4. No other acute findings.
[2024-08-15] MEDS: gadobenate dimeglumine 20 mL vial IV (14:11)
== END 2024-08-15 13:25 | disposition home or self-care (01) ==
PROVIDERS: PCP Nurse Practitioner Family; Visit Provider Psychiatry & Neurology Neurology
DX: I99.8 Other disorder of circulatory system (principal); R93.0 Abnormal findings on diagnostic imaging of skull and head, not elsewhere classified; J34.89 Other specified disorders of nose and nasal sinuses
CPT/HCPCS: 70553